=== PATIENT | female | born 1935 | race Caucasian/White ===

== ENCOUNTER → 2016-07-01 | Outpatient (CLI) | payer OTHER, MEDICARE | LOC: BHFA 10:45 | PROVIDERS: ATTEND Internal Medicine Cardiovascular Disease | DX: I48.91 Unspecified atrial fibrillation (principal); I34.8 Other nonrheumatic mitral valve disorders; I50.21 Acute systolic (congestive) heart failure; R60.9 Edema, unspecified; N18.4 Chronic kidney disease, stage 4 (severe); E03.9 Hypothyroidism, unspecified; N25.81 Secondary hyperparathyroidism of renal origin ==

== ENCOUNTER 2016-08-31 15:33 | Inpatient (IN) | payer OTHER, MEDICARE ==
--- NOTE | 2016-08-31 16:00 | EDPHY ---
H & P Stated Complaint: ?ALLERGIC REACTION ITCHY EYES/BODY EDEMA Time Seen by Provider: 08/31/16 15:59 Source: Patient Exam Limitations: No limitations - Personal History Current Tetanus/Diphtheria Vaccine: No Tetanus Vaccine Date: <10 YRS - Medical/Surgical History Hx Asthma: No Hx Chronic Respiratory Disease: No Hx Diabetes: No Hx Cardiac Disease: Yes Hx Renal Disease: Yes Hx Cirrhosis: No Hx Alcoholism: No Hx HIV/AIDS: No Hx Splenectomy or Spleen Trauma: No Other PMH: CHF, valve repair, magdalene hip repairs - Social History Smoking Status: Never smoked Constitutional: Initial Vital Signs Temperature (C) 36.7 C 08/31/16 15:48 Heart Rate 94 08/31/16 15:48 Respiratory Rate 17 08/31/16 15:48 Blood Pressure 109/62 08/31/16 15:48 O2 Sat (%) 94 08/31/16 15:48 O2 Delivery Mode Room Air Allergies/Adverse Reactions: IDODINE Allergy (Uncoded 08/31/16 15:45) SEASONAL Allergy (Uncoded 08/31/16 15:45) SNEEZING, RUNNY NOSE Home Medications: Medication Instructions Recorded Ascorbic Acid [Vitamin C 500 mg 500 mg PO TID 12/17/15 (*)] Herbals/Supplements -Info Only 1 ea PO DAILY 12/17/15 Acetaminophen [Tylenol 325mg (*)] 650 mg PO Q4 PRN #0 tab 01/10/16 Carvedilol [Coreg (*)] 12.5 mg PO BIDMEAL #0 tab 01/10/16 Fluocinolone 0.025% [Synalar 1 naheed TP TID #1 cream 01/10/16 0.025%] Magnesium Oxide [Magnesium Oxide 400 mg PO DAILY #30 tab 01/10/16 400 mg (*)] Nature Throid 65mg 1 tab PO DAILY #0 01/10/16 AMOXICILLIN 08/31/16 Torsemide 08/31/16 Departure - Departure Referrals: Shiloh Gotti MD [Primary Care Provider] - As per Instructions
[2016-08-31] MEDS ORDERED: FAMOTIDINE 20 MG/2 ML SDV IVP ONE (16:26)
--- NOTE | 2016-08-31 16:33 | CPEKG ---
Heart Rate: 103 RR Interval: 583 QRSD Interval: 134 QT Interval: 392 QTC Interval: 513 QRS [place]: -90 T Wave [place]: 77 EKG Severity - ABNORMAL ECG - EKG Impression: ATRIAL FIBRILLATION, V-RATE 74-144 EKG Impression: NONSPECIFIC IVCD WITH LAD EKG Impression: LEFT VENTRICULAR HYPERTROPHY Electronically Signed By: Denan Pulido 31-Aug-2016 19:39:06
--- NOTE | 2016-08-31 16:46 | EDPHY ---
H & P Stated Complaint: ?ALLERGIC REACTION ITCHY EYES/BODY EDEMA Time Seen by Provider: 08/31/16 15:59 HPI/ROS: CHIEF COMPLAINT: rash, increased leg swelling HISTORY OF PRESENT ILLNESS: 80-year-old female with past medical history of systolic heart failure, chronic atrial fibrillation, chronic kidney disease, hypertension, mitral and tricuspid valve repair presents emergency department complaining of a itchy rash that started yesterday. Patient is finishing a 5 day course of amoxicillin today from a dental procedure she had done in [place] 5 days ago. She reports it started with swelling around her eyes and progressed to a rash that is itchy to her arms, legs and torso. She denies wheezing, tongue swelling, difficulty breathing. Patient also reports increasing leg swelling over the past week with increased shortness of breath on exertion. She denies chest pain. Patient denies fevers or chills, no abdominal pain, no nausea, vomiting or diarrhea. She does report she has been feeling more tired over the last week and is sleeping a lot. REVIEW OF SYSTEMS: A comprehensive 10 point review of systems is otherwise negative aside from elements mentioned in the history of present illness. Source: Patient Exam Limitations: No limitations - Personal History Current Tetanus/Diphtheria Vaccine: No Tetanus Vaccine Date: <10 YRS - Medical/Surgical History Hx Asthma: No Hx Chronic Respiratory Disease: No Hx Diabetes: No Hx Cardiac Disease: Yes Hx Renal Disease: Yes Hx Cirrhosis: No Hx Alcoholism: No Hx HIV/AIDS: No Hx Splenectomy or Spleen Trauma: No Other PMH: CHF, valve repair, magdalene hip repairs - Social History Smoking Status: Never smoked - Physical Exam Exam: Physical Exam Gen: Alert and Oriented, NAD HEENT: PERRL, moist mucous membranes NECK: no meningismus CV: Systolic murmur, irregular rhythm PULM: CTAB, no wheezes ABDOMEN: soft, swelling, non tender to palpation, BS present BACK: No CVA tenderness NEURO: Neurologically grossly intact EXTREMITIES: Pitting edema bilateral lower extremities with dry scaly rash. SKIN: Raised red rash to face, trunk, arms and legs PSYCH: answers questions appropriately. Constitutional: Initial Vital Signs Temperature (C) 36.7 C 08/31/16 15:48 Heart Rate 94 08/31/16 15:48 Respiratory Rate 17 08/31/16 15:48 Blood Pressure 109/62 08/31/16 15:48 O2 Sat (%) 94 04/09/17 15:48 O2 Delivery Mode Nasal Cannula O2 (L/minute) 2 Allergies/Adverse Reactions: IDODINE Allergy (Uncoded 08/31/16 15:45) SEASONAL Allergy (Uncoded 08/31/16 15:45) SNEEZING, RUNNY NOSE Home Medications: Medication Instructions Recorded Ascorbic Acid [Vitamin C 500 mg 500 mg PO QID 12/17/15 (*)] Herbals/Supplements -Info Only 1 ea PO DAILY 12/17/15 Aspirin EC [Aspirin EC 81 mg (*)] 81 mg PO DAILY 08/31/16 Calcitriol [Calcitriol (*)] 0 mcg PO DAILY 08/31/16 Carvedilol [Coreg (*)] 6.25 mg PO BIDMEAL 08/31/16 Melatonin [Melatonin 3 MG (*)] 3 mg PO HS 08/31/16 Thyroid 65 mg PO DAILY 08/31/16 Medical Decision Making - Diagnostics EKG Interpretation: EKG shows atrial fibrillation with nonspecific intraventricular conduction delay with left axis deviation Imaging: Chest x-ray independently reviewed by me- Impression: Chronic compensated CHF with a dominant large left atrium. Dictated By: Shaun Hernandez MD ED Course/Re-evaluation: 80-year-old female with history of CHF and chronic AFib unwilling to take anticoagulation with a echocardiogram done in December of 2015 showing a thrombus in her left atria, presents emergency department with worsening shortness of breath and swelling in her lower extremities as well as an allergic reaction to amoxicillin with urticaria and a pruritic rash. IV is established, CBC, chemistry panel, BMP, troponin, EKG, chest x-ray those have been ordered. Patient is given 25 mg of Benadryl IV and 20 mg of Pepcid for her rash. Patient has a BNP of 2780, troponin is negative, CBC is unremarkable, creatinine is 1.3 which is baseline for patient, BUN is 34. Troponin is negative. She is refusing a dose of IV Lasix. Patient will be admitted to the hospitalist for a congestive heart failure exacerbation as well as she will be treated for this rash which is likely an allergic reaction to amoxicillin. Patient agrees with this plan. - Data Points Laboratory Results: Laboratory Results 09/01/16 04:05 09/01/16 04:05 Medications Given: Discontinued Medications Bumetanide (Bumex) 0.5 mg IVP DAILY ONE Stop: 08/31/16 17:38 Last Admin: 08/31/16 18:31 Dose: 0.5 mg Bumetanide (Bumex) 0.5 mg IVP ONCE ONE Stop: 09/01/16 15:59 Last Admin: 09/01/16 16:28 Dose: 0.5 mg Diphenhydramine HCl (Benadryl Injection) 25 mg IVP EDNOW ONE Stop: 08/31/16 16:27 Last Admin: 08/31/16 17:03 Dose: 25 mg Famotidine (Pepcid) 20 mg IVP EDNOW ONE Stop: 08/31/16 16:27 Last Admin: 08/31/16 17:04 Dose: 20 mg Prednisone (Prednisone) 60 mg PO ONCE ONE Stop: 09/01/16 15:59 Last Admin: 09/01/16 16:29 Dose: 60 mg Departure - Departure Disposition: [facility] Acute Clinical Impression: CHF exacerbation Qualifiers: Congestive heart failure type: systolic Qualified Code(s): I50.23 - Acute on chronic systolic (congestive) heart failure Condition: Fair
[2016-08-31 16:48] LABS: % IMMATURE GRANULYOCYTES 0.3 % (0.0-1.1); ABSOLUTE IMMATURE GRANULOCYTES 0.02 10^3/uL (0.00-0.10); ADD DIFF? NO; ADD MORPH? NO; ADD SCAN? NO; ATYPICAL LYMPHOCYTE FLAG 10 (0-99); FRAGMENT RBC FLAG 0 (0-99); HEMATOCRIT 35.9 % (38.0-47.0); HEMOGLOBIN 12.2 g/dL (12.6-16.3); LEFT SHIFT FLG 0 (0-99); LIPEMIA HEMOLYSIS FLAG 90 (0-99); MEAN CELL HEMOGLOBIN 32.4 pg (27.9-34.1); MEAN CELL VOLUME 95.5 fL (81.5-99.8); MEAN PLATELET VOLUME 9.2 fL (8.7-11.7); PLATELET CLUMPS FLAG 0 (0-99); PLATELET COUNT 197 10^3/uL (150-400); RED BLOOD CELL COUNT 3.76 10^6/uL (4.18-5.33); RED CELL DISTRIBUTION WIDTH 14.1 % (11.5-15.2)
[2016-08-31 17:05] LABS: INR 1.15 (0.83-1.16); PROTIME(PATIENT) 14.7 SEC (12.0-15.0)
[2016-08-31 17:06] LABS: APTT 33.1 SEC (23.0-38.0)
[2016-08-31 17:09] LABS: ANION GAP 11 mEq/L (8-16); CALCIUM 9.2 mg/dL (8.5-10.4); CARBON DIOXIDE 25 mEq/l (22-31); CHLORIDE 101 mEq/L (97-110); CREATININE 1.3 mg/dL (0.6-1.0); GLOMERULAR FILTRATION RATE 39; GLUCOSE 101 mg/dL (70-100); POTASSIUM 4.5 mEq/L (3.5-5.2); SODIUM 137 mEq/L (134-144)
[2016-08-31 17:19] LABS: TROPONIN I < 0.012 ng/mL (0-0.034)
[2016-08-31] MEDS ORDERED: ONDANSETRON DISINTEGRATING 4 MG TAB PO PRN (17:35)
[2016-08-31] MEDS ORDERED: oxyCODONE IR 5 MG TAB PO PRN (17:35)
[2016-08-31] MEDS ORDERED: ACETAMINOPHEN 325 MG TAB PO PRN (17:35)
[2016-08-31] MEDS ORDERED: BUMETANIDE 1 MG/4 ML VIAL IVP ONE (17:37)
--- NOTE | 2016-08-31 18:14 | GHP ---
[f rep st] HISTORY AND PHYSICAL DATE OF ADMISSION: 08/31/2016 CHIEF COMPLAINT: Rash. HISTORY OF PRESENT ILLNESS: This is an 80-year-old female with systolic heart failure who presents with a rash. She started amoxicillin a few days ago due to a dental procedure that was performed in [facility]. She has taken now 2 days' worth of amoxicillin, tonight was supposed to be her last dose. She noticed a rash that started a couple days ago. Pruritic, on her face. It seems to have start ed on her shoulders but it spread to her chest and face. She also notes some eye edema. She has no oral involvement. She also notes that she has gained water weight recently. She prefers holistic medicine overall and it seems to be intermittently, taking her torsemide and Aldactone. She feels a s though these make her itch as well. She notes that she has gained weight. She has gotten more sh ort of breath with exertion. She has increased edema in her legs as well as abdominal distention. She has no chest pain. PAST MEDICAL/SURGICAL HISTORY: 1. Systolic CHF with an EF of 40-45%. 2. Chronic kidney disease. Baseline about 1.4. 3. Chronic atrial fibrillation with possible LA thrombus, refuses anticoagulation, has been on aspi rin. MEDICATIONS: Please see medication reconciliation. ALLERGIES: Iodine. FAMILY HISTORY: No heart disease. SOCIAL HISTORY: She occasionally drinks alcohol. She does not smoke. She is very concerned about her son whose partner has had a stroke about a year ago and has never recovered. REVIEW OF SYSTEMS: A 10-point review of systems is conducted and is negative except per HPI. PHYSICAL EXAM: VITAL SIGNS: Blood pressure 109/62, heart rate 94, respiration rate 17, saturating 94% on room air, temperature is 36.7. GENERAL: The patient is a very pleasant female who appears m ildly uncomfortable due to itching, otherwise no acute distress. HEENT shows her to be normocephali c, atraumatic. CARDIOVASCULAR: Irregularly irregular. She has a split S2. There are no murmurs, rubs, or gallops. PULMONARY: Lungs clear to auscultation bilaterally. ABDOMEN: Soft, mildly dist ended, otherwise not tender to palpation. SKIN: A diffuse papular rash, consistent with urticaria on her face, ankles and chest. exam: No Mccrary. NEUROLOGIC: Alert and oriented x3. She is mov ing all extremities. PSYCHIATRIC: Normal mood and affect. LABS: Hemoglobin 12.2. INR is 1.1. Creatinine is 1.3. BNP is 2780. DATA: 1. EKG, which I personally reviewed and interpreted, shows incomplete left bundle branch block. Sh avani is in AFib. This is unchanged from prior. 2. Chest x-ray, which I personally reviewed and interpreted, shows she has cardiomegaly, she has mi ld cephalization of her pulmonary vasculature. IMPRESSION AND PLAN: An 80-year-old female who presents with volume overload, likely secondary to c ongestive heart failure. 1. Acute on chronic systolic congestive heart failure: Suspect that this is due to her unwillingne ss to take diuretics. She has an ejection fraction of 40-45%. I do not think we need to repeat an echocardiogram at this point. I will trend troponins. We will give her a dose of Bumex as she does not furosemide. I have scheduled this for 0.5 mg daily. We will follow her electrolytes while on IV diuretics. Follow her weights and I's and O's. 2. Urticaria: Suspect this due to amoxicillin. She has already received Pepcid as well as Benadry l. We will not give her additional treatment at this point but consider steroids if this worsens. 3. Atrial fibrillation: She possibly had a left atrial thrombus seen last summer. She has refused anticoagulation. She is ambivalent about aspirin. I have written for her to start this. She is c urrently rate controlled. 4. Chronic kidney disease. Baseline creatinine about 1.4: Follow her renal function closely, avoi d nephrotoxins. 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 Agarwal. 5. Code status is full. 6. VTE risk is high. I will give her subcu Lovenox. /[id number]/MODL
[2016-08-31] MEDS: ASCORBIC ACID 500 MG TAB PO SCH (21:08)
[2016-08-31] MEDS: MELATONIN 3 MG TAB PO SCH (21:08)
[2016-08-31] MEDS: CARVEDILOL 6.25 MG TAB PO SCH (21:08)
[2016-08-31] MEDS: diphenhydrAMINE 25 MG CAP PO PRN (23:52)
[2016-09-01 04:43] LABS: % IMMATURE GRANULYOCYTES 0.5 % (0.0-1.1); ABSOLUTE IMMATURE GRANULOCYTES 0.02 10^3/uL (0.00-0.10); ADD DIFF? NO; ADD MORPH? NO; ADD SCAN? NO; ATYPICAL LYMPHOCYTE FLAG 10 (0-99); FRAGMENT RBC FLAG 0 (0-99); HEMATOCRIT 32.3 % (38.0-47.0); HEMOGLOBIN 10.7 g/dL (12.6-16.3); LEFT SHIFT FLG 0 (0-99); LIPEMIA HEMOLYSIS FLAG 80 (0-99); MEAN CELL HEMOGLOBIN 32.2 pg (27.9-34.1); MEAN CELL HEMOGLOBIN CONCENTR. 33.1 g/dL (32.4-36.7); MEAN CELL VOLUME 97.3 fL (81.5-99.8); MEAN PLATELET VOLUME 9.2 fL (8.7-11.7); PLATELET CLUMPS FLAG 0 (0-99); PLATELET COUNT 160 10^3/uL (150-400); RED BLOOD CELL COUNT 3.32 10^6/uL (4.18-5.33); RED CELL DISTRIBUTION WIDTH 14.2 % (11.5-15.2)
[2016-09-01 05:10] LABS: ANION GAP 7 mEq/L (8-16); CARBON DIOXIDE 24 mEq/l (22-31); CHLORIDE 106 mEq/L (97-110); CREATININE 1.4 mg/dL (0.6-1.0); GLOMERULAR FILTRATION RATE 36; GLUCOSE 74 mg/dL (70-100); SODIUM 137 mEq/L (134-144)
[2016-09-01 05:11] LABS: TROPONIN I 0.016 ng/mL (0-0.034)
[2016-09-01] MEDS: CARVEDILOL 6.25 MG TAB PO SCH ×2 (08:23→18:14)
[2016-09-01] MEDS: ASPIRIN EC 81 MG TAB PO SCH (08:23)
[2016-09-01] MEDS: ASCORBIC ACID 500 MG TAB PO SCH ×4 (08:25→22:08)
[2016-09-01] MEDS: diphenhydrAMINE 25 MG CAP PO PRN ×2 (08:31→15:56)
[2016-09-01] MEDS: THYROID 65 MG PO SCH (09:02)
[2016-09-01] MEDS: ENOXAPARIN 30 MG/0.3 ML SYR SC SCH (09:21)
[2016-09-01] MEDS ORDERED: BUMETANIDE 1 MG/4 ML VIAL IVP ONE (15:58)
[2016-09-01] MEDS ORDERED: predniSONE 20 MG TAB PO ONE (15:58)
--- NOTE | 2016-09-01 16:03 | HOSPPROG ---
Hospitalist Progress Note Assessment/Plan: 80 yo F w AF, systolic heart failure and recent Shirin tooth extraction here w rash rash: suspect amoxicillin allergy although she notes rash to lasix as well so may have sulfa allergy ongoing sx dose of pred 60 X 1 systolic heart failure: elevated bnp and edema add'l dose bumex now AF: rate controlled on asa has refused anticoag tooth extraction: has essentially completed course of abx dispo: likely home in AM Subjective: itching. tele: AF (interp by me) Objective: Vital Signs Temp Pulse Resp BP Pulse Ox 36.9 C 100 20 113/70 91 L 09/01/16 15:41 09/01/16 15:41 09/01/16 15:41 09/01/16 15:41 09/01/16 15:43 Laboratory Results 09/01/16 04:05 09/01/16 04:05 08/31/16 09/01/16 09/02/16 05:59 05:59 05:59 Intake Total 650 Output Total 800 Balance -150 PT 14.7 SEC (12.0-15.0) 08/31/16 16:40 INR 1.15 (0.83-1.16) 08/31/16 16:40 - Physical Exam Constitutional: no apparent distress, appears nourished Eyes: PERRL, anicteric sclera Ears, Nose, Mouth, Throat: moist mucous membranes, hearing normal Cardiovascular: no murmur, rub, or gallop, irregularly irregular Respiratory: no respiratory distress, no rales or rhonchi Gastrointestinal: normoactive bowel sounds, soft, non-tender abdomen Genitourinary: No hines in urethra Skin: other (erythematous rash throughout. skin sloughing on feet) Musculoskeletal: full muscle strength, no muscle tenderness Neurologic: AAOx3 ICD10 Worksheet Patient Problems: Problems Problem Status Onset CHF exacerbation Acute Transient ischemic attack Active Atrial fibrillation Acute CHF (congestive heart failure) Acute Chronic Disease Mgmt/Transitional Care Acute
[2016-09-01] MEDS: MELATONIN 3 MG TAB PO SCH (22:08)
[2016-09-02 06:46] VITALS: O2SAT 94
[2016-09-02 07:54] VITALS: BP 111/68; PULSE 93; RESP 16; TEMP 97.5
[2016-09-02] MEDS: CARVEDILOL 6.25 MG TAB PO SCH (08:28)
[2016-09-02] MEDS: ASCORBIC ACID 500 MG TAB PO SCH (08:28)
[2016-09-02] MEDS: ENOXAPARIN 30 MG/0.3 ML SYR SC SCH (08:28)
[2016-09-02] MEDS: THYROID 65 MG PO SCH (08:28)
[2016-09-02] MEDS: ASPIRIN EC 81 MG TAB PO SCH (08:28)
[2016-09-02] MEDS ORDERED: predniSONE 20 MG TAB PO ONE (10:33)
--- NOTE | 2016-09-02 10:34 | HOSPPROG ---
Hospitalist Progress Note Assessment/Plan: 80 yo F w AF, systolic heart failure and recent Shirin tooth extraction here w rash rash: suspect amoxicillin allergy although she notes rash to lasix as well so may have sulfa allergy ongoing sx dose of pred 60 X 1 systolic heart failure: elevated bnp and edema add'l dose bumex now AF: rate controlled on asa has refused anticoag tooth extraction: has essentially completed course of abx dispo: home today > 30 minutes Subjective: rash better. ready for dc Objective: Vital Signs Temp Pulse Resp BP Pulse Ox 36.4 C 93 16 111/68 94 09/02/16 07:54 09/02/16 07:54 09/02/16 07:54 09/02/16 07:54 09/02/16 07:54 09/01/16 09/02/16 09/03/16 05:59 05:59 05:59 Intake Total 2630 Output Total 0 Balance 580 PT 14.7 SEC (12.0-15.0) 08/31/16 16:40 INR 1.15 (0.83-1.16) 08/31/16 16:40 - Physical Exam Constitutional: no apparent distress, not in pain Eyes: PERRL, anicteric sclera Ears, Nose, Mouth, Throat: moist mucous membranes, hearing normal Cardiovascular: no murmur, rub, or gallop, irregularly irregular Respiratory: no respiratory distress, no rales or rhonchi Gastrointestinal: normoactive bowel sounds, soft, non-tender abdomen Genitourinary: No hines in urethra Skin: warm, normal color Musculoskeletal: full muscle strength Neurologic: AAOx3 Psychiatric: interacting appropriately ICD10 Worksheet Patient Problems: Problems Problem Status Onset CHF exacerbation Acute Transient ischemic attack Active Atrial fibrillation Acute CHF (congestive heart failure) Acute Chronic Disease Mgmt/Transitional Care Acute
--- NOTE | 2016-09-02 11:08 | GDS ---
[f rep st] DISCHARGE SUMMARY DISCHARGE DIAGNOSES: 1. Drug rash, presumed secondary to either amoxicillin or Lasix. 2. Atrial fibrillation. 3. Mild systolic heart failure. CONSULTS DURING THIS ADMISSION: None. HOSPITAL COURSE: Please see admission history and physical by Dr. Jose Alberto Flynn. Patient presented with rash attributable to the aforementioned drugs. She received a couple doses o f prednisone after it was persistent through some Benadryl. She is discharged home today. Given the fact that this was possibly due to the sulfa part of Lasix, she was given a prescription for 0.5 of Bumex to take on a daily p.r.n. basis, as this is how she t akes her Lasix. She is urged to follow up with Dr. Gus Longoria, her jet pilot. /[id number]/MODL
== END 2016-09-02 10:53 | disposition home or self-care (01) | DRG 293 ==
LOC: F2W 18:33 → OBSVTOIN 09-01 15:59
PROVIDERS: ADMIT Student in an Organized Health Care Education/Training Program; ATTEND Internal Medicine
DX: I50.23 Acute on chronic systolic (congestive) heart failure (principal); L27.0 Generalized skin eruption due to drugs and medicaments taken internally; T36.0X5A Adverse effect of penicillins, initial encounter; T50.1X5A Adverse effect of loop [high-ceiling] diuretics, initial encounter; N18.9 Chronic kidney disease, unspecified; I48.91 Unspecified atrial fibrillation; Z79.82 Long term (current) use of aspirin
CPT/HCPCS: 96374; G0378; J1200; J1650

== ENCOUNTER → 2016-09-08 | Outpatient (CLI) | payer OTHER, MEDICARE | LOC: BHFA 09:15 | PROVIDERS: ATTEND Internal Medicine Cardiovascular Disease | DX: I42.9 Cardiomyopathy, unspecified (principal) ==

== ENCOUNTER 2017-04-29 15:29 | Inpatient (IN) | payer OTHER, MEDICARE ==
--- NOTE | 2017-04-29 15:47 | EDPHY ---
HPI/HX/ROS/PE/MDM Narrative: CHIEF COMPLAINT: Body cramping, malaise, and chills HISTORY OF PRESENT ILLNESS: The patient is an 81 y/o female with a history of CHF, atrial fibrillation, and a valve repair complaining body cramps, general malaise, and chills since Thursday , 3 days ago. Her symptoms have progressively worsened since Thursday and she has felt shakier and weaker since then as well. Denies a history of fever. Denies upper respiratory infection symptoms, or cough. Patient reports having a sat monitor at home and noticing that last night her heart rate was 134 and her O2Sats were in the 80s. Denies taking anticoagulants, Aspirin or Lasix. Denies receiving flu vaccination this year. No sore throat, chest pain, shortness of breath, vomiting, diarrhea, urinary complaints, headache, lightheadedness, vision changes. REVIEW OF SYSTEMS: Aside from elements discussed in the HPI, a comprehensive 10-point review of systems was reviewed and is negative. PAST MEDICAL HISTORY: CHF, valve repair, bilateral hip repair, hypothyroid, atrial fibrillation, renal insufficiency SOCIAL HISTORY: Lives in [place], single, retired VITAL SIGNS: BP: 116/59, others reviewed by me as normal. Heart rate in the 70s , sinus on the monitor. GENERAL: Well-developed, well-nourished, resting comfortably in no respiratory distress. HEENT: Atraumatic. Eyes: No icterus, no injection. Mouth: moist mucous membranes. No erythema or lesions. Neck: supple with no adenopathy. LUNGS: Clear to auscultation bilaterally, no wheezes, rhonchi or rales. CARDIAC: Soft diastolic murmur. Regular rate and rhythm, no rubs or gallops. ABDOMEN: Soft, nontender, nondistended, bowel sounds normal. BACK: No CVA tenderness. EXTREMITIES: Bilateral pedal edema, right worse than left. No trauma. Range of motion is normal throughout. NEURO: Alert and oriented, grossly nonfocal. SKIN: Warm and dry, no rash. PSYCHIATRIC: Normal mentation, no agitation. Portions of this note were transcribed by a medical office representative. I personally performed a history, physical exam, medical decision making, and confirmed accuracy of information the transcribed note. ED Course: The patient is an 81 y/o female with a history of CHF, atrial fibrillation, and a valve repair presenting with feeling weak and chilled since Thursday, 3 days ago. On exam she has a soft diastolic murmur and bilateral pedal edema. Chest X- ray, lower extremity US, and labs ordered. 1601: Chest x-ray reveals compensated chronic CHF. 1739: Patient's LFT's are elevated; RUQ US ordered. Spoke with radiologist, he reports the patient has negative US findings. 1837: Patient has an elevated d-dimer and creatinine. Unable to evaluate for pulmonary embolism secondary to the patient's elevated creatinine and history a contrast dye allergy. 1853: Consulted with hospitalist service, Dr. Somers accepts admission of this patient. Admitting diagnosis includes fatigue, history of tachycardia, elevated D-dimer and risks for pulmonary embolisms. Shortly after discussing the patient's course with the hospitalist service, patient was noted to develop a tachycardia. Initially this was felt to be atrial fibrillation, however the patient's rate is quite regular on the monitor. EKG was obtained and demonstrates a wide complex tachycardia. Course was discussed by Dr. Somers with Dr. Gerardo from Cardiology. Morphology of this tachycardia similar to patient's prior EKG when she was in atrial fibrillation with rapid ventricular rate. Decision was made that this rhythm most likely representing atrial fibrillation with aberrancy. Diltiazem was ordered. Patient's blood pressure remained stable. Patient was admitted to the PCU. MDM: Differential diagnosis of the patient's weakness, and rapid heart rate, was considered including but not limited to atrial fibrillation, pulmonary embolism , ventricular tachycardia, electrolyte abnormality, anemia, cardiac ischemia, pulmonary embolism, infectious causes including influenza. - Data Points Imaging Results: Imaging Impressions Chest X-Ray 04/29/17 16:01 Impression: Compensated chronic CHF. Imaging: Discussed imaging studies w/ pulp press tender Radiologist, I viewed and interpreted images myself Laboratory Results: Laboratory Results 04/29/17 16:14 04/29/17 16:14 04/29/17 04/29/17 04/29/17 17:05 16:14 16:14 WBC RBC Hgb Hct MCV MCH MCHC RDW Plt Count MPV Neut % (Auto) Lymph % (Auto) [place] % (Auto) Eos % (Auto) Baso % (Auto) Nucleat RBC Rel Count Absolute Neuts (auto) Absolute Lymphs (auto) Absolute Monos (auto) Absolute Eos (auto) Absolute Basos (auto) Absolute Nucleated RBC Immature Gran % Immature Gran # D-Dimer 3.98 ug/mLFEU H ug/mLFEU (0.00-0.50) VBG Lactic Acid Sodium Potassium Chloride Carbon Dioxide Anion Gap BUN Creatinine Estimated GFR Glucose Calcium Total Bilirubin Conjugated Bilirubin Unconjugated Bilirubin AST ALT Alkaline Phosphatase Troponin I NT-Pro-B Natriuret Pep 6370 pg/mL H pg/mL (0-450) Total Protein Albumin Urine Color YELLOW Urine Appearance HAZY Urine pH 5.0 (5.0-7.5) Ur Specific [place] 1.016 (1.002-1.030) Urine Protein NEGATIVE (NEGATIVE) Urine Ketones NEGATIVE (NEGATIVE) Urine Blood NEGATIVE (NEGATIVE) Urine Nitrate NEGATIVE (NEGATIVE) Urine Bilirubin NEGATIVE (NEGATIVE) Urine Urobilinogen NEGATIVE EU EU (0.2-1.0) Ur Leukocyte Esterase NEGATIVE (NEGATIVE) Urine RBC 1-3 /hpf /hpf (0-3) Urine WBC 1-3 /hpf /hpf (0-3) Ur Epithelial Cells TRACE /lpf /lpf (NONE-1+) Urine Bacteria TRACE /hpf H /hpf (NONE SEEN) Hyaline Casts 1-5 /lpf /lpf (0-1) Urine Mucus TRACE /lpf /lpf (NONE-1+) Urine Glucose NEGATIVE (NEGATIVE) 04/29/17 04/29/17 04/29/17 16:14 16:14 16:14 WBC 12.96 10^3/uL H 10^3/uL (3.80-9.50) RBC 3.58 10^6/uL L 10^6/uL (4.18-5.33) Hgb 11.9 g/dL L g/dL (12.6-16.3) Hct 34.8 % L % (38.0-47.0) MCV 97.2 fL fL (81.5-99.8) MCH 33.2 pg pg (27.9-34.1) MCHC 34.2 g/dL g/dL (32.4-36.7) RDW 13.7 % % (11.5-15.2) Plt Count 153 10^3/uL 10^3/uL (150-400) MPV 9.2 fL fL (8.7-11.7) Neut % (Auto) 84.4 % H % (39.3-74.2) Lymph % (Auto) 4.6 % L % (15.0-45.0) [place] % (Auto) 10.3 % % (4.5-13.0) Eos % (Auto) 0.1 % L % (0.6-7.6) Baso % (Auto) 0.2 % L % (0.3-1.7) Nucleat RBC Rel Count 0.0 % % (0.0-0.2) Absolute Neuts (auto) 10.94 10^3/uL H 10^3/uL (1.70-6.50) Absolute Lymphs (auto) 0.60 10^3/uL L 10^3/uL (1.00-3.00) Absolute Monos (auto) 1.33 10^3/uL H 10^3/uL (0.30-0.80) Absolute Eos (auto) 0.01 10^3/uL L 10^3/uL (0.03-0.40) Absolute Basos (auto) 0.03 10^3/uL 10^3/uL (0.02-0.10) Absolute Nucleated RBC 0.00 10^3/uL 10^3/uL (0-0.01) Immature Gran % 0.4 % % (0.0-1.1) Immature Gran # 0.05 10^3/uL 10^3/uL (0.00-0.10) D-Dimer VBG Lactic Acid 2.1 mmol/L mmol/L (0.7-2.1) Sodium 136 mEq/L mEq/L (134-144) Potassium 4.3 mEq/L mEq/L (3.5-5.2) Chloride 104 mEq/L mEq/L (97-110) Carbon Dioxide 20 mEq/l L mEq/l (22-31) Anion Gap 12 mEq/L mEq/L (8-16) BUN 34 mg/dL H mg/dL (7-23) Creatinine 1.4 mg/dL H mg/dL (0.6-1.0) Estimated GFR 36 Glucose 116 mg/dL H mg/dL (70-100) Calcium 8.8 mg/dL mg/dL (8.5-10.4) Total Bilirubin 0.9 mg/dL mg/dL (0.1-1.4) Conjugated Bilirubin 0.4 mg/dL mg/dL (0.0-0.5) Unconjugated Bilirubin 0.5 mg/dL mg/dL (0.0-1.1) AST 49 IU/L H IU/L (14-46) ALT 58 IU/L H IU/L (9-52) Alkaline Phosphatase 155 IU/L H IU/L (38-126) Troponin I 0.033 ng/mL ng/mL (0.000-0.034) NT-Pro-B Natriuret Pep Total Protein 6.0 g/dL L g/dL (6.3-8.2) Albumin 3.6 g/dL g/dL (3.5-5.0) Urine Color Urine Appearance Urine pH Ur Specific [place] Urine Protein Urine Ketones Urine Blood Urine Nitrate Urine Bilirubin Urine Urobilinogen Ur Leukocyte Esterase Urine RBC Urine WBC Ur Epithelial Cells Urine Bacteria Hyaline Casts Urine Mucus Urine Glucose General Time Seen by Provider: 04/29/17 15:45 Initial Vital Signs: Initial Vital Signs Temperature (C) 36.5 C 04/29/17 15:36 Heart Rate 69 04/29/17 15:36 Respiratory Rate 16 04/29/17 15:36 Blood Pressure 116/59 L 04/29/17 15:36 O2 Sat (%) 93 04/29/17 15:36 O2 Delivery Mode Room Air Allergies/Adverse Reactions: amoxicillin Allergy (Intermediate, Verified 04/29/17 15:35) Rash Iodinated Contrast- Oral and IV Dye Allergy (Verified 04/29/17 15:35) Penicillins Allergy (Verified 04/29/17 15:35) Rash SEASONAL Allergy (Uncoded 04/29/17 15:35) SNEEZING, RUNNY NOSE Home Medications: Medication Instructions Recorded Ascorbic Acid [Vitamin C 500 mg 500 mg PO TID 12/17/15 (*)] Herbals/Supplements -Info Only 1 ea PO DAILY 12/17/15 Calcitriol [Calcitriol (*)] 0.25 mcg PO WESA 08/31/16 Carvedilol [Coreg (*)] 6.25 mg PO BIDMEAL 08/31/16 Melatonin [Melatonin 3 MG (*)] 3 mg PO HS 08/31/16 Magnesium Oxide [Magnesium Oxide 400 mg PO HS 01/22/17 400 mg (*)] Vitamin B Complex [B Complex] 1 each PO DAILY 01/22/17 Thyroid [[place] Thyroid 60 MG (*)] 60 mg PO DAILY10 04/29/17 Departure - Departure Disposition: [facility] Inpatient Acute Clinical Impression: Malaise, Wide-complex tachycardia CHF exacerbation Qualifiers: Congestive heart failure type: unspecified congestive heart failure type Qualified Code(s): I50.9 - Heart failure, unspecified Condition: Fair Report Scribed for: Mary Alfonso Report Scribed by: Loreto Villasenor Date of Report: 04/29/17 Time of Report: 15:46
[2017-04-29 16:24] LABS: % IMMATURE GRANULYOCYTES 0.4 % (0.0-1.1); ABSOLUTE IMMATURE GRANULOCYTES 0.05 10^3/uL (0.00-0.10); ADD DIFF? NO; ADD MORPH? NO; ADD SCAN? NO; ATYPICAL LYMPHOCYTE FLAG 10 (0-99); FRAGMENT RBC FLAG 0 (0-99); HEMATOCRIT 34.8 % (38.0-47.0); HEMOGLOBIN 11.9 g/dL (12.6-16.3); LEFT SHIFT FLG 10 (0-99); LIPEMIA HEMOLYSIS FLAG 90 (0-99); MEAN CELL HEMOGLOBIN 33.2 pg (27.9-34.1); MEAN CELL HEMOGLOBIN CONCENTR. 34.2 g/dL (32.4-36.7); MEAN CELL VOLUME 97.2 fL (81.5-99.8); MEAN PLATELET VOLUME 9.2 fL (8.7-11.7); PLATELET CLUMPS FLAG 0 (0-99); PLATELET COUNT 153 10^3/uL (150-400); RED BLOOD CELL COUNT 3.58 10^6/uL (4.18-5.33); RED CELL DISTRIBUTION WIDTH 13.7 % (11.5-15.2)
[2017-04-29 16:37] LABS: ALANINE AMINOTRANSFERASE 58 IU/L (9-52); ALBUMIN 3.6 g/dL (3.5-5.0); ALKALINE PHOSPHATASE 155 IU/L (38-126); ANION GAP 12 mEq/L (8-16); ASPARTATE AMINOTRANSFERASE 49 IU/L (14-46); BILIRUBIN,TOTAL 0.9 mg/dL (0.1-1.4); BILIRUBIN-CONJUGATED 0.4 mg/dL (0.0-0.5); BILIRUBIN-UNCONJUGATED 0.5 mg/dL (0.0-1.1); CALCIUM 8.8 mg/dL (8.5-10.4); CARBON DIOXIDE 20 mEq/l (22-31); CHLORIDE 104 mEq/L (97-110); CREATININE 1.4 mg/dL (0.6-1.0); GLOMERULAR FILTRATION RATE 36; GLUCOSE 116 mg/dL (70-100); POTASSIUM 4.3 mEq/L (3.5-5.2); SODIUM 136 mEq/L (134-144)
[2017-04-29 16:48] LABS: TROPONIN I 0.033 ng/mL (0.000-0.034)
[2017-04-29 17:14] LABS: COLOR YELLOW; LEUKOCYTE ESTERASE,URINE NEGATIVE (NEGATIVE); NITRITE,URINE NEGATIVE (NEGATIVE)
[2017-04-29 17:19] LABS: BACTERIA TRACE /hpf (NONE SEEN); MUCUS TRACE /lpf (NONE-1+)
--- NOTE | 2017-04-29 19:06 | CPEKG ---
Heart Rate: 124 RR Interval: 484 QRSD Interval: 132 QT Interval: 364 QTC Interval: 523 QRS [place]: -88 T Wave [place]: 85 EKG Severity - ABNORMAL ECG - EKG Impression: WIDE COMPLEX TACHYCARDIA EKG Impression: NONSPECIFIC IVCD WITH LAD Electronically Signed By: Ed Dhillon 29-Apr-2017 21:51:37
[2017-04-29] MEDS ORDERED: AMIODARONE HCL 200 ML IV ONE (19:17)
[2017-04-29] MEDS ORDERED: AMIODARONE HCL 100 ML IV ONE (19:17)
[2017-04-29] MEDS ORDERED: CARVEDILOL 6.25 MG TAB PO ONE (19:29)
--- NOTE | 2017-04-29 19:46 | PDGENHP ---
History and Physical - Chief Complaint shaking chills - History of Present Illness 81 yo female with h/o A fib presented to ED complaining of shaking chills. The first episode was 3 days ago, she developed shaking chills after a shower. She took a nap, felt fine and went to her meditation group. The following day, she developed shaking chills again and canceled her activities. She gets body cramping associated with this. No fevers. No upper respiratory symptoms, cough or CP. She did feel a bit SOB while shaking episode, but no SOB at this time and denies pleuritic symptoms. No abdominal pain, N/V/D. No dysuria, frequency or urgency. She c/o eczema in her LE's. Her b/l LE's are erythematous and warm R>L. She has cracks on the soles of her feet. Workup in the ED revealed an elevated D dimer, elevated LFT's and elevated wbc' s. A LE u/s was performed and RUQ u/s was performed, results are pending. She then developed a rapid HR with EKG revealing wide complex tachycardia. This was similar morphology to her prior EKGS and she received oral coreg and IV diltiazem. She is admitted to the hospital for further evaluation. History Information - Allergies/Home Medication List Allergies/Adverse Reactions: amoxicillin Allergy (Intermediate, Verified 04/29/17 15:35) Rash Iodinated Contrast- Oral and IV Dye Allergy (Verified 04/29/17 15:35) Penicillins Allergy (Verified 04/29/17 15:35) Rash SEASONAL Allergy (Uncoded 04/29/17 15:35) SNEEZING, RUNNY NOSE Home Medications: Ascorbic Acid [Vitamin C 500 mg (*)] 500 mg PO TID 12/17/15 [Last Taken 04/29/17 ] Herbals/Supplements -Info Only 1 ea PO DAILY 12/17/15 [Last Taken 04/29/17] Calcitriol [Calcitriol (*)] 0.25 mcg PO WESA 08/31/16 [Last Taken 04/25/17] Carvedilol [Coreg (*)] 6.25 mg PO BIDMEAL 08/31/16 [Last Taken 04/29/17] Melatonin [Melatonin 3 MG (*)] 3 mg PO HS 08/31/16 [Last Taken 04/28/17] Magnesium Oxide [Magnesium Oxide 400 mg (*)] 400 mg PO HS 01/22/17 [Last Taken 04/28/17] Vitamin B Complex [B Complex] 1 each PO DAILY 01/22/17 [Last Taken Unknown] Thyroid [[place] Thyroid 60 MG (*)] 60 mg PO DAILY10 04/29/17 [Last Taken ] I have personally reviewed and updated: family history, medical history, social history, surgical history - Past Medical History Additional medical history: Chronic Atrial fibrillation - refuses anticoagulation. Left atrial thrombus - also refused anticoagulation for this. Chronic systolic heart failure EF 45%. Cardiomyopathy. CKD baseline Cr 1.4. MVR. Hypothyroidism. Eczema - Surgical History Additional surgical history: SALMA right and left hip. Mitral valve replacement. Cataract surgery - Social History Smoking Status: Never smoked Alcohol Use: None Drug Use: None Additional social history: Lives independently Review of Systems Review of Systems: ROS: 10pt was reviewed & negative except for what was stated in HPI & below Physical Exam Physical Exam: Temp Pulse Resp BP Pulse Ox 36.5 C 130 H 18 122/85 H 92 04/29/17 15:36 04/29/17 19:12 04/29/17 19:12 04/29/17 19:12 04/29/17 19:12 Constitutional: no apparent distress Eyes: PERRL Ears, Nose, Mouth, Throat: moist mucous membranes Cardiovascular: irregularly irregular, tachycardia Respiratory: no respiratory distress, clear to auscultation Gastrointestinal: normoactive bowel sounds, soft, non-tender abdomen Skin: warm, other (b/l LE's with flaking skin, foot callouses and cracks. L>R LE erythema and warmth ) Musculoskeletal: full muscle strength Neurologic: AAOx3 Psychiatric: interacting appropriately Lab Data & Imaging Review 04/29/17 16:14 04/29/17 16:14 WBC 12.96 10^3/uL (3.80-9.50) H 04/29/17 16:14 RBC 3.58 10^6/uL (4.18-5.33) L 04/29/17 16:14 Hgb 11.9 g/dL (12.6-16.3) L 04/29/17 16:14 Hct 34.8 % (38.0-47.0) L 04/29/17 16:14 MCV 97.2 fL (81.5-99.8) 04/29/17 16:14 MCH 33.2 pg (27.9-34.1) 04/29/17 16:14 MCHC 34.2 g/dL (32.4-36.7) 04/29/17 16:14 RDW 13.7 % (11.5-15.2) 04/29/17 16:14 Plt Count 153 10^3/uL (150-400) 04/29/17 16:14 MPV 9.2 fL (8.7-11.7) 04/29/17 16:14 Neut % (Auto) 84.4 % (39.3-74.2) H 04/29/17 16:14 Lymph % (Auto) 4.6 % (15.0-45.0) L 04/29/17 16:14 [place] % (Auto) 10.3 % (4.5-13.0) 04/29/17 16:14 Eos % (Auto) 0.1 % (0.6-7.6) L 04/29/17 16:14 Baso % (Auto) 0.2 % (0.3-1.7) L 04/29/17 16:14 Nucleat RBC Rel Count 0.0 % (0.0-0.2) 04/29/17 16:14 Absolute Neuts (auto) 10.94 10^3/uL (1.70-6.50) H 04/29/17 16:14 Absolute Lymphs (auto) 0.60 10^3/uL (1.00-3.00) L 04/29/17 16:14 Absolute Monos (auto) 1.33 10^3/uL (0.30-0.80) H 04/29/17 16:14 Absolute Eos (auto) 0.01 10^3/uL (0.03-0.40) L 04/29/17 16:14 Absolute Basos (auto) 0.03 10^3/uL (0.02-0.10) 04/29/17 16:14 Absolute Nucleated RBC 0.00 10^3/uL (0-0.01) 04/29/17 16:14 Immature Gran % 0.4 % (0.0-1.1) 04/29/17 16:14 Immature Gran # 0.05 10^3/uL (0.00-0.10) 04/29/17 16:14 D-Dimer 3.98 ug/mLFEU (0.00-0.50) H 04/29/17 16:14 VBG Lactic Acid 2.1 mmol/L (0.7-2.1) 04/29/17 16:14 Sodium 136 mEq/L (134-144) 04/29/17 16:14 Potassium 4.3 mEq/L (3.5-5.2) 04/29/17 16:14 Chloride 104 mEq/L (97-110) 04/29/17 16:14 Carbon Dioxide 20 mEq/l (22-31) L 04/29/17 16:14 Anion Gap 12 mEq/L (8-16) 04/29/17 16:14 BUN 34 mg/dL (7-23) H 04/29/17 16:14 Creatinine 1.4 mg/dL (0.6-1.0) H 04/29/17 16:14 Estimated GFR 36 04/29/17 16:14 Glucose 116 mg/dL (70-100) H 04/29/17 16:14 Calcium 8.8 mg/dL (8.5-10.4) 04/29/17 16:14 Total Bilirubin 0.9 mg/dL (0.1-1.4) 04/29/17 16:14 Conjugated Bilirubin 0.4 mg/dL (0.0-0.5) 04/29/17 16:14 Unconjugated Bilirubin 0.5 mg/dL (0.0-1.1) 04/29/17 16:14 AST 49 IU/L (14-46) H 04/29/17 16:14 ALT 58 IU/L (9-52) H 04/29/17 16:14 Alkaline Phosphatase 155 IU/L (38-126) H 04/29/17 16:14 Troponin I 0.033 ng/mL (0.000-0.034) 04/29/17 16:14 NT-Pro-B Natriuret Pep 6370 pg/mL (0-450) H 04/29/17 16:14 Total Protein 6.0 g/dL (6.3-8.2) L 04/29/17 16:14 Albumin 3.6 g/dL (3.5-5.0) 04/29/17 16:14 Urine Color YELLOW 04/29/17 17:05 Urine Appearance HAZY 04/29/17 17:05 Urine pH 5.0 (5.0-7.5) 04/29/17 17:05 Ur Specific [place] 1.016 (1.002-1.030) 04/29/17 17:05 Urine Protein NEGATIVE (NEGATIVE) 04/29/17 17:05 Urine Ketones NEGATIVE (NEGATIVE) 04/29/17 17:05 Urine Blood NEGATIVE (NEGATIVE) 04/29/17 17:05 Urine Nitrate NEGATIVE (NEGATIVE) 04/29/17 17:05 Urine Bilirubin NEGATIVE (NEGATIVE) 04/29/17 17:05 Urine Urobilinogen NEGATIVE EU (0.2-1.0) 04/29/17 17:05 Ur Leukocyte Esterase NEGATIVE (NEGATIVE) 04/29/17 17:05 Urine RBC 1-3 /hpf (0-3) 04/29/17 17:05 Urine WBC 1-3 /hpf (0-3) 04/29/17 17:05 Ur Epithelial Cells TRACE /lpf (NONE-1+) 04/29/17 17:05 Urine Bacteria TRACE /hpf (NONE SEEN) H 04/29/17 17:05 Hyaline Casts 1-5 /lpf (0-1) 04/29/17 17:05 Urine Mucus TRACE /lpf (NONE-1+) 04/29/17 17:05 Urine Glucose NEGATIVE (NEGATIVE) 04/29/17 17:05 Visualized and Interpreted Chest x-ray results: Yes Chest X-Ray results: other (marked cardiomegaly, no overt failure or PNA) Visualized and Interpreted EKG results: Yes EKG additional interpertation: wide complex tachycardia, ?a fib or flutter, similar QRS morphology to prior ekgs Assessment & Plan Assessment: Shaking chills - this is concerning for bacteremia and her feet could be a portal of entry for bacteria. Suspect LE cellulitis. Also consider hypothyroidism or atypical symptom of rapid a fib. -Blood cultures pending -send PCT -Cover with IV Ancef for possible LE cellulitis LE cellulitis - Ancef, wound care. Needs outpt referral to podiatry A fib / flutter with RVR - Considered slow VT, but her QRS morphology is the same as in previous EKGs. Suspect she needs better rate control. Discussed anti-coagulation and she adamantly refuses this and acknowledges risk of stroke or PE. She also refuses Aspirin. -PO Coreg now -Increase coreg dose to 9.375 BID -avoid diltiazem with low EF -echo in am -discussed with cards, they will see in am H/O left atrial thrombus - she has refused anticoagulation in the past and continues to do so, acknowledging risk of embolic event. Elevated D dimer - she has know h/o LA thrombus and no CP, SOB or pleuritic symptoms to suggest PE. Furthermore, she adamantly refuses anti-coagulation. Believes IV contrast caused her kidney disease and won't consider CTA. V/Q scan is considered but with patient refusing AC for any reason, will defer. Chronic systolic HF - appears compensated, last EF 30% in 06/2016 per Fabrice notes CKD - Cr at baseline Elevated LFT's - mild. RUQ U/S done in ED, results pending. Follow. MVR - cards to see DVT PPLX - Lovenox (though patient may refuse) Dispo - PCU, inpt
[2017-04-29] MEDS ORDERED: ONDANSETRON 4 MG/2 ML VIAL IVP PRN (19:59)
[2017-04-29] MEDS ORDERED: ACETAMINOPHEN 325 MG TAB PO PRN (19:59)
[2017-04-29] MEDS ORDERED: ONDANSETRON DISINTEGRATING 4 MG TAB PO PRN (19:59)
[2017-04-29] MEDS ORDERED: DILTIAZEM 25 MG/5 ML VIAL IVP ONE (20:00)
[2017-04-29] MEDS ORDERED: DILTIAZEM 125 MG in D5W 125 ML IV SCH (20:00)
[2017-04-29] MEDS ORDERED: CALCITRIOL 0.25 MCG CAP PO SCH (21:00)
[2017-04-29] MEDS ORDERED: MAGNESIUM OXIDE 400 MG TAB PO SCH (21:00)
[2017-04-29] MEDS: MELATONIN 3 MG TAB PO SCH (22:25)
[2017-04-29] MEDS: ceFAZolin 2 GM/DEXTROSE 100 ML IV SCH (23:01)
[2017-04-30] MEDS: ceFAZolin 2 GM/DEXTROSE 100 ML IV SCH ×2 (04:19→13:25)
[2017-04-30 05:18] LABS: % IMMATURE GRANULYOCYTES 0.3 % (0.0-1.1); ABSOLUTE IMMATURE GRANULOCYTES 0.02 10^3/uL (0.00-0.10); ADD DIFF? NO; ADD MORPH? NO; ADD SCAN? NO; ATYPICAL LYMPHOCYTE FLAG 20 (0-99); FRAGMENT RBC FLAG 0 (0-99); HEMATOCRIT 29.5 % (38.0-47.0); HEMOGLOBIN 10.1 g/dL (12.6-16.3); LEFT SHIFT FLG 0 (0-99); LIPEMIA HEMOLYSIS FLAG 90 (0-99); MEAN CELL HEMOGLOBIN 33.2 pg (27.9-34.1); MEAN CELL HEMOGLOBIN CONCENTR. 34.2 g/dL (32.4-36.7); MEAN PLATELET VOLUME 9.4 fL (8.7-11.7); PLATELET CLUMPS FLAG 0 (0-99); PLATELET COUNT 144 10^3/uL (150-400); RED BLOOD CELL COUNT 3.04 10^6/uL (4.18-5.33); RED CELL DISTRIBUTION WIDTH 13.7 % (11.5-15.2)
[2017-04-30 05:25] LABS: ALANINE AMINOTRANSFERASE 51 IU/L (9-52); ALBUMIN 2.8 g/dL (3.5-5.0); ALKALINE PHOSPHATASE 136 IU/L (38-126); ANION GAP 10 mEq/L (8-16); ASPARTATE AMINOTRANSFERASE 39 IU/L (14-46); BILIRUBIN,TOTAL 0.5 mg/dL (0.1-1.4); CALCIUM 8.2 mg/dL (8.5-10.4); CARBON DIOXIDE 20 mEq/l (22-31); CHLORIDE 107 mEq/L (97-110); CREATININE 1.4 mg/dL (0.6-1.0); GLOMERULAR FILTRATION RATE 36; GLUCOSE 95 mg/dL (70-100); POTASSIUM 4.5 mEq/L (3.5-5.2); SODIUM 137 mEq/L (134-144); TOTAL PROTEIN 5.2 g/dL (6.3-8.2)
[2017-04-30] MEDS ORDERED: CARVEDILOL 6.25 MG TAB PO SCH ×2 (08:00)
[2017-04-30] MEDS: THYROID 60 MG TAB PO SCH (08:51)
[2017-04-30] MEDS: CARVEDILOL 6.25 MG TAB PO SCH ×2 (08:54→18:19)
--- NOTE | 2017-04-30 09:20 | WOCRNPDOC ---
WOCRN Advanced Assessment Note - Skin Integrity Problem, Advanced Assess Bilateral Heel Dressing Type: Open to Air Site Measurement - Head-to-Toe Length X Width X Depth (cm): 2x0.2xunknown depth Skin Integrity Problem Comment: Patient with fissures in bilateral heels and hyperkeratosis. Clean feet with foaming cleanser and water and apply atractain cream. Wound care will sign off.
[2017-04-30] MEDS: ENOXAPARIN 30 MG/0.3 ML SYR SC SCH (10:04)
--- NOTE | 2017-04-30 10:26 | HOSPPROG ---
Hospitalist Progress Note Assessment/Plan: #Persistent atrial fibrillation with RVR: suspect driven by cellulitis. Cards to eval, echo pending. Has declined anticoagulation in past #RLL cellulitis: procalcitonin 4, WBC was 12. She is very hesitant about abx #Elevated dimer: denies pleuritic symptoms. Negative U/S for DVT. No CTA with contrast-allergy. Can consider V/Q, but suspect cellulitis driving tachycardia. TTE pending #h/o left atrial thrombus: has refused anticoagulation #Chronic systolic HF: no e/o volume overload. TTE pending #MVR #CKD: renally-dose meds #Leukocytosis: improved #Leg cramping: cont home Mag #SCDs #Disp: cont inpatient admission for a fib, cellulitis, requiring telemetry or IV abx Subjective: no CP or SOB. No fevers Objective: Vital Signs Temp Pulse Resp BP Pulse Ox 37.0 C 65 18 117/62 96 04/30/17 07:41 04/30/17 07:41 04/30/17 07:41 04/30/17 07:41 04/30/17 07:41 Microbiology 04/30/17 00:19 Respiratory Panel (PCR) - Final Nasal, Sinus - Swab No Organism Detected Laboratory Results 04/30/17 03:45 04/30/17 03:45 04/29/17 04/30/17 05/01/17 05:59 05:59 05:59 Intake Total 150 Balance 150 - Physical Exam Constitutional: no apparent distress Eyes: PERRL Ears, Nose, Mouth, Throat: moist mucous membranes Cardiovascular: regular rate and rhythym Respiratory: no respiratory distress Gastrointestinal: normoactive bowel sounds Genitourinary: No hines in urethra Skin: warm, other (RLE with erythema, warmth up to knee. Cracked lesions, no purulence) Musculoskeletal: full muscle strength Neurologic: AAOx3 Psychiatric: interacting appropriately ICD10 Worksheet Patient Problems: Problems Problem Status Onset CHF exacerbation Acute Malaise Acute Wide-complex tachycardia Acute Transient ischemic attack Active Atrial fibrillation Acute CHF (congestive heart failure) Acute Chronic Disease Mgmt/Transitional Care Acute
[2017-04-30] MEDS ORDERED: MAGNESIUM OXIDE 400 MG TAB PO SCH ×3 (10:28→21:00)
[2017-04-30] MEDS ORDERED: MAGNESIUM OXIDE 400 MG TAB PO PRN (11:15)
[2017-04-30] MEDS ORDERED: DILTIAZEM 30 MG TAB PO SCH (12:00)
--- NOTE | 2017-04-30 13:58 | PDMN ---
Medical Necessity Medical necessity: est los>2mn for possible bacteremia, suspected LE cellulitis , afib/flutter w/ RVR, elevated D dimer; admit for IV abx, card consult; comorbid chronic systolic HF, CDK, MVR, hx L atrial thrombus; per order and H&P 04/29/17
--- NOTE | 2017-04-30 14:31 | ECHO ---
[email or web address] [address] [address] Main: [phone] Fax: Transthoracic Echocardiogram Name: NEREIDA VILLAVICENCIO MR#: [id number] Study Date: 04/30/2017 Study Time: 10:11 AM Date of : 1935 Age: 81 year(s) Height: 162.6 cm (64 in.) Weight: 54.43 kg (120 lb.) BSA: 1.57 m2 Gender: Female Examination: Echo Indication: A fib/cardiomyopathy, h/o LA thrombus Image Quality: Contrast: Requested by: Elizabeth Somers BP: 117 mmHg/62 mmHg Heart Rate: Rhythm: Indication: A fib/cardiomyopathy, h/o LA thrombus Procedure Staff Personal Attendant: Maren Patiño Physician: Tejinder Gotti Requesting Provider: Conclusions: Normal size left ventricle. Mild concentric LV hypertrophy. LV septal motion is consistent with conduction abnormality. There is mild global hypokinesis of the left ventricle.. Mildly dilated right ventricle. The right ventricular systolic function is mildly reduced. Mild hypokinesis of the RV.. The left atrium is severely dilated. The right atrium is severely dilated. Mild mitral valve regurgitation is present. An annuloplasty ring is noted in the mitral valve position. MV max PG is 13mmHG. MV mean PG is 6mmHG.. Mild tricuspid regurgitation is present. There is a tricuspid valve ring. TV max PG is 7mmHG. TV mean PG is 3mmHG.. The pulmonic valve is normal in appearance. Trivial pulmonic valve regurgitation. The IVC is dilated. Trivial pericardial effusion. There appears to be a thrombus in the pericardial space viewed in a parasternal long axis near the inferolateral wall.. Previous echo stated an echogenic mass in the left atrium associated with the lateral wall.. No sig change from previous. Measurements: Chambers Valvular Assessment AV/MV Valvular Assessment TV/PV Normal Normal Normal Name Value Range Name Value Range Name Value Range Ao Cassidy (MM): 3.5 cm (2.2 cm-3.7 AV meanP mmHg ( - ) TV Vmax: 1.35 m/s (0.3 m/s-0.7 cm) MV meanP mmHg ( - ) m/s) Patient: NEREIDA VILLAVICENCIO Study Date: 04/30/2017 Page 1 of 2 10:11 AM IVSd (2D): 1.2 cm (0.6 cm-1.1 TV Vmean: 0.74 m/s ( - ) cm) TV PGmax: 7 mmHg ( - ) LVDd (2D): 5.2 cm (3.9 cm-5.3 TV PGmean: 3 mmHg ( - ) cm) TV VTI: 24.40 cm ( - ) LVDs (2D): 4.3 cm (2.1 cm-4 TR Vmax: 2.81 mm/s ( - ) cm) TR PGmax: 32 mmHg ( - ) LVPWd (2D): 1.2 cm ( - ) syst. PAP: 42 mmHg ( - ) LVEF (MOD4): 43 % (>=55 %) Continued Measurements: Chambers Valvular Assessment AV/MV Valvular Assessment TV/PV Name Value Name Value Name Value LADs: 6.4 cm MV VTI: 34.60 cm CVP (est.): 10 mmHg LADs Lon.5 cm LA Area: 38.2 cm2 Findings: Left Ventricle: Normal size left ventricle. Mild concentric LV hypertrophy. LV septal motion is consistent with conduction abnormality. There is mild global hypokinesis of the left ventricle.. Right Ventricle: Mildly dilated right ventricle. The right ventricular systolic function is mildly reduced. Mild hypokinesis of the RV.. Left Atrium: The left atrium is severely dilated. Right Atrium: The right atrium is severely dilated. Mitral Valve: Mild mitral valve regurgitation is present. An annuloplasty ring is noted in the mitral valve position. MV max PG is 13mmHG. MV mean PG is 6mmHG.. Tricuspid Valve: Mild tricuspid regurgitation is present. The pulmonary artery pressure is mildly increased. There is a tricuspid valve ring. TV max PG is 7mmHG. TV mean PG is 3mmHG.. Pulmonic Valve: The pulmonic valve is normal in appearance. Trivial pulmonic valve regurgitation. IVC: The IVC is dilated. Pericardium: Trivial pericardial effusion. There appears to be a thrombus in the pericardial space viewed in a parasternal long axis near the inferolateral wall.. Exam Comments: Previous echo stated an echogenic mass in the left atrium associated with the lateral wall.. (No Signature Object) Patient: NEREIDA VILLAVICENCIO Study Date: 04/30/2017 Page 2 of 2 10:11 AM [id number]
--- NOTE | 2017-04-30 15:12 | ASMTCASEMG ---
Living Arrangements What is your living Answers: Alone arrangement? Who do you live with? Type Of Residence What kind of residence do Answers: House you live in? Discharge Plan Comments Coordination Status Comments Notes: Pt is a 81 y/o female admitted for Afib, malaise and hx of hypoxia and chills. Therapies have been ordered. PT is recommending home vs home w/ HC. Awaiting recommendation from OT. CM met w/ pt for dispo planning. Pt is uncertain if she wants HC. Pt reports that she will think about CM will check in tomorrow. Plan: TBD; possibly HC Date Signed: 04/30/2017 03:12 PM Electronically Signed By:VINICIO Johnson
[2017-04-30] MEDS: DILTIAZEM CD 120 MG CAP PO SCH (17:34)
--- NOTE | 2017-04-30 17:41 | PDCARPN ---
Cardiology Progress Note Chief Complaint: Tachycardia Assessment/Plan: Assessment: Admitted due to chills, body aches, and malaise. Antibiotics were ordered and she refused to take them. She was found to have a deep, linear fissure lesions on her right heel. Wound Care was called to evaluate. Likely she has an infection and will benefit from the antibiotic therapy. After discussing this with her at length today, she agreed to take the antibiotics, and eventually during the day she has been compliant with recommendations. Hx Atrial Fibrillation with rapid ventricular rate. She has been managed on Coreg 6.25 BID and has done fairly well prior to hospitalization. She is followed closely by Gus Longoria MD, with T[facility]E 2 months ago. She has continued to have episodes of rapid ventricular rates. She is very cautious about taking Medications, but has been compliant. She REFUSES to take anticoagulation. On arrival to hospital she had a rapid rate and was given Diltiazem IVP. Her rates have remained in the 110-120's, which is not unusual for her. She did agree to take oral Diltiazem which was started low dose. She has tolerated that well and agrees to increase the dose. Her SBP is low at 102. Will switch her to Long Acting Diltiazem 120 mg QD. She is back on Coreg which should help manage her HR. She has been up ambulating in the [place] with oxygen. She is doing much better by this evening. Plan: Continue to follow along. Will adjust rate control medications as indicated. 04/30/17 17:23 Subjective: Feeling better this afternoon. Less anxious now. Reviewed/Discussed With: hospitalist, multidisciplinary team Time Spent With Patient: 30 minutes Objective: Vital Signs (8 Hrs) Temp Pulse Resp BP Pulse Ox 04/30/17 16:00 37.3 C 128 H 19 107/70 91 L 04/30/17 14:40 125 H 91 L 04/30/17 12:00 37.5 C 113 H 16 101/76 90 L Intake/Output (24 Hrs) 04/29/17 04/30/17 05/01/17 05:59 05:59 05:59 Intake Total 150 Balance 150 Intake: Oral (ml) 150 Other: Weight 56.6 kg Number of Voids Toilet 2 Result Diagrams: 04/30/17 03:45 04/30/17 03:45 - Physical Exam Constitutional: no apparent distress Cardiovascular: no murmurs, no rubs, other (Rapid Rate 100-120) Peripheral Pulses: 2+: carotid (R), carotid (L), dorsalis-pedis (R), dorsalis- pedis (L) Respiratory: clear to auscultate bilat, no crackles, no wheezes Skin: warm, no edema Neurologic: AAOx3 Psychiatric: cooperative, interactive ICD10 Worksheet Patient Problems: Problems Problem Status Onset Transient ischemic attack Active CHF (congestive heart failure) Acute Atrial fibrillation Acute Chronic Disease Mgmt/Transitional Care Acute CHF exacerbation Acute Malaise Acute Wide-complex tachycardia Acute
[2017-04-30] MEDS: MELATONIN 3 MG TAB PO SCH (20:41)
[2017-04-30 23:06] VITALS: RESP 16
[2017-05-01 04:13] LABS: HEMATOCRIT 30.3 % (38.0-47.0); HEMOGLOBIN 10.2 g/dL (12.6-16.3); MEAN CELL HEMOGLOBIN 32.7 pg (27.9-34.1); MEAN CELL HEMOGLOBIN CONCENTR. 33.7 g/dL (32.4-36.7); MEAN CELL VOLUME 97.1 fL (81.5-99.8); RED BLOOD CELL COUNT 3.12 10^6/uL (4.18-5.33); RED CELL DISTRIBUTION WIDTH 13.7 % (11.5-15.2)
[2017-05-01 04:27] LABS: ANION GAP 12 mEq/L (8-16); CALCIUM 8.1 mg/dL (8.5-10.4); CARBON DIOXIDE 19 mEq/l (22-31); CHLORIDE 110 mEq/L (97-110); CREATININE 1.4 mg/dL (0.6-1.0); GLOMERULAR FILTRATION RATE 36; GLUCOSE 97 mg/dL (70-100); POTASSIUM 4.4 mEq/L (3.5-5.2); SODIUM 141 mEq/L (134-144)
[2017-05-01] MEDS: DILTIAZEM CD 120 MG CAP PO SCH (08:34)
--- NOTE | 2017-05-01 08:36 | HOSPPROG ---
Hospitalist Progress Note Assessment/Plan: #Persistent atrial fibrillation with RVR: suspect driven by cellulitis. Cards evaluated and started on Dilt. Has declined anticoagulation in past. Echo with mild hypokinesis, mild RV dysfunction #RLL cellulitis: procalcitonin 4, WBC was 12. She is very hesitant about abx #Elevated dimer: denies pleuritic symptoms. Negative U/S for DVT. No CTA with contrast-allergy. Can consider V/Q, but suspect cellulitis driving tachycardia. TTE pending #h/o left atrial thrombus: has refused anticoagulation #Chronic systolic HF: no e/o volume overload. TTE pending #MVR #CKD: renally-dose meds #Leukocytosis: improved #Leg cramping: cont home Mag #SCDs #Disp: DC today Subjective: no dizziness. Walking the halls with PT Objective: Vital Signs Temp Pulse Resp BP Pulse Ox 37.1 C 113 H 16 99/70 L 94 05/01/17 07:35 05/01/17 07:53 05/01/17 07:35 05/01/17 07:35 05/01/17 07:35 Microbiology 04/30/17 00:19 Respiratory Panel (PCR) - Final Nasal, Sinus - Swab No Organism Detected Laboratory Results 05/01/17 03:24 05/01/17 03:24 04/30/17 05/01/17 05/02/17 05:59 05:59 05:59 Intake Total 150 1450 Balance 150 1450 - Physical Exam Constitutional: no apparent distress Eyes: PERRL Ears, Nose, Mouth, Throat: moist mucous membranes Cardiovascular: irregularly irregular, edema (+1 LE edema) Gastrointestinal: normoactive bowel sounds Genitourinary: no bladder fullness Skin: warm, other (less warmth and redness over legs. Cracked feet) Musculoskeletal: full muscle strength Neurologic: AAOx3 Psychiatric: interacting appropriately ICD10 Worksheet Patient Problems: Problems Problem Status Onset Transient ischemic attack Active Atrial fibrillation Acute CHF (congestive heart failure) Acute CHF exacerbation Acute Chronic Disease Mgmt/Transitional Care Acute Malaise Acute Wide-complex tachycardia Acute
[2017-05-01] MEDS: ENOXAPARIN 30 MG/0.3 ML SYR SC SCH (08:38)
[2017-05-01] MEDS: CARVEDILOL 6.25 MG TAB PO SCH (08:38)
[2017-05-01] MEDS ORDERED: CARVEDILOL 6.25 MG TAB PO SCH (09:15)
[2017-05-01] MEDS: THYROID 60 MG TAB PO SCH (09:53)
--- NOTE | 2017-05-01 11:05 | PDCARPN ---
Cardiology Progress Note Assessment/Plan: Assessment: Admitted due to chills, body aches, and malaise. Antibiotics were ordered and she refused to take them. She was found to have a deep, linear fissure lesions on her right heel. Wound Care was called to evaluate. Likely she has an infection and will benefit from the antibiotic therapy. After discussing this with her at length today, she agreed to take the antibiotics, and eventually during the day she has been compliant with recommendations. Hx Atrial Fibrillation with rapid ventricular rate. She has been managed on Coreg 6.25 BID and has done fairly well prior to hospitalization. She is followed closely by Gus Longoria MD, with TAMMIE 2 months ago. She has continued to have episodes of rapid ventricular rates. She is very cautious about taking Medications, but has been compliant. She REFUSES to take anticoagulation. On arrival to hospital she had a rapid rate and was given Diltiazem IVP. Her rates have remained in the 110-120's, which is not unusual for her. She did agree to take oral Diltiazem which was started low dose. She has tolerated that well and agrees to increase the dose. Her SBP is low at 102. Will switch her to Long Acting Diltiazem 120 mg QD. She is back on Coreg which should help manage her HR. She has been up ambulating in the [place] with oxygen. She is doing much better by this evening. Plan: Continue to follow along. Will adjust rate control medications as indicated. 04/30/17 17:23 05/01/17 11:01 Tolerating the Coreg and Diltiazem well. Her rates at rest 105, with ambulation 130's. She is asymptomatic, with no SOB, no lightheadedness, and no chest pain. She is very delicate and has chronic skin itching. She uses Bulgarian Herbs to help the itch. Visiting with Dr Olmedo, Hospitalist about LOS. Will visit with her Primary Dr, Gus Longoria MD about elevated rate . She tends to run elevated. She would like to DC. Subjective: I feel good other than the itchy skin. Would like to go home. Objective: Vital Signs (8 Hrs) Temp Pulse Resp BP Pulse Ox 05/01/17 08:34 105 H 110/68 05/01/17 07:53 113 H 05/01/17 07:35 37.1 C 126 H 16 99/70 L 94 05/01/17 04:00 37.1 C 114 H 16 99/70 L 90 L Intake/Output (24 Hrs) 04/30/17 05/01/17 05/02/17 05:59 05:59 05:59 Intake Total 150 1450 Balance 150 1450 Intake: Oral (ml) 150 1450 Other: Weight 56.6 kg 90.6 kg Intake Quantity Yes Sufficient Number of Voids Toilet 2 1 1 Result Diagrams: 05/01/17 03:24 05/01/17 03:24 - Physical Exam Constitutional: no apparent distress Cardiovascular: no murmurs, no rubs, irregularly irregular Peripheral Pulses: 2+: dorsalis-pedis (R), dorsalis-pedis (L) Respiratory: clear to auscultate bilat, no crackles, no wheezes Skin: warm, no edema Neurologic: AAOx3 Psychiatric: cooperative, interactive ICD10 Worksheet Patient Problems: Problems Problem Status Onset Transient ischemic attack Active CHF (congestive heart failure) Acute Atrial fibrillation Acute Chronic Disease Mgmt/Transitional Care Acute CHF exacerbation Acute Malaise Acute Wide-complex tachycardia Acute
--- NOTE | 2017-05-01 11:26 | ASMTCMCOM ---
CM Note CM Note Notes: CM met w/ pt for dispo planning. Pt is still uncertain if she would want HC at this time. Pt would like CM to check in at time of d/c to re-assess. CM to follow. Plan: TBD HC but most likely will be independent Date Signed: 05/01/2017 11:26 AM Electronically Signed By:VINICIO Johnson
--- NOTE | 2017-05-01 11:49 | PDIAF ---
- Diagnosis Diagnosis: Atrial fibrillation Code Status: Full Code - Medication Management Discharge Medications: Medications to Continue on Transfer Ascorbic Acid [Vitamin C 500 mg (*)] 500 mg PO TID 12/17/15 [Last Taken 04/29/17 ] Herbals/Supplements -Info Only 1 ea PO DAILY 12/17/15 [Last Taken 04/29/17] Calcitriol [Calcitriol (*)] 0.25 mcg PO WESA 08/31/16 [Last Taken 04/25/17] Carvedilol [Coreg (*)] 6.25 mg PO BIDMEAL 08/31/16 [Last Taken 04/29/17] Melatonin [Melatonin 3 MG (*)] 3 mg PO HS 08/31/16 [Last Taken 04/28/17] Magnesium Oxide [Magnesium Oxide 400 mg (*)] 400 mg PO HS 01/22/17 [Last Taken 04/28/17] Vitamin B Complex [B Complex] 1 each PO DAILY 01/22/17 [Last Taken Unknown] Thyroid [Bolt Thyroid 60 MG (*)] 60 mg PO DAILY10 04/29/17 [Last Taken ] Discharge Medications: Refer to the Discharge Home Medication list for PRN reason. - Orders Services needed: Home Care, Physical Therapy Home Care Face to Face: I certify that this patient was under my care and that I had the required [id number] encounter meeting the encounter requirements on the discharge day. My findings support the fact that the patient is homebound as defined in Home Care Face to Face Continued: CMS Chapter 7 Medicare Benefits Manual 30.1.1 , The condition of the patient is such that there exists a normal inability to leave home and consequently, leaving home would require a considerable and taxing effort. Diet Recommendation: no restrictions on diet Diet Texture: Regular Texture Diet - Follow Up Care Current Providers and Referrals: Shiloh Gotti MD [Primary Care Provider] - As per Instructions
[2017-05-01 12:04] VITALS: BP 96/51; PULSE 55; TEMP 97.3; O2SAT 96
--- NOTE | 2017-05-01 12:23 | GDS ---
[f rep st] DISCHARGE SUMMARY DISCHARGE DIAGNOSES: 1. Chronic persistent atrial fibrillation with rapid ventricular rate. 2. Lower extremity cellulitis. 3. Hypothyroidism. 4. Chronic kidney disease. 5. History of a left atrial thrombus, but refuses anticoagulation. 6. Chronic systolic heart failure, ejection fraction of 45%. 7. Cardiomyopathy. 8. Mitral valve regurgitation. HISTORY OF PRESENT ILLNESS: An 81-year-old female with history of chronic atrial fibrillation, CKD, presented to the ER with shaking chills. The first episode occurred 3 days prior to admission when she felt very chilled after a shower. The following day, she developed chills again and canceled her activities like meditation. She denies fevers or upper respiratory symptoms including runny nose or cough. She did feel a bit short of breath with shaking episodes. No pleuritic chest pain. No abdominal pain, nausea, vomiting, or diarrhea. No dysuria. She does have cracks on her soles of her feet. She has noted some increased redness in her legs. HOSPITAL COURSE BY PROBLEM: 1. Permanent atrial fibrillation with RVR. driven by acute cellulitis. She is well known to Cardiology and has refused anticoagulation in the past. She also refuses aspirin. Evaluated by Cardiology who added diltiazem, which has improved her heart rate here. She had an echocardiogram that showed some mild RV dysfunction. But no growth overload. She did have an elevated D-dimer, but she did not have pleuritic chest pain and, with negative ultrasounds, will not pursue a CTA given her history of iodine allergy. 2. History of left atrial thrombus: She refuses anticoagulation and acknowledges the risk of embolic event. 3. Compensated systolic heart failure: Last EF was 30%. Can continue home medications. 4. CKD at baseline: Renally dose medications. 5. Mitral valve regurgitation: Again, not volume up. Continue home medications. 6. Lower extremity cellulitis: Likely secondary to cracked feet. No evidence of purulence or abscess. She was treated with IV Ancef with improvement; Keflex at [place]. 7. Deconditioning: She is unstable on her feet. Was evaluated by PT. Will have home health PT at home with a walker. DISPOSITION: Patient is stable for discharge home with walker and PT NEW MEDICATIONS: 1. Diltiazem CD 120 mg daily. 2. Keflex 500 mg four times daily for 5 days. FOLLOWUP: 1. Cardiology. 2. Primary care physician. /[id number]/MODL MTDD
--- NOTE | 2017-05-01 16:49 | ASDISCHSUM ---
Discharge Information Plan Status:Home with Home Health Medically Cleared to Leave:04/30/2017 Discharge Date:05/01/2017 02:13 PM CM D/C Disposition:Home, Routine, Self-Care ADT D/C Disposition:Home, Routine, Self-Care Projected Discharge Date:05/01/2017 12:00 AM Transportation at D/C: Discharge Delay Reason: Follow-Up Date:05/01/2017 12:00 AM Discharge Slot: Final Diagnosis: Placement Information Referral Type:*Home Health Care Services Referral ID:[id number] Provider [facility] [address] [address] Address 2: City:[place] Selection Factors: State:[place] Patient Contact Information Contact Name:SALLY Relationship:Son Address: Work Phone: City:[facility] Alternate Phone: [facility]/Zip Code:[place] Email: Financial Information Financial Class: Primary Plan Desc:MEDICARE INPATIENT Primary Plan Number:[id number] Secondary Plan Desc:[employer]/M[employer] SUPPLEMENT Secondary Plan Number:[id number] Assessment Information [facility] Initial CM Assessment Living Arrangements What is your living Answers: Alone arrangement? Who do you live with? Type Of Residence What kind of residence do Answers: House you live in? Discharge Plan Comments Coordination Status Comments Notes: Pt is a 81 y/o female admitted for Afib, malaise and hx of hypoxia and chills. Therapies have been ordered. PT is recommending home vs home w/ HC. Awaiting recommendation from OT. CM met w/ pt for dispo planning. Pt is uncertain if she wants HC. Pt reports that she will think about CM will check in tomorrow. Plan: TBD; possibly HC Date Signed: 04/30/2017 03:12 PM Electronically Signed By:VINICIO Johnson [facility] Progress Note CM Note CM Note Notes: CM met w/ pt for dispo planning. Pt is still uncertain if she would want HC at this time. Pt would like CM to check in at time of d/c to re-assess. CM to follow. Plan: TBD HC but most likely will be independent Date Signed: 05/01/2017 11:26 AM Electronically Signed By:VINICIO Johnson Case Management Discharge Plan Note Case Management Discharge Discharge Order Complete? Answers: Yes Patient to Obtain Answers: via Family Medications Transportation Arranged Answers: Family/Friends EMTALA Complete Answers: No Case Management Transport Answers: Yes Form Complete Faxed Final Orders Answers: Yes Agency/Facility Transfer Answers: Yes Report Printed & Faxed to Receiving Agency Family Notified Answers: No Discharge Comments Notes: Pt is being discharged today. Pt is amendable to having HC, PT through [facility]. CM made referral with [facility] and they are able to accept. CM provided RN w/ phone number to give report to [facility]. CM available for changes. Plan: ISI TRINH Date Signed: 05/01/2017 12:19 PM Electronically Signed By:VINICIO Johnson Intervention Information Intervention Type:*Incorrect Registration Date of Service:04/30/2017 01:45 PM Patient Type:Observation Staff Member:ISI Glez Susan Hours: Discipline: Severity: Comment:
== END 2017-05-01 14:13 | disposition home or self-care (01) | DRG 603 ==
LOC: OBSVTOIN 19:59 → F2W 21:23
PROVIDERS: ADMIT Hospitalist; ATTEND Hospitalist
DX: L03.115 Cellulitis of right lower limb (principal); I50.22 Chronic systolic (congestive) heart failure; I42.9 Cardiomyopathy, unspecified; I48.2 Chronic atrial fibrillation; E03.9 Hypothyroidism, unspecified; N18.9 Chronic kidney disease, unspecified; I34.0 Nonrheumatic mitral (valve) insufficiency; Z86.718 Personal history of other venous thrombosis and embolism; Z96.643 Presence of artificial hip joint, bilateral; Z88.0 Allergy status to penicillin
CPT/HCPCS: 97116-GP; 97161-GP; 97165-GO; 97530-GO; 97535-GO; G8978-GP-CI; G8979-GP-CI; G8987-GO-CI; G8988-GO-CH; J0282; J0690

== ENCOUNTER 2017-05-21 16:15 | Inpatient (IN) | payer OTHER, MEDICARE ==
[2017-05-21] MEDS ORDERED: methylPREDNISolone SOD SUCC 125 MG/2 ML VIAL IVP ONE (16:48)
--- NOTE | 2017-05-21 16:52 | EDPHY ---
H & P Time Seen by Provider: 05/21/17 16:36 HPI/ROS: CHIEF COMPLAINT: Rash and leg swelling HISTORY OF PRESENT ILLNESS: Patient is been getting symptomatic for the last week. She has developed a full body rash which is itchy and worsening leg swelling. This is associated with a 15 lb weight gain and a lot of pruritus. This is not associated with shortness of breath or angioedema. Over last 2 days her legs of started weeping and oozing because they are so swollen. She has been using alternative Portuguese medical therapies and this time they are not helping. Symptoms severe. Difficulty walking. No fever or chills. REVIEW OF SYSTEMS: Eye: no change in vision ENT: no sore throat Cardiac: no chest pain or syncope Pulmonary: no cough or SOB Abdomen: no vomiting, diarrhea, abdominal pain Musculoskeletal: Bilateral leg swelling is noted above. Skin: HPI Neuro: no headache Constitutional: no fever : no urinary symptoms A comprehensive 10 point review of systems is otherwise negative aside from elements mentioned in the history of present illness. PAST MEDICAL HISTORY: Includes CHF, bilateral total hip surgery, hypothyroid, AFib, chronic renal insufficiency. History and physical dated 04/29/2017 personally reviewed. Includes left atrial thrombus, chronic systolic heart failure with EF of 45%. Mitral valve regurgitation. Eczema. Social history: Nonsmoker Heart rate 64, O2 sat 92-96% on room air. General Appearance: Alert and conversant, cooperative. Eyes: No scleral icterus. ENT, Mouth: Normal mucous membranes. No angioedema, no stridor. Respiratory: Normal respiratory effort, breath sounds equal, lungs are clear to auscultation. No rales. Cardiovascular: Regular rate and rhythm. Gastrointestinal: Abdomen is soft and non tender. Neurological: Alert, normally conversant. Normal movement and sensation in extremities. Skin: Patient has a slightly raised red rash which is everywhere in her body including arms legs and trunk. She has some erythema of both lower legs which is symmetric and very slight oozing but it is not warm to the touch and not tender to palpation. Slightly indurated. No fluctuance. No eschar. Not purpuric. Musculoskeletal: Bilateral 3+ peripheral edema. Symmetric. Non tender. Psychiatric: Not agitated. Emergency Department course/MDM: Clinically I think it is unlikely that this patient has cellulitis or DVT or acute CHF. She does have worsening lower extremity edema and a severe itchy rash which is not responsive to outpatient therapy. IV Solu-Medrol 80 mg and IV Benadryl 50 mg. Labs and admission for probable diuresis and further evaluation. Possibly worsening of her chronic heart failure with increasing leg edema and overall weight gain, BNP still elevated. Unlikely to be anaphylaxis or sepsis. 1834: Discussed plan again with the patient, she had refused EKG and chest x- ray because she " had one on April 29. " Feels less itchy at this time. Smoking Status: Never smoked Constitutional: Initial Vital Signs Temperature (C) 36.6 C 05/21/17 16:17 Respiratory Rate 20 05/21/17 16:17 Blood Pressure 151/97 H 05/21/17 16:17 O2 Delivery Mode Room Air Allergies/Adverse Reactions: amoxicillin Allergy (Intermediate, Verified 04/29/17 15:35) Rash Iodinated Contrast- Oral and IV Dye Allergy (Verified 04/29/17 15:35) Penicillins Allergy (Verified 04/29/17 15:35) Rash SEASONAL Allergy (Uncoded 04/29/17 15:35) SNEEZING, RUNNY NOSE Home Medications: Medication Instructions Recorded Ascorbic Acid [Vitamin C 500 mg 500 mg PO TID 12/17/15 (*)] Herbals/Supplements -Info Only 1 ea PO DAILY 12/17/15 Calcitriol [Calcitriol (*)] 0.25 mcg PO WESA 08/31/16 Carvedilol [Coreg (*)] 6.25 mg PO BIDMEAL 08/31/16 Melatonin [Melatonin 3 MG (*)] 3 mg PO HS 08/31/16 Magnesium Oxide [Magnesium Oxide 400 mg PO HS 01/22/17 400 mg (*)] Vitamin B Complex [B Complex] 1 each PO DAILY 01/22/17 Thyroid [[place] Thyroid 60 MG (*)] 60 mg PO DAILY10 04/29/17 Diltiazem Cd [Cardizem ER 120 MG 120 mg PO DAILY #30 cap 05/01/17 (*)] Medical Decision Making - Diagnostics EKG Interpretation: 12-lead EKG interpreted by me; official reading is in trace master. My interpretation is atrial fibrillation rate 65. Intraventricular conduction delay. Differential Diagnosis: Differential for rash considered including but not limited to erythema migrans, erythroderma, urticaria, drug rash, bruising. Consult/Admit Bed Type: [facility] - Data Points Laboratory Results: Laboratory Results 05/21/17 17:05 05/21/17 17:05 05/21/17 17:05 Procalcitonin 0.18 ng/mL H ng/mL (0.02-0.10) Medications Given: Carvedilol (Coreg) 6.25 mg PO BIDMEAL REPLACED BY [facility] Stop: 11/17/17 22:14 Last Admin: 05/21/17 22:40 Dose: 6.25 mg Diphenhydramine HCl (Benadryl) 25 mg PO Q6HRS PRN PRN Reason: Itching Stop: 11/18/17 03:43 Last Admin: 05/22/17 03:54 Dose: 25 mg Magnesium Oxide (Magnesium Oxide) 400 mg PO [facility] Stop: 11/17/17 23:29 Last Admin: 05/21/17 23:25 Dose: Not Given Melatonin (Melatonin) 3 mg PO [facility] Stop: 11/17/17 23:29 Last Admin: 05/21/17 23:24 Dose: Not Given Discontinued Medications Bumetanide (Bumex) 1 mg IVP ONCE ONE Stop: 05/21/17 22:12 Last Admin: 05/21/17 22:40 Dose: 1 mg Diphenhydramine HCl (Benadryl Injection) 50 mg IVP EDNOW ONE Stop: 05/21/17 16:49 Last Admin: 05/21/17 17:05 Dose: 50 mg Magnesium Oxide (Magnesium Oxide) 400 mg PO [facility] Stop: 11/18/17 20:59 Last Admin: 05/21/17 22:40 Dose: 400 mg Melatonin (Melatonin) 3 mg PO [facility] Stop: 11/18/17 20:59 Last Admin: 05/21/17 22:39 Dose: 3 mg Methylprednisolone Sodium Succinate (Solu-Medrol) 80 mg IVP EDNOW ONE Stop: 05/21/17 16:49 Last Admin: 05/21/17 17:04 Dose: 80 mg Departure - Departure Disposition: [facility] Acute Clinical Impression: Skin rash, Leg edema Condition: Good
[2017-05-21 17:17] LABS: PLATELET COUNT 254 10^3/uL (150-400)
--- NOTE | 2017-05-21 18:51 | CPEKG ---
Heart Rate: 65 RR Interval: 923 QRSD Interval: 138 QT Interval: 472 QTC Interval: 491 QRS [place]: 267 T Wave [place]: 78 EKG Severity - ABNORMAL ECG - EKG Impression: ATRIAL FIBRILLATION EKG Impression: NONSPECIFIC IVCD WITH LAD EKG Impression: CONSIDER LEFT VENTRICULAR HYPERTROPHY Electronically Signed By: Augie Pacheco 21-May-2017 18:50:45
[2017-05-21] MEDS ORDERED: ONDANSETRON 4 MG/2 ML VIAL IVP PRN (22:10)
[2017-05-21] MEDS ORDERED: ONDANSETRON DISINTEGRATING 4 MG TAB PO PRN (22:10)
[2017-05-21] MEDS ORDERED: ACETAMINOPHEN 325 MG TAB PO PRN (22:10)
[2017-05-21] MEDS ORDERED: BUMETANIDE 1 MG/4 ML VIAL IVP ONE (22:11)
[2017-05-21] MEDS ORDERED: MAGNESIUM OXIDE 400 MG TAB ONE (22:36)
[2017-05-21] MEDS ORDERED: MELATONIN 3 MG TAB ONE (22:37)
[2017-05-21] MEDS: CARVEDILOL 6.25 MG TAB PO SCH (22:40)
--- NOTE | 2017-05-21 22:45 | GHP ---
[f rep st] HISTORY AND PHYSICAL DATE OF ADMISSION: 05/21/2017 CHIEF COMPLAINT: Lower extremity edema, rash. HISTORY OF PRESENT ILLNESS: This is an 81-year-old female who has a history of CHF, chronic atrial f ibrillation and possible left atrial thrombus as well as chronic kidney disease who was recently hosp italized at the beginning of this month. During that hospitalization, she was thought to have cellul itis and had persistent tachycardia. She states over the last several days she has been having worse aysha lower extremity edema as well as more of an itchy type rash. She states that she gets this rash usually when she gets edema. She has had this before, and there is thought that she might be allerg ic to the sulfa in Lasix. She has been seeing Dr. Agarwal and she has been on an expensive diureti c which does not seem to be helping. A couple days ago, she did take a dose of furosemide. She does have some chills. She cannot feel when her heart rate is high. She is not having any palpitations. No chest pain. She does have some shortness of breath with exertion. REVIEW OF SYSTEMS: A 10-point review of systems was obtained and other than stated was negative. PAST MEDICAL HISTORY: 1. Chronic systolic CHF with EF of 40-45%. 2. Chronic kidney disease with baseline creatinine about 1.4. 3. Left atrial thrombus for which she refused anticoagulation. 4. Mitral valve replacement. 5. Eczema. MEDICATIONS: Reviewed. SOCIAL HISTORY: No smoking or alcohol. FAMILY HISTORY: Reviewed and noncontributory. PHYSICAL EXAM: VITAL SIGNS: Afebrile. Blood pressure is 132/82, heart rate initially was 25, has g one up to 120s. Oxygen saturation is 93% on 2 L. GENERAL: The patient is well developed, in no naheed arent distress. HEENT: Nonicteric sclerae. Extraocular movements intact. Moist mucous membranes. NECK: Supple. No thyromegaly. LUNGS: Decreased breath sounds though clear to auscultation bilate rally. CARDIOVASCULAR: Tachycardic but regular. ABDOMEN: Positive bowel sounds. Soft, nontender, nondistended. No hepatosplenomegaly. EXTREMITIES: 2+ edema with quite bright red but symmetric lo wer extremities with slightly raised red rash on legs and trunk. NEUROLOGIC: Moving all 4 extremiti es equally. PSYCH: Normal affect. LAB: Sodium 139, potassium 4.9, BUN is 22, creatinine 1.0. White count 6. EKG: Shows atrial fibrillation. ASSESSMENT: This is an 81-year-old female presenting with worsening lower extremity edema and rash. PLAN: 1. Acute systolic congestive heart failure exacerbation. I think that the worsening lower extremiti es could be due to heart failure. She has difficulty with diuretics. We will get a little bit more information from her stamping operator in terms of what diuretics have worked or not worked and how allerg ic she may be to loop diuretics. She really did take some furosemide a few days ago. She did receiv e a dose of steroids also this evening. I think I am going to try a little bit of IV Bumex. See if we can get some diuresis. Will try to contact Nephrology in the morning and maybe they can follow al tomas with us. 2. Rash. Again unclear whether this is due to do her loop diuretics. She is also on a lot of [place] se herbal medicines and that may be causing the rash as well. She did receive a dose of IV Solu-Medr ol. Will see how she is in the morning. I am not going to continue this tonight but will see how sebastian varma looks tomorrow. 3. Atrial fibrillation. Her heart rate is actually on the high side currently. Will continue her d iltiazem and Coreg which may need to be titrated up. 4. Chronic kidney disease. Her creatinine is better than it has been before. 5. Rule out lower extremity cellulitis. She did have an elevated procalcitonin last time. I am goi ng to repeat this. She was started on Ancef apparently in the hospital and her lower extremity redne ss had improved. Could consider adding antibiotics if her procalcitonin is positive. /[id number]/MODL
[2017-05-21] MEDS: MELATONIN 3 MG TAB PO SCH (23:24)
[2017-05-21] MEDS: MAGNESIUM OXIDE 400 MG TAB PO SCH (23:25)
[2017-05-22] MEDS ORDERED: diphenhydrAMINE 25 MG CAP PO ONE (03:48)
[2017-05-22] MEDS: diphenhydrAMINE 25 MG CAP PO PRN (03:54)
[2017-05-22] MEDS: THYROID 60 MG TAB PO SCH (08:49)
[2017-05-22] MEDS ORDERED: NS 500 ML IV ONE (09:49)
[2017-05-22] MEDS: DILTIAZEM CD 120 MG CAP PO SCH (11:14)
[2017-05-22] MEDS: ENOXAPARIN 40 MG/0.4 ML SYR SC SCH (11:18)
--- NOTE | 2017-05-22 11:23 | PDMN ---
Medical Necessity Medical necessity: Pt meets IP criteria per MD; est los >2 mn for eval/tx of worsening LE edema & rash possibly r/t acute systolic CHF exacerbation; admit for further workup/monitoring, med management, IV diuresis/steroids, Nephrology consult & therapies; hx CHF, CKD, AFIB, L atrial thrombus & MV replacement; per H&P & order 05/22/17
[2017-05-22] MEDS: CARVEDILOL 6.25 MG TAB PO SCH ×2 (11:28→18:12)
--- NOTE | 2017-05-22 12:53 | HOSPPROG ---
Hospitalist Progress Note Assessment/Plan: This 81-year-old female with history of systolic congestive heart failure and CKD presenting with: # bilateral lower extremity edema likely multifactorial in the setting of heart failure and severe stasis dermatitis with an ID reaction # history of atrial fibrillation # history chronic kidney disease # tachycardia Plan: -I discussed the case with her treating gas meter installer Dr. Hernandes who is in agreement to continue oral steroids. -will provide of 500 cc normal saline bolus and monitor fluid status status Continue inpatient care Subjective: Rash improved after receiving steroids last night. She has less itching. She denies any fevers or chills. She denies any shortness of breath. Objective: Vital Signs Temp Pulse Resp BP Pulse Ox 37.2 C 127 H 18 111/70 94 05/22/17 11:11 05/22/17 11:11 05/22/17 11:11 05/22/17 11:11 05/22/17 11:11 05/21/17 05/22/17 05/23/17 05:59 05:59 05:59 Intake Total 800 200 Output Total 500 Balance 800 -300 - Physical Exam Constitutional: no apparent distress, appears nourished, not in pain Cardiovascular: regular rate and rhythym, no murmur, rub, or gallop, tachycardia Respiratory: no respiratory distress, no rales or rhonchi, clear to auscultation , No reduced air movement Gastrointestinal: normoactive bowel sounds, soft, non-tender abdomen, no palpable masses Skin: other (Exfoliating dermatitis bilateral legs abdomen and chest) ICD10 Worksheet Patient Problems: Problems Problem Status Onset Transient ischemic attack Active CHF (congestive heart failure) Acute Atrial fibrillation Acute Chronic Disease Mgmt/Transitional Care Acute CHF exacerbation Acute Malaise Acute Wide-complex tachycardia Acute Skin rash Acute Leg edema Acute
--- NOTE | 2017-05-22 13:11 | ASMTCASEMG ---
Living Arrangements What is your living Answers: Alone arrangement? Who do you live with? Type Of Residence What kind of residence do Answers: House you live in? Discharge Plan Comments Coordination Status Comments Notes: CM spoke w/ ISI Arreola regarding d/c POC. Pt is a 81 y/o female admitted for skin rash, LE edema and chronic CHF. OT has been ordered and awaiting recommendations. Needs are TBD at this time. CM to follow. Plan: TBD Date Signed: 05/22/2017 01:11 PM Electronically Signed By:VINICIO Johnson
[2017-05-22] MEDS: predniSONE 20 MG TAB PO SCH (14:28)
[2017-05-22] MEDS: MAGNESIUM OXIDE 400 MG TAB PO SCH (20:06)
[2017-05-22] MEDS: MELATONIN 3 MG TAB PO SCH (20:06)
[2017-05-22] MEDS ORDERED: MELATONIN 3 MG TAB PO SCH (21:00)
[2017-05-22] MEDS ORDERED: MAGNESIUM OXIDE 400 MG TAB PO SCH (21:00)
[2017-05-23] MEDS: diphenhydrAMINE 25 MG CAP PO PRN ×2 (02:27→21:25)
[2017-05-23] MEDS: THYROID 60 MG TAB PO SCH (08:46)
[2017-05-23] MEDS: predniSONE 20 MG TAB PO SCH ×2 (08:47→10:32)
[2017-05-23] MEDS: DILTIAZEM CD 120 MG CAP PO SCH ×2 (08:47→10:32)
[2017-05-23] MEDS: ENOXAPARIN 40 MG/0.4 ML SYR SC SCH (08:50)
[2017-05-23] MEDS ORDERED: CALCITRIOL 0.25 MCG CAP PO SCH (09:00)
[2017-05-23 09:01] LABS: PLATELET COUNT 221 10^3/uL (150-400)
[2017-05-23] MEDS ORDERED: NS 500 ML IV SCH (10:00)
[2017-05-23] MEDS: CARVEDILOL 6.25 MG TAB PO SCH ×2 (10:32→18:35)
--- NOTE | 2017-05-23 10:37 | HOSPPROG ---
Hospitalist Progress Note Assessment/Plan: This 81-year-old female with history of systolic congestive heart failure and CKD presenting with: # bilateral lower extremity edema likely multifactorial in the setting of heart failure and severe stasis dermatitis with an ID reaction (improving on oral prednisone) possibly secondary to diuretics # history of atrial fibrillation # history chronic kidney disease # tachycardia (persistent) possibly secondary hypovolemia in the setting of loss from rash vs over diuresis vs iatrogenic hyperthyroids vs afib Plan: -I discussed the case with her treating tube winder Dr. Hernandes who is in agreement to continue oral steroids. -will repeat a 500 cc normal saline bolus to see if this improves her tachycardia -check tsh -ekg Possible dc later today if hr<100 and followup with dermatology next week (Dr. Hernandes is back on ) Continue inpatient care Subjective: rash is better. denies shortness of breath. no chest pain. feels tired Objective: Vital Signs Temp Pulse Resp BP Pulse Ox 36.8 C 128 H 14 106/69 95 05/23/17 09:34 05/23/17 09:34 05/23/17 09:34 05/23/17 09:34 05/23/17 09:34 Laboratory Results 05/23/17 08:40 05/23/17 08:40 05/22/17 05/23/17 05/24/17 05:59 05:59 05:59 Intake Total 800 1350 Output Total 1325 Balance 800 25 gen nad cv tachy S1S2 tele reviewed appears sinus pulm clear no wheezes/rales/ronchi abd soft +bs no guard or rebound ext improving erythema ICD10 Worksheet Patient Problems: Problems Problem Status Onset Transient ischemic attack Active CHF (congestive heart failure) Acute Atrial fibrillation Acute Chronic Disease Mgmt/Transitional Care Acute CHF exacerbation Acute Malaise Acute Wide-complex tachycardia Acute Skin rash Acute Leg edema Acute
--- NOTE | 2017-05-23 15:01 | CPEKG ---
Heart Rate: 135 RR Interval: 444 QRSD Interval: 130 QT Interval: 332 QTC Interval: 498 QRS [place]: -74 T Wave [place]: 102 EKG Severity - ABNORMAL ECG - EKG Impression: ATRIAL FIBRILLATION EKG Impression: NONSPECIFIC IVCD WITH LAD EKG Impression: LEFT VENTRICULAR HYPERTROPHY EKG Impression: ANTERIOR Q WAVES, POSSIBLY DUE TO LVH Electronically Signed By: Kale Garcia 24-May-2017 07:30:55
--- NOTE | 2017-05-23 20:28 | CPEKG ---
Heart Rate: 52 RR Interval: 1154 QRSD Interval: 128 QT Interval: 416 QTC Interval: 387 QRS [place]: -85 T Wave [place]: 253 EKG Severity - ABNORMAL ECG - EKG Impression: ATRIAL FIBRILLATION EKG Impression: NONSPECIFIC IVCD WITH LAD EKG Impression: LEFT VENTRICULAR HYPERTROPHY EKG Impression: DIFFUSE T WAVE ABNORMALITIES Electronically Signed By: Kale Garcia 24-May-2017 07:32:11
[2017-05-23] MEDS: MAGNESIUM OXIDE 400 MG TAB PO SCH (21:25)
[2017-05-23] MEDS: MELATONIN 3 MG TAB PO SCH (21:25)
--- NOTE | 2017-05-23 21:38 | HOSPPROG ---
Hospitalist Progress Note Assessment/Plan: Prolonged service, direct patient care at bedside and [id number] with patient , in addition to the time originally spent on today's encounter by Dr. Richard Hernandez, from 8:40 p.m. until 9:25 p.m. (45 mins), addressing the following: -contacted by nurse at 8:40 p.m. that the patient experienced blurred vision, shortness of breath, chest discomfort, lightheadedness in the setting of heart rate and rhythm changing from 140 beats per minute atrial fibrillation to 53 beats per minute junctional bradycardia, with stable systolic blood pressure -reviewed patient's telemetry, she was in atrial fibrillation/flutter rhythm and then experienced a 3 sec junctional pause before going into a junctional rhythm and/or slow AFib -examined the patient, her heart rhythm is currently irregularly irregular, tachycardic, approximately 110-120 beats per minute, lungs are clear to auscultation except in the bilateral bases whether faint crackles on inspiration , legs demonstrate 1+ bilateral edema, with pitting, visible thinning of the skin with visible veins, she is alert awake oriented x3, conversant, no longer symptomatic from a neurologic or pulmonary standpoint -I suspect that the cause of her symptoms were the 3 sec pause -she is currently receiving dual olga blocking agents, notably carvedilol 6.25 and diltiazem 120, which are likely contributing to her junctional rhythm and her slow AFib when her rate does slow -that being said, the patient was recently taken off of her diltiazem earlier in April due to concerns that it may have been contributing to her lower extremity edema and was not optimally effective in slowing her permanent atrial fibrillation, it was re-initiated with her home medications during this episode of care and its current utility should be called into question (will hold tomorrow morning's dose until she is seen by Cardiology) -her lower extremity edema is also of concern but she has been on numerous diuretics in the past and she believes that some of them have resulted in significant skin reactions, and has been placed on a prednisone burst by her wildfire prevention specialist, and is averse to restarting diuretics at this time -review of her outside records demonstrates that she may have a left atrial thrombus as evidenced by a transthoracic echocardiogram from 04/29/2017, but the patient is highly averse to systemic anticoagulation as she does not like the side effect of bruising, although she has never experienced a major bleeding events -she is currently declining her prophylactic daily dose of Lovenox and she is declining any full systemic anticoagulation -I have counseled the patient that she is high risk for stroke given her atrial fibrillation as well as possible left atrial thrombus and I have encouraged her to reconsider and discuss with tomorrow's cardiology provider -we also agreed to further investigate this evening's symptoms and ensure that her rapid AFib is not a result of or cause of myocardial ischemia, pulmonary embolism, congestive heart failure -chest x-ray demonstrates small effusions, but no substantial volume overload requiring immediate diuresis -D-dimer is significantly elevated, in the setting of her lower extremity edema , will get lower extremity ultrasounds (hold on CT angiogram at this time given her history of chronic kidney disease) -I have consulted with Dr. Amrando Gotti, and Cardiology will consult with this patient in the morning; I would encourage consideration of initiating an anti- arrhythmic w/ her bblocker, for better control of her permanent Afib, since it is likely contributing to her LE edema and she is averse to utilizing diuretics to control the LE edema -patient has very strong beliefs about naturopathic means of addressing all of her issues above, which complicate her care Objective: Vital Signs Temp Pulse Resp BP Pulse Ox 36.8 C 53 L 18 106/56 L 94 05/23/17 20:24 05/23/17 20:24 05/23/17 20:24 05/23/17 20:24 05/23/17 20:24 Laboratory Results 05/23/17 08:40 05/23/17 08:40 05/22/17 05/23/17 05/24/17 05:59 05:59 05:59 Intake Total 800 1350 900 Output Total 1325 800 Balance 800 25 100 ICD10 Worksheet Patient Problems: Problems Problem Status Onset Transient ischemic attack Active CHF (congestive heart failure) Acute Atrial fibrillation Acute Chronic Disease Mgmt/Transitional Care Acute CHF exacerbation Acute Malaise Acute Wide-complex tachycardia Acute Skin rash Acute Leg edema Acute
[2017-05-24] MEDS: diphenhydrAMINE 25 MG CAP PO PRN ×3 (02:16→21:07)
[2017-05-24 04:35] LABS: PLATELET COUNT 238 10^3/uL (150-400)
--- NOTE | 2017-05-24 09:15 | GCON ---
[f rep st] CONSULTATION HISTORY OF PRESENT ILLNESS: The patient is a woman with longstanding atrial fibrillation, who comes into the hospital today with increasing edema in her legs, redness, and some weeping. She has a card iomyopathy, atrial fibrillation, chronic kidney disease, and intermittent history of AFib with rapid ventricular response. She is taken care of by Dr. Agarwal, as well as her primary care doctor and [facility]. She has a history of mitral valve repair and she has had chronic systolic heart failure. She was admitted to the hospital because she could not get into her cardiology appointment the other day. She is 81 years old. She has had cellulitis for a long time and she has had intermittent rapid ventricular responses to he r atrial fibrillation. She was admitted at this point in time because of the increased edema. As I mentioned above, she wanted to see a veterinarian laboratory animal care, but since there were none available, the office to ld her to go to the emergency room, whereupon she was admitted to the hospital for this admission. She feels like she could go home, but she is not sure she wants to go home. She has been taking her medications intermittently and she really likes to do things her own way. She has a history of an ejection fraction in the 40-45% range. Her baseline creatinine is 1.4. She has had left atrial thrombus and she does not want to take full anticoagulation. She has atrial fibr illation and will not take full anticoagulation. She has had a mitral valve replaced. MEDICATIONS: Attached. SOCIAL HISTORY: She lives alone, is quite active and takes care of herself. FAMILY HISTORY: No family history of premature coronary artery disease. No history of unexplained s udden at a young age. REVIEW OF SYSTEMS: 10-point review of systems negative, except as noted in the record. She has very extensive records to review. She has some major problems with rashes. She has rashes which require steroids for her to deal with the rash every time she takes a shower. PHYSICAL EXAMINATION: VITAL SIGNS: Blood pressure 127/62. Her heart rate is 46 now. HEENT: Pupils equal and reactive. Mucous membranes of mouth moist. NECK: Supple. CARDIOVASCULAR: S1, S2. Sof t systolic murmur, left sternal border. No diastolic murmur. No S3, S4. No rubs. PULMONARY: Rhon chi. No rales, wheezing, dullness. ABDOMEN: Soft, nontender, without masses. CVA: No tenderness. EXTREMITIES: She has weeping changes in her lower extremities, but no ulcerations. Her edema has markedly decreased. NEUROLOGIC: Cranial nerves 2-12 show no obvious neuropathy. Her motor and sens ory are impaired. LABORATORY DATA: Her creatinine is going up from 1.0 to 1.3. Her potassium is going up from 4.9 to 6.2. Her sodium is down 139 to 138. Her calcium is staying roughly the same. Her troponins are neg ative. She has BNP of 3400, which is a pretty good number for her usually. Her prolactin level is 0 .18, which is mildly elevated, and TSH is 1.52. She has a sweeping chest x-ray, which shows stable cardiomegaly, small bilateral pleural effusions, m inimal interstitial prominence which could represent mild pulmonary edema. She had a venous extremity study done which shows no DVT. Yesterday her heart rates were often in th e 120s and now they are down to 46. ASSESSMENT: 1. Atrial fibrillation. 2. Status post mitral valve surgery. 3. Systolic heart failure. 4. Chronic peripheral edema. 5. Chronic kidney disease. 6. Hyperkalemia. 7. Bradycardia. 8. She has been on carvedilol and intermittently diltiazem to control her rapid ventricular response . However, she yesterday was going too fast all day long and now today she is too low. She is not g oing to take full anticoagulation and we have discussed that. 9. She understands the risks and the benefits. Her CHADS-VASc score is very high, and she should be on it, but she is not going to do it. 10. The patient picks and chooses what she wants of modern medicine and that is her choice. 11. She understands the risks and options. She has a question of left atrial thrombus and that stil l is not enough to get her to move along on this. She is not going to do anticoagulation. 12. She is not going to do full anticoagulation and she does not normally take aspirin either. 13. I think that watching her fast heart rates and then her low heart rates, she would benefit from a pacemaker so that we can increase her medications to keep her out of the 120-130 range, but we know with a backup pacemaker, she will have a heart rate in the 60s. I would not ablate her AV node at t his point, but rather just try to control her with medications and a pacemaker. 14. She is not going to consider any of this until she sees her own veterinarian laboratory animal care, Dr. Longoria, and that is perfectly fine with me. 15. We might be able to talk to him on Thursday when the weekend schedule is over. I do not have his schedule right yet, so I am not sure when he returns to work. 16. In the meantime, if she wants to take a shower, we will see what her heart rates do, as she is u p and about and moving. We will have to watch her potassium now. She is not on Lasix. She is not o n BRADLEY inhibitors. She is not on spironolactone. She has, however, been diuresing just by lying in b ed and her legs are much better. 17. We will follow her with you. /[id number]/MODL
[2017-05-24] MEDS: THYROID 60 MG TAB PO SCH (10:19)
[2017-05-24] MEDS: CARVEDILOL 6.25 MG TAB PO SCH ×2 (10:20→18:12)
[2017-05-24] MEDS: predniSONE 20 MG TAB PO SCH (10:21)
[2017-05-24] MEDS: ENOXAPARIN 40 MG/0.4 ML SYR SC SCH (10:22)
[2017-05-24] MEDS ORDERED: INSULIN REGULAR HUMAN 100 UNIT/ML IVP ONE (11:49)
[2017-05-24] MEDS ORDERED: SODIUM POLY SULF 15 GM/60 ML BOTTLE PR ONE (11:49)
[2017-05-24] MEDS ORDERED: CALCIUM GLUC 10% 1 GM/10 ML VIAL IVP ONE (11:49)
[2017-05-24] MEDS ORDERED: D50W 25 GM/50 ML SYR IVP ONE (11:49)
[2017-05-24] MEDS ORDERED: D50W 25 GM/50 ML VIAL ONE (12:10)
[2017-05-24] MEDS ORDERED: DIPHENHYDRAMINE CREAM TP PRN (14:35)
[2017-05-24] MEDS ORDERED: EUCERIN LOTION TP PRN (14:36)
--- NOTE | 2017-05-24 15:10 | HOSPPROG ---
Hospitalist Progress Note Assessment/Plan: * Rash - ? 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 Longoria before proceeding * CKD - at baseline * Potassium elevation - no potassium administration here, ? source -improved after IV calcium, insulin/D50, Kayexalate -potassium restricted diet * LA thrombus -anticoagulation refused * MV replacement Subjective: itching, getting more swollen, now up to abdomen Objective: Vital Signs Temp Pulse Resp BP Pulse Ox 36.3 C 49 L 14 129/57 H 91 L 05/24/17 11:56 05/24/17 11:56 05/24/17 11:56 05/24/17 11:56 05/24/17 11:56 Laboratory Results 05/24/17 03:35 05/24/17 13:18 05/23/17 05/24/17 05/25/17 05:59 05:59 05:59 Intake Total 1350 1600 Output Total 1325 800 300 Balance 25 800 -300 CXR - mild pulmonary edema - Physical Exam Constitutional: no apparent distress, appears nourished, not in pain Cardiovascular: regular rate and rhythym, no murmur, rub, or gallop, edema Respiratory: no respiratory distress, no rales or rhonchi, clear to auscultation Gastrointestinal: normoactive bowel sounds, soft, non-tender abdomen, no palpable masses Skin: no rashes or abrasions, no fluctuance, no induration Neurologic: AAOx3, sensation intact bilaterally Psychiatric: interacting appropriately, not anxious, not encephalopathic, thought process linear ICD10 Worksheet Patient Problems: Problems Problem Status Onset Leg edema Acute Skin rash Acute Transient ischemic attack Active Atrial fibrillation Acute CHF (congestive heart failure) Acute CHF exacerbation Acute Chronic Disease Mgmt/Transitional Care Acute Malaise Acute Wide-complex tachycardia Acute
[2017-05-24] MEDS: BUMETANIDE 1 MG/4 ML VIAL IVP SCH ×2 (15:20→21:07)
--- NOTE | 2017-05-24 16:10 | ASMTCMCOM ---
CM Note CM Note Notes: 05/24/2017 Case Management Note Pt has used [facility] in the past. Notified [facility] of admission. Case Management d/c poc: TBD. Awaiting PT eval for guidance in creating d/c poc. Case Management to follow. Date Signed: 05/24/2017 04:10 PM Electronically Signed By:Nanette Lawrence RN
[2017-05-24] MEDS: MELATONIN 3 MG TAB PO SCH (21:07)
[2017-05-24] MEDS: MAGNESIUM OXIDE 400 MG TAB PO SCH (21:07)
[2017-05-24] MEDS: AVEENO LOTION TP SCH (21:08)
[2017-05-25 04:07] LABS: PLATELET COUNT 197 10^3/uL (150-400)
[2017-05-25] MEDS: THYROID 60 MG TAB PO SCH (08:52)
[2017-05-25] MEDS: predniSONE 20 MG TAB PO SCH (08:53)
[2017-05-25] MEDS: BUMETANIDE 1 MG/4 ML VIAL IVP SCH ×2 (08:53→15:27)
[2017-05-25] MEDS: CARVEDILOL 6.25 MG TAB PO SCH ×2 (08:53→18:47)
[2017-05-25] MEDS: DILTIAZEM CD 120 MG CAP PO SCH (08:53)
--- NOTE | 2017-05-25 08:58 | SOAPPROG ---
NAOMI Progress Note Assessment/Plan: Assessment: Plan: 05/25/17 08:56 1. Atrial fibrillation 2. Diastolic heart failure 3. Hypertension 4. Chronic kidney disease She is feeling better today. Her potassium has come down. Creatinine is also come down. We were holding her Lasix. What is going on and she continues to have a rapid ventricular response or atrial fibrillation intermittently I do not think is good for her to keep going in the 130s for extended periods of time. However just on the medicine she is on she has developing Julio arrhythmias as well. My recommendation would be a pacemaker and she will talk to Dr. ALVAREZ about this. She does not want to put in a pacemaker without talking to her own physician which is perfectly acceptable. She and I have also talked about anticoagulation and that something she is not interested in. She should with her chads Vasc score and with her findings definitely be on full anticoagulation she understands this and feels like it is not in her best interest and does not want to do it. We will continue to watch her and talk to her media marketing specialist in the morning. In the meantime we will see she has episodes where her heart rate is lower and right now it is gone back down into the high 70s. All her questions have been answered. Discussed her with her hospitalist. Subjective: She is resting comfortably in bed. She has no chest pain She has no shortness of breath she has no fever chills or cough She has no nausea vomiting No headache No palpitations. Objective: Vital Signs Temp Pulse Resp BP Pulse Ox 36.4 C 72 18 131/73 H 96 05/25/17 04:00 05/25/17 04:00 05/25/17 04:00 05/25/17 04:00 05/25/17 04:00 Laboratory Results 05/25/17 03:32 05/25/17 03:32 05/24/17 05/25/17 05/26/17 05:59 05:59 05:59 Intake Total 1600 Output Total 800 2400 Balance 800 -2400 Selected Entries 05/24/17 05/25/17 05/25/17 20:00 00:00 04:00 Heart Rate 134 H 97 72 Temperature (C) 36.4 C 36.7 C 36.4 C Blood Pressure 124/89 H 144/85 H 131/73 H Laboratory Tests 05/21/17 05/23/1705/23/17 17:05 08:40 20:55 WBC 6.68 Hct 34.8 L Plt Count 254 ESR Potassium BUN Creatinine Glucose NT-Pro-B Natriuret Pep 3570 H TSH 1.520 05/25/17 05/25/17 03:32 03:32 WBC 8.63 Hct 31.5 L Plt Count 197 ESR 10 Potassium 4.1 BUN 38 H Creatinine 1.2 H Glucose 115 H NT-Pro-B Natriuret Pep TSH Physical Exam - Physical Exam General Appearance: alert, no apparent distress Respiratory: rhonchi Cardiac/Chest: tachycardia, systolic murmur, irregularly irregular, No JVD Abdomen: non-tender, soft, No organomegaly Skin: pallor Extremities: No calf tenderness Neuro/Psych: normal mood/affect ICD10 Worksheet Patient Problems: Problems Problem Status Onset Leg edema Acute Skin rash Acute Transient ischemic attack Active Atrial fibrillation Acute CHF (congestive heart failure) Acute CHF exacerbation Acute Chronic Disease Mgmt/Transitional Care Acute Malaise Acute Wide-complex tachycardia Acute
[2017-05-25] MEDS: AVEENO LOTION TP SCH ×2 (09:03→21:42)
[2017-05-25] MEDS: ENOXAPARIN 40 MG/0.4 ML SYR SC SCH (10:12)
--- NOTE | 2017-05-25 15:22 | ASMTCMCOM ---
CM Note CM Note Notes: CM met w/ pt for dispo planning. Therapies are recommending HC at this time. Pt reports that her independence is important to her and she cannot be home bound. Pt reports that she is willing to go to an outpatient physical therapy. CM printed out pt a list of outpatient therapist nearby. Pt reports that she is interested in sally chi at [facility] location. CM provided pt w/ information for the sally chi classes at [facility]. Pt has a consult w/ Dr. Longoria tomorrow for a pacemaker. CM available for d/c needs. Plan: Independent Date Signed: 05/25/2017 03:21 PM Electronically Signed By:VINICIO Johnson
--- NOTE | 2017-05-25 16:01 | HOSPPROG ---
Hospitalist Progress Note Assessment/Plan: * Rash - ? 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 -pacemaker before discharge * CKD - at baseline -suspect cardiorenal * LA thrombus -anticoagulation refused * s/p MV/TV repair Subjective: great diuresis with bumex, feels better Objective: Vital Signs Temp Pulse Resp BP Pulse Ox 36.3 C 134 H 15 112/72 91 L 05/25/17 15:35 05/25/17 15:35 05/25/17 15:35 05/25/17 15:35 05/25/17 15:35 Laboratory Results 05/25/17 03:32 05/25/17 03:32 05/24/17 05/25/17 05/26/17 05:59 05:59 05:59 Intake Total 1600 Output Total 800 2400 1800 Balance 800 -2400 -1800 - Time Spent With Patient Time Spent with Patient: greater than 35 minutes (patient with extensive lengthy questions regarding pacemaker and in depth discussion of risk and benefits was done) Time Spent with Patient: Greater than 35 minutes spent on this patients care, greater than 50% of time spent counseling, educating, and coordinating care regarding the above mentioned plan. - Physical Exam Constitutional: no apparent distress, appears nourished, not in pain Cardiovascular: regular rate and rhythym, no murmur, rub, or gallop, edema ( better) Respiratory: no respiratory distress, no rales or rhonchi, clear to auscultation Skin: no rashes or abrasions, no fluctuance, no induration Neurologic: AAOx3, sensation intact bilaterally Psychiatric: interacting appropriately, not anxious, not encephalopathic, thought process linear ICD10 Worksheet Patient Problems: Problems Problem Status Onset Leg edema Acute Skin rash Acute Transient ischemic attack Active Atrial fibrillation Acute CHF (congestive heart failure) Acute CHF exacerbation Acute Chronic Disease Mgmt/Transitional Care Acute Malaise Acute Wide-complex tachycardia Acute
[2017-05-25] MEDS: MAGNESIUM OXIDE 400 MG TAB PO SCH (21:41)
[2017-05-25] MEDS: diphenhydrAMINE 25 MG CAP PO PRN (21:41)
[2017-05-25] MEDS: MELATONIN 3 MG TAB PO SCH (21:42)
[2017-05-26 04:22] VITALS: RESP 16
[2017-05-26] MEDS: CARVEDILOL 6.25 MG TAB PO SCH (09:53)
[2017-05-26] MEDS: DILTIAZEM CD 120 MG CAP PO SCH (09:54)
[2017-05-26] MEDS: THYROID 60 MG TAB PO SCH (09:54)
[2017-05-26] MEDS: BUMETANIDE 1 MG/4 ML VIAL IVP SCH (09:54)
[2017-05-26] MEDS: AVEENO LOTION TP SCH (09:56)
[2017-05-26] MEDS: ENOXAPARIN 40 MG/0.4 ML SYR SC SCH (10:08)
--- NOTE | 2017-05-26 10:29 | SOAPPROG ---
NAOMI Progress Note Assessment/Plan: Assessment: Plan: 05/25/17 08:56 1. Atrial fibrillation 2. Diastolic heart failure 3. Hypertension 4. Chronic kidney disease She is feeling better today. Her potassium has come down. Creatinine is also come down. We were holding her Lasix. What is going on and she continues to have a rapid ventricular response or atrial fibrillation intermittently I do not think is good for her to keep going in the 130s for extended periods of time. However just on the medicine she is on she has developing Julio arrhythmias as well. My recommendation would be a pacemaker and she will talk to Dr. ALVAREZ about this. She does not want to put in a pacemaker without talking to her own physician which is perfectly acceptable. She and I have also talked about anticoagulation and that something she is not interested in. She should with her chads Vasc score and with her findings definitely be on full anticoagulation she understands this and feels like it is not in her best interest and does not want to do it. We will continue to watch her and talk to her cage shift manager in the morning. In the meantime we will see she has episodes where her heart rate is lower and right now it is gone back down into the high 70s. All her questions have been answered. Discussed her with her hospitalist. Subjective: She is feeling better today She has no chest pain Her legs are markedly better. Her itching has improved. Her skin feels quite good. She is not lightheaded dizzy or having new neurologic symptoms. He has no nausea or vomiting. Does not have fevers or chills. Objective: Vital Signs Temp Pulse Resp BP Pulse Ox 36.8 C 58 L 16 147/68 H 91 L 05/26/17 09:15 05/26/17 09:15 05/26/17 09:15 05/26/17 09:15 05/26/17 09:15 Laboratory Results 05/25/17 03:32 05/26/17 03:44 05/25/17 05/26/17 05/27/17 05:59 05:59 05:59 Intake Total 325 Output Total 2400 2900 400 Balance -8657 -5666 -162 Physical Exam - Physical Exam General Appearance: alert (He [phone]), no apparent distress Neck: full range of motion, supple (Thank you so much) Respiratory: rhonchi Cardiac/Chest: systolic murmur, irregularly irregular Abdomen: non-tender, soft, No organomegaly Skin: mottled, pallor Extremities: No calf tenderness Neuro/Psych: normal mood/affect ICD10 Worksheet Patient Problems: Problems Problem Status Onset Leg edema Acute Skin rash Acute Transient ischemic attack Active Atrial fibrillation Acute CHF (congestive heart failure) Acute CHF exacerbation Acute Chronic Disease Mgmt/Transitional Care Acute Malaise Acute Wide-complex tachycardia Acute
--- NOTE | 2017-05-26 11:08 | PDIAF ---
- Diagnosis Diagnosis: afib with tachy/tatiana syndrome and pauses - Medication Management Discharge Medications: Medications to Continue on Transfer Ascorbic Acid [Vitamin C 500 mg (*)] 500 mg PO TID 12/17/15 [Last Taken 05/21/17 ] Calcitriol [Calcitriol (*)] 0.25 mcg PO WESA 08/31/16 [Last Taken 05/16/17] Carvedilol [Coreg (*)] 6.25 mg PO BIDMEAL 08/31/16 [Last Taken 05/21/17] Melatonin [Melatonin 3 MG (*)] 3 mg PO HS 08/31/16 [Last Taken 05/20/17] Magnesium Oxide [Magnesium Oxide 400 mg (*)] 400 mg PO HS 01/22/17 [Last Taken 05/20/17] Vitamin B Complex [B Complex] 1 each PO DAILY 01/22/17 [Last Taken 05/21/17] Thyroid [[place] Thyroid 60 MG (*)] 60 mg PO DAILY10 04/29/17 [Last Taken ] Diltiazem Cd [Cardizem ER 120 MG (*)] 120 mg PO DAILY #30 cap 05/01/17 [Last Taken Unknown] Bumetanide [Bumex (*)] 1 mg PO BID PRN #60 tab 05/26/17 [Last Taken Unknown] diphenhydrAMINE [Benadryl 25 MG (*)] 25 mg PO Q6 PRN #20 tab 05/26/17 [Last Taken Unknown] Discharge Medications: Refer to the Discharge Home Medication list for PRN reason. - Orders Services needed: Home Care, Registered Nurse, Physical Therapy, Occupational Therapy Home Care Face to Face: I certify that this patient was under my care and that I had the required [id number] encounter meeting the encounter requirements on the discharge day. My findings support the fact that the patient is homebound as defined in Home Care Face to Face Continued: CMS Chapter 7 Medicare Benefits Manual 30.1.1 , The condition of the patient is such that there exists a normal inability to leave home and consequently, leaving home would require a considerable and taxing effort. Diet Recommendation: sodium restricted Weigh Patient: daily Additional: You need a pacemaker - please see Dr. Longoria 1-2 weeks to arrange as outpatient. Return to ER for palpitations, lightheadedness or feelings like you might pass out. Daily weight - take diuretic up to 2 x day if weight is increasing. Okay to take either ethacrynic acid OR bumex. Outpatient referral to vocational horticulture instructor. Simply your herbal regimen to reduce exposure to allergens - Follow Up Care Current Providers and Referrals: Shiloh Gotti MD [Primary Care Provider] - As per Instructions Gus Longoria MD [Medical Doctor] -
[2017-05-26] MEDS ORDERED: ATROPINE SULFATE 1 MG/10 ML SYR IVP PRN (11:13)
[2017-05-26] MEDS ORDERED: OXYCODONE/APAP 5/325 TAB PO PRN (11:13)
[2017-05-26] MEDS ORDERED: ONDANSETRON 4 MG/2 ML VIAL IVP PRN (11:13)
[2017-05-26] MEDS ORDERED: NITROGLYCERIN 0.4 MG BTL SL PRN (11:13)
[2017-05-26 13:17] VITALS: BP 118/54; PULSE 59; TEMP 97.7; O2SAT 92
--- NOTE | 2017-05-26 15:56 | ASDISCHSUM ---
Discharge Information Plan Status:Home with Home Health Medically Cleared to Leave:05/25/2017 Discharge Date:05/26/2017 01:42 PM CM D/C Disposition:Home Health Service ADT D/C Disposition:Home Health Service Projected Discharge Date:05/26/2017 11:00 AM Transportation at D/C:Family Discharge Delay Reason: Follow-Up Date:05/26/2017 11:00 AM Discharge Slot: Final Diagnosis: Placement Information Referral Type:*Home Health Care Services Referral ID:[id number] Provider Name:[facility] [address] [address] Address 2: City:[place] Selection Factors: State:[place] Patient Contact Information Contact Name:SALLY Relationship:Son Address: Work Phone: City:[facility] Alternate Phone: [facility]/Zip Code:[place] Email: Financial Information Financial Class: Primary Plan Desc:MEDICARE INPATIENT Primary Plan Number:[id number] Secondary Plan Desc:[employer]/MDR SUPPLEMENT Secondary Plan Number:[id number] Assessment Information [facility] Initial CM Assessment Living Arrangements What is your living Answers: Alone arrangement? Who do you live with? Type Of Residence What kind of residence do Answers: House you live in? Discharge Plan Comments Coordination Status Comments Notes: CM spoke w/ ISI Arreola regarding d/c POC. Pt is a 81 y/o female admitted for skin rash, LE edema and chronic CHF. OT has been ordered and awaiting recommendations. Needs are TBD at this time. CM to follow. Plan: TBD Date Signed: 05/22/2017 01:11 PM Electronically Signed By:VINICIO Johnson [facility] CM Progress Note CM Note CM Note Notes: 05/24/2017 Case Management Note Pt has used [facility] in the past. Notified [facility] of admission. Case Management d/c poc: TBD. Awaiting PT eval for guidance in creating d/c poc. Case Management to follow. Date Signed: 05/24/2017 04:10 PM Electronically Signed By:Nanette Lawrence RN [facility] CM Progress Note CM Note CM Note Notes: CM met w/ pt for dispo planning. Therapies are recommending HC at this time. Pt reports that her independence is important to her and she cannot be home bound. Pt reports that she is willing to go to an outpatient physical therapy. CM printed out pt a list of outpatient therapist nearby. Pt reports that she is interested in sally chi at [facility] location. CM provided pt w/ information for the sally chi classes at [facility]. Pt has a consult w/ Dr. Longoria tomorrow for a pacemaker. CM available for d/c needs. Plan: Independent Date Signed: 05/25/2017 03:21 PM Electronically Signed By:VINICIO Johnson Case Management Discharge Plan Note Case Management Discharge Discharge Order Complete? Answers: Yes Patient to Obtain Answers: Other Medications Transportation Arranged Answers: Family/Friends Faxed Final Orders Answers: Yes Agency/Facility Transfer Answers: Yes Report Printed & Faxed to Receiving Agency Discharge Comments Notes: 05/26/2017 Case Management Note Met w/pt. Set up home care liaison through [facility]. Discussed at length what home bound status means. Pt agreeable and plans to have neighbor pick up attendant groceries. Confirmed address and phone number. Faxed orders to [facility]. Transitional Care to follow pt after d/c. Date Signed: 05/26/2017 11:38 AM Electronically Signed By:Nanette Lawrence RN [facility] Length of stay for Answers: 4-6 days current admission Acuity / Level of Care Answers: Was the patient admitted to hospital via the emergency department? Yes: Comorbidities - select Answers: Previous myocardial all that apply infarction Moderate or severe liver disease or renal disease Emergency dept visits in Answers: 0 last 6 months Score: 12 Date Signed: 05/26/2017 12:22 PM Electronically Signed By:Nanette Lawrence RN Intervention Information Intervention Type:*Incorrect Registration Date of Service:05/22/2017 11:11 AM Patient Type:Observation Staff Member:ISI Stratton Courtney Hours: Discipline: Severity: Comment: Intervention Type:*IM-Signed Date of Service:05/26/2017 12:44 PM Patient Type:Inpatient Staff Member:Maria Alejandra Melendrez Hours: Discipline: Severity: Comment:
--- NOTE | 2017-05-26 18:45 | GDS ---
[f rep st] DISCHARGE SUMMARY DISCHARGE DIAGNOSES: 1. 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 2. Acute on chronic diastolic congestive heart failure. 3. Rash, suspect Lasix allergy. 4. Chronic kidney disease. Baseline creatinine 1.2. 5. Left atrial thrombus. Anticoagulation refused. 6. Status post mitral and tricuspid valve repair. HISTORY: The patient is an 81-year-old female, well known to Dr. Longoria, who has recently develope d a rash, and there is suspicion that she is allergic to Lasix, although she also takes multiple herb al medications, which may be contributing. Because she was intolerant of Lasix, she was prescribed e thacrynic acid by Dr. Agarwal; however, that has been ineffective as a diuretic with her and she de veloped worsening volume overload. She was admitted to the hospital and found to have 4+ edema, as w ell as an extensive rash. She was empirically given 5 days of prednisone, and her rash improved. I also feel her skin is overly stressed by the chronic edema with lower extremity weeping, and she did do much better after diuresis. She tolerated IV Bumex in the hospital with good diuretic response. The Bumex did not appear to worsen her skin condition. Cardiology recommended she go back to ethacry kendra acid upon hospital discharge, although she was concerned about its ineffectiveness. I also gave her prescription for oral Bumex, which she can take instead of the epicritic acid if it is not workin g. She will monitor closely any signs of worsening rash with Bumex as it is not completely sulfa nathan e. I spoke with Dr. Agarwal and he is not convinced that the Lasix is the culprit, and he thinks i t may be one of her multiple herbal agents contributing. He recommends an outpatient consultation [facility] Allergy/Immunology, and that was recommended. I encouraged her to minimize her herbal supplements as much as she is willing. During this hospitalization, she was noted to have a significant tachy-tatiana syndrome with heart rate s ranging between high 40s and 150. She also one point had a 3-second pause. A pacemaker is clearly indicated. She did not want to proceed until she spoke with her usual weed inspector, Dr. Longoria. According to Dr. Longoria, he has been aware this tachy-tatiana syndrome for a long period of time, and she has declined pacemaker in the past. She is quite asymptomatic with these episodes. He would li ke to see her in the office in 1-2 weeks for further discussion regarding outpatient pacemaker placem ent. At the time of discharge, she is interested in pursuing this. She has been advised regarding r eturning to the emergency room if she has severe symptomatic tachy or bradycardia episodes. She is h opeful that her congestive heart failure will be easier to control once she has a pacemaker and perha ps she can decrease her diuretic requirement. DISCHARGE MEDICATIONS: Please see computerized record for full detailed list. New medications: Bumex 1 mg p.o. twice daily as needed to be taken instead of epicritic acid if it is not working. ADDITIONAL DISCHARGE INSTRUCTIONS: 1. Follow up with Dr. Longoria in 1-2 weeks to arrange outpatient pacemaker. 2. Return to the emergency room for any palpitations, lightheadedness, or feelings like she might pa ss out. 3. Daily weights and diuretic recommended by Cardiology to be taken on an as-needed basis if her mario ght is increasing. 4. She is advised she may take Bumex instead of epicritic acid if it is not effective. 5. Outpatient referral to Allergy/Immunology. 6. Recommendation for simplification of her herbal regimen to reduce exposure to allergens. 7. Home health, PT, VNS arranged. Greater than 30 minutes' time was spent arranging this discharge. Patient was seen and examined by eleazar varma on the day of discharge. /[id number]/MODL
== END 2017-05-26 13:42 | disposition home health service (06) | DRG 293 ==
LOC: F2W 19:40 → OBSVTOIN 22:11
PROVIDERS: ADMIT Internal Medicine; ATTEND Internal Medicine
DX: I50.23 Acute on chronic systolic (congestive) heart failure (principal); I48.2 Chronic atrial fibrillation; I51.3 Intracardiac thrombosis, not elsewhere classified; R21 Rash and other nonspecific skin eruption; I49.5 Sick sinus syndrome; N18.9 Chronic kidney disease, unspecified; E03.9 Hypothyroidism, unspecified
CPT/HCPCS: 96374; 97116-GP; 97161-GP; 97165-GO; 97535-GO; G8978-GP-CI; G8979-GP-CH; G8987-GO-CI; G8988-GO-CI; J0610; J1200; J1650; J1815; J2930

== ENCOUNTER → 2017-10-14 | Outpatient (CLI) | payer OTHER, MEDICARE | LOC: BHFA 13:00 | PROVIDERS: ATTEND Internal Medicine Cardiovascular Disease | DX: I48.2 Chronic atrial fibrillation (principal); I42.9 Cardiomyopathy, unspecified; I50.22 Chronic systolic (congestive) heart failure; Z98.890 Other specified postprocedural states ==

== ENCOUNTER 2017-11-16 17:05 | Inpatient (IN) | payer OTHER, MEDICARE ==
[2017-11-16] MEDS ORDERED: VANCOMYCIN HCL/NORMAL SALINE 250 ML IV ONE (17:25)
--- NOTE | 2017-11-16 17:32 | EDPHY ---
H & P Stated Complaint: foot infection missed appt with dermatology today r/t car problems Time Seen by Provider: 11/16/17 17:16 HPI/ROS: CHIEF COMPLAINT: Bilateral leg erythema drainage pain HISTORY OF PRESENT ILLNESS: Patient is an 81-year-old female with a history of CHF, peripheral vascular disease, atrial fibrillation, eczema and renal insufficiency who was seen by drum operator on Thursday and started on doxycycline and Polysporin cream for cellulitis to her lower extremities. She missed her follow-up appointment today because her car broke down. When she called the office and told him that it was worsened and was draining they recommended she come to the ER. She is not sure she has had fevers but has had some chills at home. No vomiting. No urinary symptoms. No shortness of breath. The patient tells me that she is taking an herbal blood thinner. REVIEW OF SYSTEMS: Constitutional: denies: chills, fever, recent illness, recent injury EENTM: denies: blurred vision, double vision, nose congestion Respiratory: denies: cough, shortness of breath Cardiac: denies: chest pain, irregular heart rate, lightheadedness, palpitations Gastrointestinal/Abdominal: denies: abdominal pain, diarrhea, nausea, vomiting, blood streaked stools Genitourinary: denies: dysuria, frequency, hematuria, pain Musculoskeletal: denies: joint pain, muscle pain Skin: See HPI Neurological: denies: headache, numbness, paresthesia, tingling, dizziness, weakness Hematologic/Lymphatic: denies: blood clots, easy bleeding, easy bruising Immunologic/allergic: denies: HIV/AIDS, transplant EXAM: GENERAL: Well-appearing, well-nourished and in no acute distress. HEAD: Atraumatic, normocephalic. EYES: Pupils equal round and reactive to light, extraocular movements intact, sclera anicteric, conjunctiva are normal. ENT: TMs normal, nares patent, oropharynx clear without exudates. Moist mucous membranes. NECK: Normal range of motion, supple without lymphadenopathy or JVD. LUNGS: Breath sounds clear to auscultation bilaterally and equal. No wheezes rales or rhonchi. HEART: Regular rate and rhythm without murmurs, rubs or gallops. ABDOMEN: Soft, nontender, normoactive bowel sounds. No guarding, no rebound. No masses appreciated. BACK: No CVA tenderness, no spinal tenderness, step-offs or deformities EXTREMITIES: Bilateral lower extremities up clear chronically edematous with flaking and scaling of skin. Mild erythema and warmth. Open wounds on the feet. NEUROLOGICAL: Cranial nerves II through XII grossly intact. Normal speech, normal gait. 5/5 strength, normal movement in all extremities, normal sensation PSYCH: Normal mood, normal affect. SKIN: See above Source: Patient Exam Limitations: No limitations - Personal History Current Tetanus Diphtheria and Acellular Pertussis (TDAP): No Tetanus Vaccine Date: <10 YRS - Medical/Surgical History Hx Asthma: No Hx Chronic Respiratory Disease: No Hx Diabetes: No Hx Cardiac Disease: Yes Hx Renal Disease: Yes Hx Cirrhosis: No Hx Alcoholism: No Hx HIV/AIDS: No Hx Splenectomy or Spleen Trauma: No Other PMH: CHF, valve repair, magdalene hip repairs, hypothyroid, afib, stage III Renal failure, cellulitis,eczema. - Family History Significant Family History: No pertinent family hx - Social History Smoking Status: Never smoked Alcohol Use: Sober Drug Use: None Constitutional: Initial Vital Signs Temperature (C) 36.4 C 11/16/17 17:11 Heart Rate 112 H 11/16/17 17:11 Respiratory Rate 17 11/16/17 17:11 Blood Pressure 117/78 11/16/17 17:11 O2 Sat (%) 96 11/16/17 17:11 O2 Delivery Mode Room Air Allergies/Adverse Reactions: amoxicillin Allergy (Intermediate, Verified 11/16/17 17:06) Rash Iodinated Contrast- Oral and IV Dye Allergy (Verified 11/16/17 17:06) Penicillins Allergy (Verified 11/16/17 17:06) Rash SEASONAL Allergy (Uncoded 04/29/17 15:35) SNEEZING, RUNNY NOSE Home Medications: Medication Instructions Recorded Ascorbic Acid [Vitamin C 500 mg 500 mg PO TID 12/17/15 (*)] Calcitriol [Calcitriol (*)] 0.25 mcg PO WESA 08/31/16 Carvedilol [Coreg (*)] 6.25 mg PO BIDMEAL 08/31/16 Melatonin [Melatonin 3 MG (*)] 3 mg PO HS 08/31/16 Magnesium Oxide [Magnesium Oxide 400 mg PO HS 01/22/17 400 mg (*)] Vitamin B Complex [B Complex] 1 each PO DAILY 01/22/17 Diltiazem Cd [Cardizem ER 120 MG 120 mg PO DAILY #30 cap 05/01/17 (*)] Doxycycline Hyclate [Vibramycin 100 mg PO BID 11/16/17 100 MG (*)] Herbals/Supplements -Info Only 1 ea PO DAILY 11/16/17 Nature-Thyroid 65 mg PO DAILY 11/16/17 Medical Decision Making ED Course/Re-evaluation: 6:00 p.m. the patient had been refusing care. I talked to her further and assured her that these are the correct antibiotics to try and that she does medically need to stay in the hospital. She finally consented to blood draw. 7:30 p.m. I discussed the case with Dr. Augustin who will admit. Differential Diagnosis: Partial list of the Differential diagnosis considered include but were not limited to; cellulitis, DVT, peripheral vascular disease and although unlikely based on the history and physical exam, I also considered CHF, renal failure. - Data Points Laboratory Results: Laboratory Results 11/16/17 18:00 11/16/17 18:00 Medications Given: Ascorbic Acid (Vitamin C) 500 mg PO TID SKYLA Stop: 05/15/18 21:59 Last Admin: 11/17/17 12:30 Dose: 500 mg Carvedilol (Coreg) 6.25 mg PO BIDMEAL SKYLA Stop: 05/16/18 07:59 Last Admin: 11/17/17 08:45 Dose: 6.25 mg Clotrimazole (Lotrimin 1%) 1 naheed TP BID SKYLA Stop: 12/17/17 10:44 Last Admin: 11/17/17 12:30 Dose: 1 naheed Diltiazem HCl (Cardizem Er Q24hr) 120 mg PO DAILY SKYLA Stop: 05/16/18 08:59 Last Admin: 11/17/17 12:29 Dose: 120 mg Enoxaparin Sodium (Lovenox) 30 mg SC DAILY SKYLA Stop: 05/16/18 08:59 Last Admin: 11/17/17 08:57 Dose: Not Given Magnesium Oxide (Magnesium Oxide) 400 mg PO HS SKYLA Stop: 05/15/18 21:29 Last Admin: 11/16/17 22:51 Dose: 400 mg Melatonin (Melatonin) 3 mg PO HS SKYLA Stop: 05/15/18 21:29 Last Admin: 11/16/17 22:51 Dose: 3 mg Miscellaneous Medication (Nature-Thyroid) 65 mg PO DAILY SKYLA Stop: 05/16/18 08:59 Last Admin: 11/17/17 09:05 Dose: Not Given Vitamin B Complex (Vitamin B Complex) 1 ea PO DAILY SKYLA Stop: 05/16/18 08:59 Last Admin: 11/17/17 12:29 Dose: 1 ea Discontinued Medications Ceftriaxone Sodium/Dextrose (Rocephin 1 Gm (Premix)) 50 mls @ 100 mls/hr IV EDNOW ONE PRN Reason: Protocol Stop: 11/16/17 17:53 Last Admin: 11/16/17 20:12 Dose: 50 mls Vancomycin/Sodium Chloride (Vancomycin 1 Gm (Premix)) 250 mls @ 250 mls/hr IV EDNOW ONE PRN Reason: Protocol Stop: 11/16/17 18:24 Last Admin: 11/16/17 18:29 Dose: 250 mls Departure - Departure Disposition: [facility] Inpatient Acute Clinical Impression: Cellulitis Qualifiers: Site of cellulitis: extremity Site of cellulitis of extremity: lower extremity Laterality: unspecified laterality Qualified Code(s): L03.119 - Cellulitis of unspecified part of limb Condition: Fair
[2017-11-16 18:53] LABS: PLATELET COUNT 298 10^3/uL (150-400)
[2017-11-16 19:08] LABS: INR 1.19 (0.83-1.16); PROTIME(PATIENT) 15.3 SEC (12.0-15.0)
[2017-11-16] MEDS ORDERED: oxyCODONE IR 5 MG TAB PO PRN (21:20)
[2017-11-16] MEDS ORDERED: ONDANSETRON DISINTEGRATING 4 MG TAB PO PRN (21:20)
[2017-11-16] MEDS ORDERED: ONDANSETRON 4 MG/2 ML VIAL IVP PRN (21:20)
[2017-11-16] MEDS ORDERED: ACETAMINOPHEN 325 MG TAB PO PRN (21:20)
[2017-11-16] MEDS ORDERED: MAGNESIUM OXIDE 400 MG TAB PO SCH (21:30)
[2017-11-16] MEDS ORDERED: MELATONIN 3 MG TAB PO SCH (21:30)
--- NOTE | 2017-11-16 22:41 | GHP ---
[f rep st] HISTORY AND PHYSICAL DATE OF ADMISSION: 11/16/2017 CHIEF COMPLAINT: Leg swelling and pain. HISTORY: This is an 81-year-old female who has a past medical history that includes chronic systolic and diastolic heart failure, atrial fibrillation with associated sick sinus syndrome pending ablatio n and pacemaker placement as well as chronic kidney disease and chronic lower extremity edema, who pr esents with increased pain, swelling, and redness of her bilateral lower extremities. Patient notes that she also has noted increased oozing from her bilateral feet. She has been followed by a dermato logist who recently started her on a topical cream as well as oral doxycycline. However, she notes t hat despite that the feet appeared to be getting worse. She notes that they are now so painful that she has difficulty walking. Patient denies fevers or chills. She denies any chest pain or shortness of breath. She has had issu es in the past with medical compliance but states that she has been compliant with her medication, in cluding a diuretic which was prescribed by Dr. Agarwal. PAST MEDICAL HISTORY: 1. Chronic diastolic and systolic heart failure with an ejection fraction of 45%. 2. Permanent atrial fibrillation, now with a planned pacemaker and AV node ablation procedure planne d for November. 3. Chronic kidney disease with baseline creatinine of 1.2. 4. Left atrial thrombus for which patient has declined anticoagulation. 5. Valvular heart disease, status post mitral valve repair. 6. Chronic bilateral lower extremity edema and chronic venous stasis. 7. Low B12. 8. Hypothyroidism. PAST SURGICAL HISTORY: 1. Cataract surgery. 2. Hip replacement. 3. Mitral valve replacement. FAMILY HISTORY: Parents are . SOCIAL HISTORY: Patient is and lives independently. She uses marijuana and alcohol occasio dieudonne. She does have 1 child. REVIEW OF SYSTEMS: 10-point review of systems obtained and is negative except as per HPI. MEDICATIONS: 1. Vitamin B. 2. Nature thyroid. 3. Melatonin. 4. Magnesium oxide. 5. Doxycycline. 6. Diltiazem. 7. Carvedilol. 8. Calcitriol. 9. Ascorbic acid. ALLERGIES: Penicillins as well as iodinated contrast. PHYSICAL EXAMINATION: VITAL SIGNS: BP 127/65, heart rate 76, respiratory rate 18, O2 sats 93% on ro om air, temperature is 36.7. GENERAL APPEARANCE: This is a well-developed/well-nourished female. S he is in no acute distress. EYES: Anicteric. HENT: Oropharynx is clear. CARDIOVASCULAR: Regular ly irregular, no MRG. PULMONARY: CTA bilaterally to anterior exam. ABDOMEN: Soft, nontender, nond istended. EXTREMITIES: There is a bilateral lower extremity erythema and skin thickening as well as crusting and flaking of the bilateral feet and scattered oozing of serosanguineous fluid. Legs are bilaterally warm to the touch and tender to palpation. SKIN: As per above, otherwise normal. NEURO/PSYCH: Oriented and appropriate, pleasant. CLINICAL DATA: 1. Labs reviewed and notable for a white blood cell count of 7.5, hematocrit of 34.7. Creatinine is 1.2. 2. Recent micro from her foot wound growing MSSA, enterococcus, and stenotrophomonas, all sensitive to vancomycin. 3. Extremity venous ultrasound showing no DVT in bilateral legs, enlarged lymph nodes in both groins , possibly reactive. ASSESSMENT/PLAN: This is an 81-year-old female with multiple medical issues including congestive hea rt failure, atrial fibrillation, and chronic kidney disease, presenting with bilateral lower extremit y edema, erythema, and oozing concerning for cellulitis. 1. Cellulitis. It is somewhat unusual in that it is involving both legs, although on examination, h er legs are deep, erythematous, warm, and tender bilaterally. She does have certainly significant ch anges consistent with chronic venous stasis and chronic edema, however. She did have a recent wound culture showing multiple organisms including methicillin-sensitive Staphylococcus aureus, enterococcu s, and stenotrophomonas. She will be continued on vancomycin as all these organisms were shown to be sensitive to vancomycin. Infectious Disease and Wound Care have been consulted. We will check a pr ocalcitonin. 2. Permanent atrial fibrillation. This has been a large contributor to her chronic lower extremity edema. She has been reluctant in the past undergo any treatment for this but is now scheduled for a pacemaker followed by atrioventricular node ablation in early November with Dr. Perez. For now, we will co ntinue her current medications of diltiazem and Coreg. Of note, patient has declined anticoagulation in the past and continues to do so. 3. Chronic diastolic and systolic heart failure, again contributing to problem #1. This is made wor se by her permanent atrial fibrillation. She states she is on a diuretic at home but was unable to p rovide that information to the pharmacist, and this will need to be added when available. 4. Chronic kidney disease. This is at baseline. 5. Left atrial thrombus. Again, patient declines anticoagulation. Cardiology is aware and is follo wing her closely as an outpatient. DISPOSITION: Observation status for now. Patient is new to my care. Old records reviewed and summarized as per HPI and past medical history. Care plan reviewed with ER physician, including plans for antibiotic therapy. /[id number]/MODL
[2017-11-16] MEDS: ASCORBIC ACID 500 MG TAB PO SCH (22:51)
[2017-11-17] MEDS: CARVEDILOL 6.25 MG TAB PO SCH ×2 (08:45→18:35)
[2017-11-17] MEDS ORDERED: ENOXAPARIN 30 MG/0.3 ML SYR SC SCH (09:00)
[2017-11-17] MEDS ORDERED: DILTIAZEM CD 120 MG CAP PO SCH (09:00)
[2017-11-17] MEDS ORDERED: VITAMIN B COMPLEX 1 EA CAP/TAB PO SCH (09:00)
[2017-11-17] MEDS ORDERED: NATURE THYROID 65 MG PO SCH (09:00)
[2017-11-17] MEDS ORDERED: CLOTRIMAZOLE 1% 15 GM CRTUBE TP SCH (10:45)
--- NOTE | 2017-11-17 11:19 | GCON ---
[f rep st] CONSULTATION INFECTIOUS DISEASE CONSULTATION DATE OF CONSULTATION: 11/17/2017 REFERRING PHYSICIAN: Xuan Dainels MD REASON FOR CONSULTATION: Possible bilateral lower extremity cellulitis. HISTORY OF PRESENT ILLNESS: Patient is an 81-year-old female with a past medical history of chronic heart failure, atrial fibrillation and sick sinus syndrome, and chronic edema, whom I am asked to see in consultation for possible bilateral lower extremity cellulitis. The patient describes having chr onic lower extremity with increasing redness and tenderness of both legs over the last 3-4 weeks. Rina varma was seen by her calender worker helper and initially treated with antifungal therapy over her feet. Subsequ ently, a culture was obtained, which showed growth of MSSA, and she was started on doxycycline prior to last weekend. She describes doxycycline being associated with significant pruritus and does not f eel it has helped her lower extremities. She describes clear yellow fluid oozing from her feet bilat erally. She does describe having temperatures in the 99-degree range approximately 2 weeks ago. She feels cold all the time. She does have some tenderness in both inguinal regions. Ultrasound of the lower extremities was performed, which showed no evidence of DVT, but did show evidence of bilateral inguinal adenopathy. The patient has been started empirically on vancomycin given concern for possi ble bilateral lower extremity cellulitis. Review of prior records shows that she had erythema noted in the lower extremities in a prior hospitalization as well. The patient notes she tries to elevate her legs as much as possible, but notes this is difficult when taking care of usual daily activities. Given the above findings, I am now asked to assist in her ongoing management. PAST MEDICAL HISTORY: Bilateral lower extremity edema, chronic diastolic and systolic heart failure, atrial fibrillation, chronic renal insufficiency, left atrial thrombus, history of mitral valve dise ase, hypothyroidism. PAST SURGICAL HISTORY: Bilateral hip replacement, mitral valve replacement, cataracts. CURRENT MEDICATIONS: Vancomycin 500 mg IV q.24 hours, ceftriaxone 1 g IV x1, vitamin C 500 mg p.o. t .i.d. calcitriol 0.25 mcg p.o. Thursday and Thursday, Coreg 6.25 mg p.o. b.i.d., Cardizem ER 120 mg p.o. daily, Lovenox 30 mg subcu daily, magnesium 400 mg p.o. q.h.s., melatonin 3 mg p.o. q.h.s., Natu re Thyroid orally daily, vitamin B p.o. daily. ALLERGIES: Amoxicillin associated with facial swelling, contrast dye associated with renal injury. SOCIAL HISTORY: Patient does not smoke. She drinks alcohol rarely. No pets at home. FAMILY HISTORY: Brother with diabetes. REVIEW OF SYSTEMS: Outside that noted in the HPI, the remainder of a 10-system review is unremarkabl e, except for the patient notes the presence of arrhythmia. PHYSICAL EXAMINATION: VITAL SIGNS: Temperature 37.1, heart rate 93, respiratory rate 16, blood pres sure 120/70, oxygen saturation 93% on 2 L. GENERAL: Patient is well nourished, well developed, in n o acute distress. She appears nontoxic. HEENT: There is no scleral icterus, conjunctival injection , or conjunctival petechiae. Oropharynx shows moist mucous membranes. No thrush present. Dentition in good repair. There is no nasal discharge. NECK: Supple, without palpable lymphadenopathy or th yromegaly. CHEST: Clear to auscultation bilaterally, without adventitious sounds. Respiratory effo rt is normal. CARDIOVASCULAR: Irregularly irregular. A 2/6 systolic murmur is heard at the left up per sternal border. ABDOMEN: Soft, mildly distended, nontender. No palpable organomegaly. Bowel s ounds are present. MUSCULOSKELETAL: There is bilateral 2+ lower extremity edema, which is slightly more prominent on the left; there is circumferential erythema below the knee bilaterally with flaking of skin over the feet bilaterally and lateral lower extremity; there is mild warmth and tenderness p resent. SKIN: See musculoskeletal exam; there is evidence of excoriation over the back; there is bi lateral tinea pedis with some fissuring between the toes. LYMPHATICS: There are bilateral approxima tely 2 cm mobile inguinal nodes present. No cervical or supraclavicular nodes. NEUROLOGIC: Patient is alert and interacts appropriately with examiner. Cranial nerves 2-12 are grossly intact. Sensat ion is grossly intact. LABORATORY DATA: White blood cell count 7.5, hematocrit 34.7, platelets 298, neutrophils 71%. Serum creatinine is 1.2. Bicarbonate is 20. Procalcitonin is 0.15. Venous lactate is 0.8. Urinalysis i s negative. Ultrasound is outlined above. Blood cultures x2 sets are pending. IMPRESSION: 1. Bilateral lower extremity erythema with edema: The clinical findings are most compatible with ch ronic venous insufficiency and stasis dermatitis. I think superimposed cellulitis is unlikely at thi s point based on clinical findings. The patient would benefit from elevation and compression as prim shy modality, as well as management of arrhythmia, which is planned for early November. Favor discontinu ation of antibiotics with use of Tubigrip for compression and elevation and continued followup as an outpatient over time. 2. Tinea pedis: This will pose a risk for development of cellulitis. Will treat with clotrimazole cream b.i.d. RECOMMENDATIONS: 1. Discontinue vancomycin. Observe off antibiotics. 2. Compression and elevation of lower extremities bilaterally. 3. Clotrimazole applied twice daily between the web spaces of toes. 4. Follow up blood cultures as available. 5. Will arrange for followup in our office next week for repeat assessment to ensure no evolution ov er time. 6. Thank you for this consultation. We will continue to follow the patient with you. /[id number]/MODL
[2017-11-17] MEDS: ASCORBIC ACID 500 MG TAB PO SCH ×2 (12:30→15:58)
--- NOTE | 2017-11-17 14:51 | ASMTCMCOM ---
CM Note CM Note Notes: Pt with numerous comorbidities in for bilateral foot cellulitis. PT rec home. ID consulting, pt now off antibiotics and pt will follow up with ID outpatient. Wound Care consulting. Pt wants home health RN for wound care. Referral made to [facility], spoke with Elba. Pt resides independently with housemate. CM to follow. Date Signed: 11/17/2017 02:51 PM Electronically Signed By:TATUM Mullins
[2017-11-17] MEDS ORDERED: THYROID 60 MG TAB PO SCH (15:15)
--- NOTE | 2017-11-17 15:19 | ASMTCMCOM ---
CM Note CM Note Notes: Wound care has not been able to see pt, see note. After speaking with Hospitalist Sonido pt likely does not require HHC RN for wound care as pt does not have wounds complex enough and can follow outpatient at wound care clinic. Pt heart failure is ultimately impacting her feet. CM to follow. Date Signed: 11/17/2017 03:18 PM Electronically Signed By:TATUM Mullins
--- NOTE | 2017-11-17 18:01 | HOSPPROG ---
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 However she was prescribed doxycycline and taken it now for 11 days twice daily and is made no improvement in the discomfort or appearance of her legs, infected both are worse at this time. I reviewed the case with Dr. Yoandy Oliver who saw her this morning and based on examination both of us feel that there is no current evidence of cellulitis but the which she actually has is significant stasis dermatitis. The patient did not mention to the pharmacist when she did her home medicine reconciliation but she has apparently been taking at the chronic acid 50 mg daily in the morning slightly. I reviewed her diuretic use with Dr. Ziyad Agarwal, her rn telephonic today. She apparently has had a significant allergic reaction to sulfa based drugs and so was unable to take sulfa based diuretic medicines. The patient says she is on a low-salt diet when I discussed this with her, but as we dissect what her diet actually entail she does add a moderate amount of salt and does not really do any salt counting. She does have some tendency to avoid prepared foods but on the other hand she will eat sausages and other salty meats etc. PLANS: Increased effort chronic acid to 75 mg daily Strict 2 g sodium diet Elevation of legs above the heart several times daily If the patient is willing will have her use Rajan wraps or Ayad stockings on legs, I have ordered Rajan wraps here for the time being Topical steroid for her legs At this time will need ongoing diuresis, elevation of legs, and Rajan wraps, and will need to be observed carefully. If she does not have improvement in her edema or dermatitis may need to use IV diuretics which she is somewhat reluctant to use to start with. As will need ongoing treatment here and monitoring will need to changed inpatient SUBJECTIVE: Ongoing pain swelling and discoloration of both legs, with some weeping from skin but no other change OBJECTIVE Vitals reviewed: Good rate control of her AFib otherwise stable vitals no fever Guide Visitor, my review: Exam: alert oriented skin warm dry color ok resps not labored lungs clear BSs heart regular abd soft nondistended nontender, bowel sounds present limbs warm, no edema iv site ok Laboratory data: No elevation of white blood cell count Note that her creatinine of 1.2 his stable baseline for her Objective: Vital Signs Temp Pulse Resp BP Pulse Ox 36.4 C 95 18 123/84 H 89 L 11/17/17 15:33 11/17/17 15:33 11/17/17 15:33 11/17/17 15:33 11/17/17 15:33 11/16/17 11/17/17 11/18/17 06:59 06:59 06:59 Intake Total 600 Output Total 300 200 Balance 300 -200 PT 15.3 SEC (12.0-15.0) H 11/16/17 18:00 INR 1.19 (0.83-1.16) H 11/16/17 18:00 - Time Spent With Patient Time Spent with Patient: greater than 35 minutes Time Spent with Patient: Greater than 35 minutes spent on this patients care, greater than 50% of time spent counseling, educating, and coordinating care regarding the above mentioned plan. ICD10 Worksheet Patient Problems: Problems Problem Status Onset Cellulitis Acute Transient ischemic attack Active Atrial fibrillation Acute CHF (congestive heart failure) Acute CHF exacerbation Acute Chronic Disease Mgmt/Transitional Care Acute Leg edema Acute Malaise Acute Skin rash Acute Wide-complex tachycardia Acute
[2017-11-17] MEDS ORDERED: VANCOMYCIN 500 MG in NS 100 ML IV SCH (18:30)
[2017-11-17 20:05] VITALS: BP 138/63
[2017-11-17] MEDS ORDERED: [UNRECOGNIZED DRUG - OTHER] PO SCH (20:30)
--- NOTE | 2017-11-17 20:34 | PDDCSUM ---
Discharge Summary Discharge Summary: DISCHARGE DIAGNOSES: -acute stasis dermatitis of legs with market pain -acute on chronic right-sided congestive heart failure -poor compliance with low-salt diet with known systolic and right-sided congestive heart failure -chronic renal failure, stable CONSULTANTS: Dr. Yoandy Oliver of infectious disease PROCEDURES: Venous Doppler studies of the legs with no DVT HOSPITAL COURSE SUMMARY: This patient came into the hospital with worsening pain and swelling in her legs. Her initial diagnosis in the ER was cellulitis of the legs. Notably she had been seen in the dermatology clinic about 2 weeks prior to this admission and was diagnosed there with cellulitis. However she was given doxycycline to take twice daily and her legs got worse instead of better. On the day of discharge the patient was examined by myself and by Dr. Yoandy Oliver of Infectious Disease together. With felt that there was not evidence of infectious cellulitis, but the patient had severe stasis dermatitis. Was clear that she had worsening edema over the last couple of months with gradually increasing pain associated with that. There been no fevers or white counts were not elevated. Is recommended that the patient increase her ethacrynic acid, and use compression stockings which she expressed some reluctance to use. Her diet was also reviewed in detail and she has getting more salt than was appropriate. She was counseled extensively on the importance of a low-salt diet. At this point it was felt the patient was stable for discharge to home and she wished to go home so was discharged. In addition the patient is known to have chronic atrial fibrillation and their current plans with her arts administrator in the coming month to have placement of a pacemaker along with AFib ablation which will hopefully improve her cardiac function and make it easier to resolve her edema over time. She is encouraged to continue on with her planned follow-up with Cardiology PENDING TEST RESULTS: None MEDICATION CHANGES: Increase of her ethacrynic acid from 50 mg daily to 75 mg daily FOLLOW-UP PLAN: With Dr. Agarwal in Nephrology Clinic to follow up her fluid balance and diuretic dosing With Dr. Yoandy Oliver in Infectious Disease Clinic to follow her legs for question infection With Cardiology as she is expected to have a pacemaker placed and AFib ablation Greater than 35 minutes bedside and care coordination time today
[2017-11-17] MEDS ORDERED: TRIAMCINOLONE 0.1% 15 GM CRTUBE TP SCH (22:00)
[2017-11-18] MEDS ORDERED: ETHACRYNIC ACID 25 MG TAB PO SCH (09:00)
[2017-11-18] MEDS ORDERED: CALCITRIOL 0.25 MCG CAP PO SCH (09:00)
--- NOTE | 2017-11-18 11:12 | PDMN ---
Medical Necessity Medical necessity: Change to IP, as of 11/17/17, per MD; los >2 mn for ongoing management of acute on chronic CHF w/severe stasis dermatitis & uncontrolled pain; admit for close observation, further tx & diuresis; hx CHF, AFIB, CKD; per progress note & order 11/17/17
== END 2017-11-17 22:00 | disposition home or self-care (01) | DRG 301 ==
LOC: F3N 21:05 → OBSVTOIN 11-17 17:52
PROVIDERS: ADMIT Internal Medicine; ATTEND Internal Medicine
DX: I87.2 Venous insufficiency (chronic) (peripheral) (principal); I48.2 Chronic atrial fibrillation; I50.813 Acute on chronic right heart failure; N18.9 Chronic kidney disease, unspecified; I51.3 Intracardiac thrombosis, not elsewhere classified; Z95.2 Presence of prosthetic heart valve
CPT/HCPCS: 96365; 97161-GP; 97165-GO; 97535-GO; G0378; G8978-GP-CI; G8979-GP-CI; G8980-GP-CI; G8987-GO-CI; G8988-GO-CI; J0696; J3370

== ENCOUNTER 2017-11-30 15:38 | Inpatient (IN) | payer OTHER, MEDICARE ==
--- NOTE | 2017-11-30 15:55 | EDPHY ---
H & P Time Seen by Provider: 11/30/17 15:50 HPI/ROS: Chief complaint. Leg cellulitis HPI. 82-year-old female presents emergency department with redness and pain in her legs for the last several days. She was hospitalized is November 16 for leg cellulitis. Her rash and symptoms were improved and now worse again. She is no longer taking any antibiotics. She had fever to 102 degrees yesterday. Today chills and shaking. No upper respiratory symptoms including chest discomfort or trouble breathing. Denies abdominal pain vomiting or diarrhea. She does admit to decreased appetite. However she tells me that she uses oxygen at night when she wakes up in the morning her oxygen saturation is 84%. She notes that she has had an itchy rash to her back for the last several days. ROS Constitutional. Fever and chills Eyes. no problems with vision ENT. no sore throat, no nasal drainage Cardiovascular. no chest pain Respiratory. no shortness of breath, no cough Abdominal. no abdominal pain, no nausea/vomiting, no diarrhea . no problems urinating MS. Bilateral leg pain swelling Skin. Erythema to legs. Itchy rash on back Lymph. no swollen glands Neuro. no headache, no dizziness, no difficulty walking or with speech Past Medical/Surgical History: Past medical history is significant for chronic atrial fibrillation scheduled for pacemaker. Chronic renal insufficiency with baseline creatinine 1.2. Left atrial thrombus and patient declined has declined anticoagulation. Prosthetic mitral valve, chronic venous stasis, hypothyroid Social History: , lives independently. Nonsmoker, no alcohol Smoking Status: Never smoked Physical Exam: General Appearance: Alert well-developed female moderate distress vital signs show heart rate 109 and O2 saturation 92% on room air Eyes: Pupils equal and round no pallor or injection. ENT, Mouth: Mucous membranes are moist. Respiratory: There are no retractions, lungs are clear to auscultation. Cardiovascular: Regular rate and rhythm. Gastrointestinal: Abdomen is soft and nontender, no masses, bowel sounds normal. Neurological: Awake and alert, sensory and motor exams grossly normal. Skin: Fine erythematous rash on her back. Both legs are erythematous consistent with cellulitis Musculoskeletal: Neck is supple nontender. Extremities symmetrical, full range of motion. Psychiatric: Patient is oriented X 3, there is no agitation. Constitutional: Initial Vital Signs Temperature (C) 36.7 C 11/30/17 15:44 Heart Rate 109 H 11/30/17 15:44 Respiratory Rate 16 11/30/17 15:44 Blood Pressure 156/87 H 11/30/17 15:44 O2 Sat (%) 92 11/30/17 15:44 O2 Delivery Mode Nasal Cannula O2 (L/minute) 2 Allergies/Adverse Reactions: amoxicillin Allergy (Intermediate, Verified 11/30/17 15:43) Rash Iodinated Contrast- Oral and IV Dye Allergy (Verified 11/30/17 15:43) Penicillins Allergy (Verified 11/30/17 15:43) Rash SEASONAL Allergy (Uncoded 11/30/17 15:43) SNEEZING, RUNNY NOSE Home Medications: Medication Instructions Recorded Ascorbic Acid [Vitamin C 500 mg 500 mg PO TID 12/17/15 (*)] Calcitriol [Calcitriol (*)] 0.25 mcg PO WESA 08/31/16 Carvedilol [Coreg (*)] 6.25 mg PO BIDMEAL 08/31/16 Melatonin [Melatonin 3 MG (*)] 3 mg PO HS 08/31/16 Magnesium Oxide [Magnesium Oxide 400 mg PO HS 01/22/17 400 mg (*)] Vitamin B Complex [B Complex] 1 each PO DAILY 01/22/17 Diltiazem Cd [Cardizem ER 120 MG 120 mg PO DAILY #30 cap 05/01/17 (*)] Nature-Thyroid 65 mg PO DAILY 11/16/17 Adrenal Builder Supplement 1 tab PO DAILY 11/17/17 Clotrimazole 1% [Lotrimin 1%] 1 naheed TP BID cream 11/17/17 Ethacrynic Acid [Edecrin 25 MG (*)] 75 mg PO DAILY tab 11/17/17 Triamcinolone 0.1% [Triamcinolone 1 naheed TP TID cream 11/17/17 0.1% Cream (*)] Medical Decision Making - Diagnostics EKG Interpretation: EKG interpreted by me shows atrial fibrillation with left axis deviation. LVH by voltage no significant ST elevation or depression. The rate is 92 Imaging Results: Patient refuses chest x-ray Procedures: IV normal saline. Septic workup. Vancomycin IV ED Course/Re-evaluation: Re-evaluation patient is stable. Patient and I discussed lab results. We discussed treatment plan including need for admission. She expresses understanding and agreement I consulted and discussed the case with Dr. Head, hospitalist, who agrees to the admission I also consulted discussed the case with Dr. Oliver for Infectious Disease who recommends vancomycin 750 mg IV Differential Diagnosis: This appears to be cellulitis. I have considered pneumonia as well as CHF. Patient declines chest x-ray. I have considered UTI. Patient was recently hospitalized for leg cellulitis and it appears that this is the diagnosis again. Currently the patient's lactate is normal. No evidence for severe sepsis - Data Points Laboratory Results: 11/30/17 11/30/17 11/30/17 16:30 16:30 16:30 WBC Pending RBC Pending Hgb Pending Hct Pending MCV Pending MCH Pending MCHC Pending RDW Pending Plt Count Pending MPV Pending Neut % (Auto) Pending Lymph % (Auto) Pending Cooper % (Auto) Pending Eos % (Auto) Pending Baso % (Auto) Pending Nucleat RBC Rel Count Pending Absolute Neuts (auto) Pending Absolute Lymphs (auto) Pending Absolute Monos (auto) Pending Absolute Eos (auto) Pending Absolute Basos (auto) Pending Absolute Nucleated RBC Pending Immature Gran % Pending Immature Gran # Pending PT Pending INR Pending APTT Pending VBG Lactic Acid Sodium Pending Potassium Pending Chloride Pending Carbon Dioxide Pending Anion Gap Pending BUN Pending Creatinine Pending Estimated GFR Pending Glucose Pending Calcium Pending Total Bilirubin Pending NT-Pro-B Natriuret Pep Pending 11/30/17 16:30 WBC RBC Hgb Hct MCV MCH MCHC RDW Plt Count MPV Neut % (Auto) Lymph % (Auto) Cooper % (Auto) Eos % (Auto) Baso % (Auto) Nucleat RBC Rel Count Absolute Neuts (auto) Absolute Lymphs (auto) Absolute Monos (auto) Absolute Eos (auto) Absolute Basos (auto) Absolute Nucleated RBC Immature Gran % Immature Gran # PT INR APTT VBG Lactic Acid 1.2 mmol/L mmol/L (0.7-2.1) Sodium Potassium Chloride Carbon Dioxide Anion Gap BUN Creatinine Estimated GFR Glucose Calcium Total Bilirubin NT-Pro-B Natriuret Pep Medications Given: Discontinued Medications Sodium Chloride (Ns) 1,000 mls @ 0 mls/hr IV EDNOW ONE; Wide Open PRN Reason: Protocol Stop: 11/30/17 16:10 Last Admin: 11/30/17 16:28 Dose: 1,000 mls Departure - Departure Disposition: [facility] Inpatient Acute Clinical Impression: Cellulitis Qualifiers: Site of cellulitis: extremity Site of cellulitis of extremity: lower extremity Laterality: unspecified laterality Qualified Code(s): L03.119 - Cellulitis of unspecified part of limb Condition: Fair Referrals: NONE *PRIMARY CARE P,. [Primary Care Provider] - As per Instructions
[2017-11-30] MEDS ORDERED: VANCOMYCIN 750 MG in NS 250 ML IV ONE (16:09)
[2017-11-30] MEDS ORDERED: NS 1,000 ML IV ONE (16:09)
--- NOTE | 2017-11-30 16:39 | CPEKG ---
Heart Rate: 92 RR Interval: 652 QRSD Interval: 138 QT Interval: 404 QTC Interval: 500 QRS [place]: -87 T Wave [place]: 196 EKG Severity - ABNORMAL ECG - EKG Impression: ATRIAL FIBRILLATION EKG Impression: NONSPECIFIC IVCD WITH LAD EKG Impression: LVH WITH SECONDARY REPOLARIZATION ABNORMALITY EKG Impression: ANTERIOR Q WAVES, POSSIBLY DUE TO LVH Electronically Signed By: Yoandy Ceja 30-Nov-2017 16:47:11
[2017-11-30 16:41] LABS: PLATELET COUNT 169 10^3/uL (150-400)
[2017-11-30 16:52] LABS: INR 1.16 (0.83-1.16)
[2017-11-30] MEDS ORDERED: CLOTRIMAZOLE 1% 15 GM CRTUBE TP PRN (18:42)
[2017-11-30] MEDS ORDERED: TRIAMCINOLONE 0.1% 15 GM CRTUBE TP PRN (18:42)
[2017-11-30] MEDS ORDERED: DILTIAZEM 60 MG TAB PO PRN (19:00)
--- NOTE | 2017-11-30 19:08 | PCMIDPN ---
Assessment/Plan: Assessment/Plan: * Fever/rigors likely associated with left lower extremity cellulitis: Patient with 2 day history of fever and shaking chills with increasing redness and tenderness in both lower extremities, left greater than right. Rigors concerning for possibility of bacteremia with either Staphylococcus aureus or beta-hemolytic streptococci as considerations. Of note, she also has an indwelling prosthetic valve which may need further evaluation of blood cultures are positive. Will begin empiric vancomycin and follow up blood cultures as available. Monitor creatinine and vancomycin levels carefully with baseline renal insufficiency. Elevate lower extremities as feasible with ongoing wound care. 11/30/17 19:04 11/30/17 19:10 Subjective: Patient seen in consultation on 11/17/2017 with possible bilateral lower extremity cellulitis. Please see my note for further details. [place] to be consistent with venous insufficiency with plan of continued observation off antibiotics. Patient notes over the last 2 days that she has had fever and shaking chills with increasing redness of both lower extremities. Left lower extremity is more prominent than the right and is associated with tenderness. She stayed in bed all day yesterday and has not been eating or drinking well. Notes that she has increased cracking in her feet bilaterally. Please see Gilda Spann's [place] note of today for additional details. Objective: Vital Signs Temp Pulse Resp BP Pulse Ox 37.0 C 67 16 141/72 H 94 11/30/17 17:54 11/30/17 17:54 11/30/17 17:54 11/30/17 17:54 11/30/17 17:54 11/29/17 11/30/17 12/01/17 05:59 05:59 05:59 Intake Total 300 Balance 300 Laboratory Tests 11/30/17 11/30/17 11/30/17 16:30 16:30 16:30 WBC 9.36 Plt Count 169 Seg Neutrophils % 81.0 VBG Lactic Acid 1.2 Creatinine 1.1 H T-max 38.6 degrees - Physical Exam General Appearance: alert, other (Rigors present) EENT: No scleral icterus Extremities: inflammation (Bilateral lower extremities with erythema, left greater than right; erythema warm and tender anteriorly on right) Skin: other (Significant lichenification and cracking of skin of feet bilaterally with scant purulence associated; venous insufficiency changes bilaterally with varicosities) Lymphatic: other (Tender in right medial thigh in lymphatic distribution without visible lymphangitis) - Time Spent With Patient Time Spent with Patient: greater than 25 minutes Time Spent with Patient: Greater than 25 minutes spent on this patients care, greater than 50% of time spent counseling, educating, and coordinating care regarding the above mentioned plan. ICD10 Worksheet Patient Problems: Problems Problem Status Onset Cellulitis Acute Transient ischemic attack Active Atrial fibrillation Acute CHF (congestive heart failure) Acute CHF exacerbation Acute Chronic Disease Mgmt/Transitional Care Acute Leg edema Acute Malaise Acute Skin rash Acute Wide-complex tachycardia Acute
--- NOTE | 2017-11-30 19:16 | PDGENHP ---
History and Physical History and Physical: CC: Fever and pain in legs HISTORY: This patient was sent in to the ER from Dr. Yoandy Oliver's office with diagnosis of bilateral leg cellulitis. She says she has been having fevers at home to 102 degrees and feeling cold today, along with some increase in discoloration of both legs with pain in both legs below the knees at home. She did have fever of 101.5 in the clinic today. Notably she was here at this hospital with stasis dermatitis of both legs a couple weeks ago. At that point she was put on a low-salt diet and increase in her dose of diuretic though she has not been taking the increased dose of diuretic on a regular basis since that discharge 2 weeks ago. She does not notice much change in the swelling of her legs so far. She cites again trouble with urine incontinence. She has no new shortness of breath, no other new symptoms at this time. Eating and drinking well without nausea Notably she had previously been scheduled to come to this hospital tomorrow for pacemaker placement and AV node ablation; due to her current febrile illness this procedure has been canceled ROS: A comprehensive 10 system review revealed no other significant findings PAST MEDICAL HISTORY: systolic congestive heart failure, ejection fraction 45% Chronic right-sided congestive heart failure with pulmonary hypertension Chronic hypoxic respiratory failure with home oxygen use Permanent atrial fibrillation, not on anticoagulation Chronic kidney disease with baseline 1.2 Chronic anemia, most likely related to renal disease but multifactorial normocytic Sulfa allergy, unable to take most loop diuretics Valvular heart disease with history of mitral valve repair Chronic stasis dermatitis of the legs Vitamin B12 deficiency Hypothyroidism Osteoarthritis and hip replacement Cataract surgery FAMILY MEDICAL HISTORY: Both parents SOCIAL HISTORY: Lives alone No tobacco or alcohol MEDICATIONS: The patients list has been reconciled by our clinical pharmacist in the EMR. I have reviewed the list and ordered appropriate medicines. PHYSICAL EXAMINATION: Vital Signs: Temperature 37.4 degrees, mildly hypertensive, her AFib rate is well controlled, respirations currently 16/m Varnish Melter Helper: Rate controlled AFib in the ER Examination: General: alert, oriented, good mentation, relaxed Skin: warm, dry, good color, no rash HEENT: normal Neck: no mass; JVD is notable at the neck Resps: relaxed Lungs: clear breath sounds Heart: regular, no murmur Abdomen: soft, nondistended, nontender, +BS, no mass Upper Extremities: normal Lower Extremities: Significant edema from the upper calf down to the feet, cellulitis of both legs from the upper calf down to the feet; there are some areas of weeping scattered about the feet and 1 area of opens skin from fissuring at the right arch medially; * notably that edema of her legs is somewhat decreased compared to my last examination of her here 2 weeks ago No Bleeding or bruising Neurologic: normal speech/language, normal director of sports performance, no focal weakness IV site: looks normal LABORATORY DATA: White blood cell count 9000 with elevated neutrophils Sodium 130, creatinine at her baseline at 1.1, bilirubin 1.8, proBNP 2800 Troponin was measured in his undetectable new RADIOLOGY STUDIES: 12 LEAD EKG, my review of ER tracing: Atrial fibrillation, rate controlled, with nonspecific interventricular conduction delay ASSESSMENT: # ACUTE CELLULITIS OF BOTH LEGS COMPLICATED BY FEVERS HIGH 102 DEGREES * Most likely staff that other organisms possible * Started on vancomycin in the ER; infectious Disease team will manage her vancomycin dosing # FISSURING OF THE SKIN OF BOTH FEET IS LIKELY PORTAL OF ENTRY FOR SKIN ORGANISMS FOR ABOVE INFECTION, MOST NOTABLY A LARGE FISSURE AT THE MEDIAL ARCH OF THE RIGHT FOOT * Appears due to her chronic stasis disease, will need wound care # CHRONIC EDEMA OF THE LEGS FROM HEART DISEASE, CHRONIC STASIS DERMATITIS * She recently did start on low-salt diet is recommended but has not increased her diuretic on a regular dose as previously recommended (likely due to her incontinence issues from discussing with her) # ALLERGY TO SULFA LIMITING WHICH DIURETIC SHE CAN USE, CURRENTLY TAKING AT THE CHRONIC ACID WHICH IS PRESCRIBED BY DR. SHAIKH # CHRONIC SYSTOLIC AND ATRIAL FIBRILLATION RELATED HEART FAILURE, STABLE BUT NOT WELL COMPENSATED AT PRESENT * Was to have pacemaker placement and AFib ablation here tomorrow December 01, but this procedures currently canceled due to infection # THE PATIENT IS CHRONICALLY NOT ON ANTICOAGULATION WHICH I BELIEVE IS BY HER CHOICE, PER HER HAM STRIPPER PLANS: * Admission hospital inpatient * Blood cultures were obtained in the ER * Vancomycin started in the ER; infectious Disease will manage dosing, I have ordered a random Vanco level for the morning * Elevation of legs and if she will allow, would use Rajan wraps to help reduce edema; did not allow Rajan wraps during previous hospital admission * Low-salt diet * Follow renal function closely * Continue her increased dose of ethacrynic acid (during her last hospital stay I had recommended increasing her 50 mg dose to 75 mg daily intending for her to take three 25 mg tablets in the morning so that she could have the evening and night without extra urine output due to incontinence issues. She misunderstood and had been trying to take 50 mg in the morning and 25 later in the day but was not doing this on a regular basis because of concerns for incontinence when she was out and about in the evening; have explained to her again that I would recommend 75 mg in the morning and she seems okay with that right now) I have reviewed the patient's case in detail with Dr. Yoandy Oliver and Yoandy Ceja I have reviewed the patient's past medical records as part of this assessment, including previous hospital admission records with physician notes, laboratory data, medicines
[2017-11-30] MEDS ORDERED: ACETAMINOPHEN 325 MG TAB PO PRN (19:21)
[2017-11-30] MEDS ORDERED: ZOLPIDEM TARTRATE 5 MG TAB PO PRN (19:21)
[2017-11-30] MEDS: ETHACRYNIC ACID 25 MG TAB PO SCH (21:09)
[2017-11-30] MEDS: ASCORBIC ACID 500 MG TAB PO SCH (21:10)
[2017-11-30] MEDS: MAGNESIUM OXIDE 400 MG TAB PO SCH (21:10)
[2017-11-30] MEDS: MELATONIN 3 MG TAB PO SCH (21:10)
[2017-11-30] MEDS: HEPARIN 5,000 UNIT/0.5 ML INJ SC SCH ×2 (21:11→23:32)
[2017-12-01] MEDS: VITAMIN B COMPLEX 1 EA CAP/TAB PO SCH (08:16)
[2017-12-01] MEDS: ASCORBIC ACID 500 MG TAB PO SCH ×3 (08:16→19:49)
[2017-12-01] MEDS: ETHACRYNIC ACID 25 MG TAB PO SCH ×3 (08:18→19:18)
--- NOTE | 2017-12-01 08:41 | PCMIDPN ---
Assessment/Plan: Assessment/Plan: * Fever/rigors associated with left lower extremity cellulitis: Marked clinical improvement with vancomycin and compression. Erythema bilaterally with significant decrease and less pain in lymphatic distribution. Blood cultures no growth to date although young. Continue vancomycin + compression. Encouraged elevation as well. Will need to achieve better skin integrity over feet as fissures and cracking likely portal of entry for infection. Follow creatinine and vancomycin levels over time - will dose at 750 mg IV q 24 hours. 12/01/17 08:37 12/01/17 08:40 Subjective: Patient without recurrent rigors. No itching or rash with vancomycin. Objective: Vital Signs Temp Pulse Resp BP Pulse Ox 37.1 C 53 L 16 103/55 L 92 12/01/17 08:00 12/01/17 08:00 12/01/17 08:00 12/01/17 08:00 12/01/17 08:00 11/30/17 12/01/17 12/02/17 05:59 05:59 05:59 Intake Total 300 Balance 300 Vancomycin #1 Blood cultures X 2 pending Laboratory Tests 12/01/17 06:15 Random Vancomycin 6.0 - Physical Exam General Appearance: alert, no apparent distress EENT: No scleral icterus, No conjunctival petechiae Respiratory: lungs clear Cardiac/Chest: regular rate, rhythm, systolic murmur (2/6 throughout) Extremities: inflammation (erthema over both lower extremities markedly decreased; tenderness and edema decreased bilaterally) Abdomen: non-tender, No distended Skin: other (fissure with foul odor over right foot plantar aspect; skin breakdown under left great toe dried with scab; diffuse lichenification) Lymphatic: adenopathy (mildly tender inguinal nodes bilaterally; lymphatic tenderness left thigh resolved) - Time Spent With Patient Time Spent with Patient: greater than 25 minutes Time Spent with Patient: Greater than 25 minutes spent on this patients care, greater than 50% of time spent counseling, educating, and coordinating care regarding the above mentioned plan. ICD10 Worksheet Patient Problems: Problems Problem Status Onset Cellulitis Acute Transient ischemic attack Active Atrial fibrillation Acute CHF (congestive heart failure) Acute CHF exacerbation Acute Chronic Disease Mgmt/Transitional Care Acute Leg edema Acute Malaise Acute Skin rash Acute Wide-complex tachycardia Acute
[2017-12-01] MEDS ORDERED: NATURE THYROID 65 MG PO SCH (09:00)
--- NOTE | 2017-12-01 09:22 | PDMN ---
Medical Necessity Medical necessity: Pt meets IP criteria per MD; est los >2 mn for eval/tx of BLE cellulitis w/fevers & rigors; concern for bacteremia; requiring further workup/monitoring, ID/Wound Care consults & IV abx; comorbid advanced age, CHF, AFIB, CKD; per H&P & order 11/30/17
--- NOTE | 2017-12-01 10:53 | ASMTCASEMG ---
Living Arrangements What is your living Answers: Alone arrangement? Who do you live with? Type Of Residence What kind of residence do Answers: House you live in? Discharge Plan Comments Coordination Status Comments Notes: CM spoke to ISI Lizarraga regarding d/c POC. Pt is a 82 y/o female admitted for cellulitis in the legs. Pt was previously at [facility] on 11/17/17 for the same presentation. Therapies have been ordered and awaiting recommendations. ID is invovled and pt may need ivabx at time of d/c. CM to follow. Plan: TBD Date Signed: 12/01/2017 10:52 AM Electronically Signed By:VINICIO Johnson
[2017-12-01] MEDS: VANCOMYCIN 750 MG in D5W 150 ML IV SCH (11:25)
[2017-12-01] MEDS: CARVEDILOL 6.25 MG TAB PO SCH ×2 (12:24→17:42)
--- NOTE | 2017-12-01 13:29 | HOSPPROG ---
Hospitalist Progress Note Assessment/Plan: 82y c/o leg pain. First encounter, chart reviewed. # left lower extremity cellulitis -improved -vancomycin and compression -Erythema bilaterally -Blood cultures no growth to date -Encouraged elevation -wound care #Fever -resolved # Chronic edema -compression -diuretic needs increasing but pt incontinence -Continue her increased dose of ethacrynic acid # Chronic systolic failure -meds #Afib -pacemaker per Dr. Perez -no anticoagulation per pt choice #Dispo -possibly in am if doing better Subjective: Feeling ok. Some general itching. No pain. Objective: Vital Signs Temp Pulse Resp BP Pulse Ox 36.8 C 74 16 129/60 H 90 L 12/01/17 11:02 12/01/17 12:24 12/01/17 11:02 12/01/17 12:24 12/01/17 11:02 Laboratory Results 12/01/17 06:15 11/30/17 12/01/17 12/02/17 05:59 05:59 05:59 Intake Total 300 Balance 300 PT 15.0 SEC (12.0-15.0) 11/30/17 16:30 INR 1.16 (0.83-1.16) 11/30/17 16:30 - Physical Exam Constitutional: appears nourished, not in pain, chronically ill appearing Eyes: PERRL, anicteric sclera, EOMI Ears, Nose, Mouth, Throat: moist mucous membranes, hearing normal, ears appear normal Cardiovascular: edema, No JVD, No tachycardia Respiratory: no respiratory distress, no rales or rhonchi, reduced air movement Gastrointestinal: normoactive bowel sounds, No tenderness, No ascites Skin: warm, erythema, No mottled Musculoskeletal: no joint effusions, pain with ROM, generalized weakness Neurologic: AAOx3 Psychiatric: not anxious, not encephalopathic, thought process linear ICD10 Worksheet Patient Problems: Problems Problem Status Onset Cellulitis Acute Transient ischemic attack Active Atrial fibrillation Acute CHF (congestive heart failure) Acute CHF exacerbation Acute Chronic Disease Mgmt/Transitional Care Acute Leg edema Acute Malaise Acute Skin rash Acute Wide-complex tachycardia Acute
[2017-12-01] MEDS: HEPARIN 5,000 UNIT/0.5 ML INJ SC SCH ×3 (15:34→21:17)
[2017-12-01] MEDS: THYROID 60 MG TAB PO SCH (18:35)
[2017-12-01] MEDS: MELATONIN 3 MG TAB PO SCH (19:48)
[2017-12-01] MEDS: MAGNESIUM OXIDE 400 MG TAB PO SCH (19:48)
[2017-12-02] MEDS: VANCOMYCIN 750 MG in D5W 150 ML IV SCH (08:57)
[2017-12-02] MEDS ORDERED: CALCITRIOL 0.25 MCG CAP PO SCH (09:00)
[2017-12-02] MEDS: THYROID 60 MG TAB PO SCH (09:04)
[2017-12-02] MEDS: ETHACRYNIC ACID 25 MG TAB PO SCH ×2 (10:12→18:36)
[2017-12-02] MEDS: CARVEDILOL 6.25 MG TAB PO SCH ×2 (10:14→18:36)
[2017-12-02] MEDS: VITAMIN B COMPLEX 1 EA CAP/TAB PO SCH (10:14)
[2017-12-02] MEDS: ASCORBIC ACID 500 MG TAB PO SCH ×3 (10:15→20:23)
--- NOTE | 2017-12-02 13:05 | PCMIDPN ---
Assessment/Plan: Assessment/Plan: * Fever/rigors associated with left lower extremity cellulitis: Continued clinical improvement with vancomycin, compression and lower extremity elevation. Purulent material drained from left great toe yesterday showing 3+ GPC with preliminary cultures suggestive of Staph aureus and beta-hemolytic strep. Will continue vancomycin with hopes to transition to oral therapy tomorrow based on culture findings. 12/02/17 13:02 Subjective: Patient complains of diffuse pruritis. Feels like this is worse with use of vancomycin. Objective: Vital Signs Temp Pulse Resp BP Pulse Ox 36.7 C 71 18 152/70 H 95 12/02/17 11:40 12/02/17 11:40 12/02/17 11:40 12/02/17 11:40 12/02/17 11:40 Microbiology 12/01/17 15:30 Gram Stain - Final Toe - Swab Laboratory Results 12/01/17 06:15 12/01/17 12/02/17 12/03/17 05:59 05:59 05:59 Intake Total 300 1250 Output Total 1000 Balance 300 1250 -1000 Vancomycin # 2 Blood cultures x2 no growth Wound culture 3+ GPCs, culture pending - Physical Exam General Appearance: alert, no apparent distress EENT: No scleral icterus Extremities: inflammation (Erythema over both lower extremities markedly decreased; scant purulence from base of left great toe without palpable fluctuance or surrounding erythema; edema markedly decreased) Abdomen: non-tender, distended Skin: other (Fissuring and cracking along plantar aspect of both feet without interval change; lichenification diffusely over feet) ICD10 Worksheet Patient Problems: Problems Problem Status Onset Cellulitis Acute Transient ischemic attack Active Atrial fibrillation Acute CHF (congestive heart failure) Acute CHF exacerbation Acute Chronic Disease Mgmt/Transitional Care Acute Leg edema Acute Malaise Acute Skin rash Acute Wide-complex tachycardia Acute
[2017-12-02] MEDS: HEPARIN 5,000 UNIT/0.5 ML INJ SC SCH ×2 (13:29→22:00)
--- NOTE | 2017-12-02 13:29 | HOSPPROG ---
Hospitalist Progress Note Assessment/Plan: 82y c/o leg pain. First encounter, chart reviewed. Evaluated the patient with Danielle, the elevator erector helper. # left lower extremity cellulitis -improved -vancomycin and compression stockings -Erythema bilaterally -Blood cultures no growth to date -Encouraged elevation -appreciate wound care #Fever w associated rigors -resolved # Chronic edema -compression stockings # Chronic systolic failure -doesn't appear to be in failure -reviewed her echo report in April of 2017, which showed systolic hear failure #Afib/ rate controlled, at times is bradycardic -pacemaker per Dr. Perez -no anticoagulation per pt choice #DVT prophylaxis:Heparin sq tid Subjective: Noemi said her legs are painful when she ambulates. Objective: Vital Signs Temp Pulse Resp BP Pulse Ox 36.7 C 71 18 152/70 H 95 12/02/17 11:40 12/02/17 11:40 12/02/17 11:40 12/02/17 11:40 12/02/17 11:40 Microbiology 12/01/17 15:30 Gram Stain - Final Toe - Swab Laboratory Results 12/01/17 06:15 12/01/17 12/02/17 12/03/17 05:59 05:59 05:59 Intake Total 300 1250 Output Total 1000 Balance 300 1250 -1000 PT 15.0 SEC (12.0-15.0) 11/30/17 16:30 INR 1.16 (0.83-1.16) 11/30/17 16:30 - Physical Exam Constitutional: no apparent distress, appears nourished Eyes: PERRL Ears, Nose, Mouth, Throat: hearing normal Cardiovascular: irregularly irregular, bradycardia Respiratory: no respiratory distress Skin: warm, other (bilateral lower extremities w dry skin diffusely, has some oozing from left big toe, has some excoriated skin on right foot (underside)) Musculoskeletal: generalized weakness Neurologic: AAOx3 Psychiatric: interacting appropriately ICD10 Worksheet Patient Problems: Problems Problem Status Onset Cellulitis Acute Transient ischemic attack Active Atrial fibrillation Acute CHF (congestive heart failure) Acute CHF exacerbation Acute Chronic Disease Mgmt/Transitional Care Acute Leg edema Acute Malaise Acute Skin rash Acute Wide-complex tachycardia Acute
--- NOTE | 2017-12-02 14:11 | ASMTCMCOM ---
CM Note CM Note Notes: Patient responding well to Vanco treatment. Likely one more day inpatient, then she can transition to oral antibiotics. Therapies recommending home. Case Management available if any discharge needs arise. Date Signed: 12/02/2017 02:10 PM Electronically Signed By:Yamilka Velasquez RN
--- NOTE | 2017-12-02 14:58 | WOCRNPDOC ---
WOCRMoshe Advanced Assessment Note - Skin Integrity Problem, Advanced Assess Left First Toe Dressing Type: Gauze Dressing Description: Clean/Dry, Intact Exudate Amount: Scant Exudate Characteristic(s): Serosanguinous Integumentary Issue Intervention: Dressing Removed Lana Wound Tissue: Macerated, Venous Dermatitis (feet), Shiny, Thin, Anhidrotic , Rubor (non dependent), Crusted, Lichenification (feet/heels), Calloused, Hyperkeratotic (feet) Wound Bed Constitution: Granulation Tissue Site Measurement - Head-to-Toe Length X Width X Depth (cm): 0.3x0.6x0.2 Pulse Location & Description: 2+ on left. unable to palpate on right. Extremity Temperature: Warm Peripheral Edema Location & Description: bilateral feet 1+ pitting edema Skin Integrity Problem Comment: Full thickness small wound of unknown origin. Skin around the edges of the wound were macerated and mechanically debrided. Area not painful for patient. Patient has venous dermatitis changes to bilateral feet and lower legs with hyper keratosis on feet. Right Lateral Foot Dressing Type: Allevyn Life Dressing Description: Clean/Dry, Intact Exudate Amount: Scant Exudate Characteristic(s): Serosanguinous Integumentary Issue Intervention: Dressing Removed Lana Wound Tissue: Macerated Wound Bed Constitution: Red/Bolton - Non Granular Tissue (100%) Wound Edges: Epithelizing Site Measurement - Head-to-Toe Length X Width X Depth (cm): 1x1.3x0.1 Skin Integrity Problem Comment: Removed Rajan wrap from below knee to ankle. Patient with edema remaining in foot. Recommend spandigrip to help with edema. Patient reports that the wound area may rub on her shoes which is possibly how the wound originated. Recommended moleskin after wound heals to alleviate pressure to area or possibly new shoes though patient is difficult to fit due to edema and foot shape. It would be helpful for her to see a assistant operations manager on a regular basis. Recommend Atractain cream to feet BID except between toes and on wounds to help rehydrate skin. Bilateral lower legs 32 cm calf circumference. Will supply spandigrip size D for medium compression which patient can start using after cellulitis has resovled. Plan discussed with patient and ISI Arreola.
[2017-12-02] MEDS: MAGNESIUM OXIDE 400 MG TAB PO SCH (20:23)
[2017-12-02] MEDS: MELATONIN 3 MG TAB PO SCH (21:54)
[2017-12-03] MEDS: HEPARIN 5,000 UNIT/0.5 ML INJ SC SCH ×2 (05:20→14:49)
[2017-12-03] MEDS: VANCOMYCIN 750 MG in D5W 150 ML IV SCH (07:53)
[2017-12-03] MEDS: CARVEDILOL 6.25 MG TAB PO SCH (08:41)
[2017-12-03 08:43] VITALS: BP 157/84
[2017-12-03] MEDS: ASCORBIC ACID 500 MG TAB PO SCH (08:44)
[2017-12-03] MEDS: THYROID 60 MG TAB PO SCH (08:45)
[2017-12-03] MEDS: VITAMIN B COMPLEX 1 EA CAP/TAB PO SCH (08:45)
[2017-12-03] MEDS ORDERED: ETHACRYNIC ACID 25 MG TAB PO SCH (09:00)
--- NOTE | 2017-12-03 10:23 | HOSPPROG ---
Hospitalist Progress Note Assessment/Plan: 82y c/o leg pain. # left lower extremity cellulitis -improved -vancomycin and compression stockings -Erythema bilaterally -Blood cultures no growth to date -Encouraged elevation -appreciate wound care -to take doxycycline for 2.5 days #Fever w associated rigors -resolved # Chronic edema -compression stockings # Chronic systolic failure -doesn't appear to be in failure -reviewed her echo report in April of 2017, which showed systolic hear failure #Afib/ rate controlled, at times is bradycardic and then tachycardic -pacemaker per Dr. Perez -no anticoagulation per pt choice #DVT prophylaxis:Heparin sq tid #plan; dc home with home theater experience expert and f/u with wound clinic and Dr Perez Subjective: Noemi is feeling fine. Objective: Vital Signs Temp Pulse Resp BP Pulse Ox 36.8 C 136 H 18 157/84 H 93 12/03/17 08:00 12/03/17 08:43 12/03/17 08:00 12/03/17 08:43 12/03/17 08:00 Microbiology 12/01/17 15:30 Gram Stain - Final Toe - Swab Laboratory Results 12/03/17 05:05 12/02/17 12/03/17 12/04/17 05:59 05:59 05:59 Intake Total 1250 600 Output Total 1900 Balance 1250 -1300 PT 15.0 SEC (12.0-15.0) 11/30/17 16:30 INR 1.16 (0.83-1.16) 11/30/17 16:30 - Physical Exam Constitutional: appears nourished, chronically ill appearing Eyes: PERRL Ears, Nose, Mouth, Throat: hearing normal Cardiovascular: irregularly irregular, tachycardia Gastrointestinal: normoactive bowel sounds Skin: other (no significant change in her bilateral lower extremities, skin dry and edema is much improved) Musculoskeletal: full muscle strength Neurologic: AAOx3 Psychiatric: interacting appropriately ICD10 Worksheet Patient Problems: Problems Problem Status Onset Cellulitis Acute Transient ischemic attack Active Atrial fibrillation Acute CHF (congestive heart failure) Acute CHF exacerbation Acute Chronic Disease Mgmt/Transitional Care Acute Leg edema Acute Malaise Acute Skin rash Acute Wide-complex tachycardia Acute
--- NOTE | 2017-12-03 10:29 | PCMIDPN ---
Assessment/Plan: Assessment/Plan: * Fever/rigors associated with left lower extremity cellulitis: Cellulitis has resolved clinically and no further fevers. Blood cultures remain negative. Cultures of purulence from left great toe with MSSA. Plan to complete 2.5 days of doxycycline which she has with her. Continue elevation and compression. [facility]. Reviewed timing of pacemaker placement with Dr. Perez who would prefer to wait 3-4 weeks prior to insertion post hospitalization. 12/03/17 11:33 Subjective: Patient complains of pruritis otherwise feeling improved. Objective: Vital Signs Temp Pulse Resp BP Pulse Ox 36.8 C 136 H 18 157/84 H 93 12/03/17 08:00 12/03/17 08:43 12/03/17 08:00 12/03/17 08:43 12/03/17 08:00 Microbiology 12/01/17 15:30 Gram Stain - Final Toe - Swab Laboratory Results 12/03/17 05:05 12/02/17 12/03/17 12/04/17 05:59 05:59 05:59 Intake Total 1250 600 Output Total 1900 Balance 1250 -1300 Vancomycin # 3 Blood cultures x2 no growth Toe culture MSSA - Physical Exam General Appearance: alert, no apparent distress EENT: No scleral icterus, No thrush Extremities: inflammation (Cellulitis over both lower extremities has resolved) Abdomen: non-tender, No distended Skin: other (Pressures over feet less prominent; no further purulence from left great toe; lichenification without change) - Time Spent With Patient Time Spent with Patient: greater than 25 minutes Time Spent with Patient: Greater than 25 minutes spent on this patients care, greater than 50% of time spent counseling, educating, and coordinating care regarding the above mentioned plan. ICD10 Worksheet Patient Problems: Problems Problem Status Onset Cellulitis Acute Transient ischemic attack Active Atrial fibrillation Acute CHF (congestive heart failure) Acute CHF exacerbation Acute Chronic Disease Mgmt/Transitional Care Acute Leg edema Acute Malaise Acute Skin rash Acute Wide-complex tachycardia Acute
--- NOTE | 2017-12-03 11:17 | PDIAF ---
- Diagnosis Diagnosis: lower extremity cellulitis Code Status: Full Code - Medication Management Discharge Medications: Medications to Continue on Transfer Ascorbic Acid [Vitamin C 500 mg (*)] 500 mg PO TID 12/17/15 [Last Taken 11/29/17 ] Calcitriol [Calcitriol (*)] 0.25 mcg PO WESA 08/31/16 [Last Taken 11/28/17] Carvedilol [Coreg (*)] 6.25 mg PO BIDMEAL 08/31/16 [Last Taken 11/29/17] Melatonin [Melatonin 3 MG (*)] 3 mg PO HS 08/31/16 [Last Taken 11/29/17] Magnesium Oxide [Magnesium Oxide 400 mg (*)] 400 mg PO HS 01/22/17 [Last Taken 11/29/17] Vitamin B Complex [B Complex] 1 each PO DAILY 01/22/17 [Last Taken 11/29/17] Nature-Thyroid 65 mg PO DAILY 11/16/17 [Last Taken 11/30/17] Clotrimazole 1% [Lotrimin 1%] 1 naheed TP BID PRN 11/30/17 [Last Taken Unknown] Diltiazem Cd [Cardizem ER 120 MG (*)] 60 mg PO DAILY PRN 11/30/17 [Last Taken ] Ethacrynic Acid [Edecrin 25 MG (*)] 25 mg PO DAILY14 PRN 11/30/17 [Last Taken Unknown] Ethacrynic Acid [Edecrin 25 MG (*)] 50 mg PO DAILY 11/30/17 [Last Taken 11/30/17 ] Herbals/Supplements -Info Only 1 ea PO DAILY 11/30/17 [Last Taken 11/29/17] Triamcinolone 0.1% [Triamcinolone 0.1% Cream (*)] 1 naheed TP TID PRN 11/30/17 [ Last Taken 11/27/17] Acetaminophen [Tylenol 325mg (*)] 650 mg PO Q6 PRN tab 12/03/17 [Last Taken Unknown] Doxycycline Hyclate 100 mg PO BID #5 tab 12/03/17 [Last Taken Unknown] Discharge Medications: Refer to the Discharge Home Medication list for PRN reason. PICC Care - Routine: N/A - Orders Services needed: Home Care, Registered Nurse Home Care Face to Face: I certify that this patient was under my care and that I had the required [id number] encounter meeting the encounter requirements on the discharge day. My findings support the fact that the patient is homebound as defined in Home Care Face to Face Continued: CMS Chapter 7 Medicare Benefits Manual 30.1.1 , The condition of the patient is such that there exists a normal inability to leave home and consequently, leaving home would require a considerable and taxing effort. Isolation Type: None Diet Recommendation: no restrictions on diet Diet Texture: Regular Texture Diet Additional Instructions: you have an appoint at the wound center 12/10/2017 at 2:00 p.m. You may reach them at [phone] Change dressings to left first toe every 2 days and prn. 1. Clean with ns and gauze 2. Skin prep monalisa wound 3. Silvasorb gel to wound bed 4. Cover with very small piece of mepilex border 4x4 cut to fit 1 cm bigger than wound bed. 5. Secure with medipore tape Danielle Torab CWON Change dressings to right lateral foot every 2 days and prn. 1. Clean with ns and gauze 2. Skin prep monalisa wound 3. Silvasorb gel to wound bed 4. Cover with mepilex border 4x4 cut to fit 1 cm bigger than wound bed. 5. Secure with medipore tape or isidro or both. Danielle Torab CWON take the doxycycline you have at home for 2 1/2 more days, one dose in the morning and one dose in the evening. set up follow up appointment with Dr Perez for pacer placement - Follow Up Care Current Providers and Referrals: NONE *PRIMARY CARE P,. [Primary Care Provider] - As per Instructions Benny Perez MD [Medical Doctor] -
--- NOTE | 2017-12-03 11:41 | GDS ---
[f rep st] DISCHARGE SUMMARY DISCHARGE DIAGNOSES: 1. Left lower extremity cellulitis. 2. Fever with associated rigors. 3. Chronic edema. 4. Chronic systolic failure. 5. Atrial fibrillation. CONSULTATION: Dr. Yoandy Oliver. HISTORY OF PRESENT ILLNESS: Briefly, the patient was admitted with possible bilateral lower extremity cellulitis that was felt to be consistent with venous insufficiency. Prior to admission, she had 2 days of fever and shaking chills with increasing redness of both lower extremities. The left lower extremity was more prominent as far as redness and tenderness. She improved during her stay with treatment of vancomycin. She will be discharged home and have wound care follow up with her. The patient has requested home care nursing to come check on her to make sure she is doing her dressing changes correctly. HOSPITAL COURSE: 1. Left lower extremity cellulitis much improved with vancomycin. Wound Care has written out in detail the treatment to be done at home. 2. Fever with associated rigors, resolved. 3. Chronic edema, better with the compression stockings. 4. Chronic systolic failure. She does not appear to be in any failure. 5. Atrial fibrillation. She goes from bradycardic to tachycardic. She is not on anticoagulation per her choice. Further follow up with Dr. Perez to get a pacemaker placed once this infection resolves. DISCHARGE CONDITION: Stable. Blood pressure is 134/65, heart rate 84, respiratory rate 15, O2 sats on room air 93%, temperature is 36.7 Celsius. DISCHARGE MEDICATIONS: Please see the EMR. DISCHARGE INSTRUCTIONS: 1. Please read the detailed wound note. 2. To take the doxycycline for 2-1/2 more days. 3. If she develops fever, chills, chest pain, shortness of breath, return to the ER. Greater than 30 minutes discharging and coordinating the patient's care. /[id number]/MODL MTDD
--- NOTE | 2017-12-03 13:37 | ASMTLACE ---
LACE Length of stay for Answers: 3 days current admission Acuity / Level of Answers: Yes Care: Did the patient have an inpatient admission? Comorbidities - select Answers: Congestive heart failure all that apply Other Notes: Atrial fibrillation; CK D # of Emergency department Answers: 1-2 visits in the last 6 months Score: 10 Date Signed: 12/03/2017 01:37 PM Electronically Signed By:Nathaly Lema RN
--- NOTE | 2017-12-03 13:41 | ASMTCMCOM ---
CM Note CM Note Notes: Spoke w/[facility], pt would like home health RN, CM notified Stacey at [facility] who can accomodate HH RN. Pt is aware she needs to stay at home while receiving hc. DC Plan: Home Care/ [facility] (RN) Date Signed: 12/03/2017 01:40 PM Electronically Signed By:Nathaly Lema RN
--- NOTE | 2017-12-04 17:11 | ASDISCHSUM ---
Discharge Information Plan Status:Home with Home Health Medically Cleared to Leave: Discharge Date:12/03/2017 03:52 PM CM D/C Disposition:Home Health Service ADT D/C Disposition:Home Health Service Projected Discharge Date:12/03/2017 11:00 AM Transportation at D/C:Friend Discharge Delay Reason: Follow-Up Date:12/03/2017 11:00 AM Discharge Slot: Final Diagnosis: Placement Information Referral Type:*Home Health Care Services Referral ID:[id number] Provider Name:[facility] Address 1:[address] [place] [address] Address 2: City:[place] Selection Factors: State:[place] Patient Contact Information Contact Name:SALLY Relationship:Son Address: Work Phone: [facility] Alternate Phone: [facility]/Zip Code:[place] Email: Financial Information Financial Class:Medicare Primary Plan Desc:MEDICARE INPATIENT Primary Plan Number:[id number] Secondary Plan Desc:[employer]ARP/MDR SUPPLEMENT Secondary Plan Number:[id number] Assessment Information LACE LACE Length of stay for Answers: 3 days current admission Acuity / Level of Answers: Yes Care: Did the patient have an inpatient admission? Comorbidities - select Answers: Congestive heart failure all that apply Other Notes: Atrial fibrillation; CK D # of Emergency department Answers: 1-2 visits in the last 6 months Score: 10 Date Signed: 12/03/2017 01:37 PM Electronically Signed By:Nathaly Lema RN [facility] Initial CM Assessment Living Arrangements What is your living Answers: Alone arrangement? Who do you live with? Type Of Residence What kind of residence do Answers: House you live in? Discharge Plan Comments Coordination Status Comments Notes: CM spoke to ISI Lizarraga regarding d/c POC. Pt is a 82 y/o female admitted for cellulitis in the legs. Pt was previously at [facility] on 11/17/17 for the same presentation. Therapies have been ordered and awaiting recommendations. ID is invovled and pt may need ivabx at time of d/c. CM to follow. Plan: TBD Date Signed: 12/01/2017 10:52 AM Electronically Signed By:VINICIO Johnson [facility] CM Progress Note CM Note CM Note Notes: Patient responding well to Vanco treatment. Likely one more day inpatient, then she can transition to oral antibiotics. Therapies recommending home. Case Management available if any discharge needs arise. Date Signed: 12/02/2017 02:10 PM Electronically Signed By:Yamilka Velasquez RN [facility] CM Progress Note CM Note CM Note Notes: Spoke w/BROADCAST ENGINEER, pt would like home health RNVANDANA notified Stacey at [facility] who can accomodate RN. Pt is aware she needs to stay at home while receiving hc. DC Plan: Home Care/ [facility] (RN) Date Signed: 12/03/2017 01:40 PM Electronically Signed By:Nathaly Lema RN Intervention Information Intervention Type:*IM-Signed Date of Service:12/03/2017 12:07 PM Patient Type:Inpatient Staff Member:Maria Alejandra Melendrez Hours: Discipline: Severity: Comment:
== END 2017-12-03 15:52 | disposition home health service (06) | DRG 603 ==
LOC: F3E 17:36
PROVIDERS: ADMIT Internal Medicine; ATTEND Internal Medicine
DX: L03.115 Cellulitis of right lower limb (principal); I50.22 Chronic systolic (congestive) heart failure; J96.11 Chronic respiratory failure with hypoxia; L03.116 Cellulitis of left lower limb; E86.9 Volume depletion, unspecified; I87.2 Venous insufficiency (chronic) (peripheral); R60.9 Edema, unspecified; I48.2 Chronic atrial fibrillation; E03.9 Hypothyroidism, unspecified; N18.9 Chronic kidney disease, unspecified; Z88.0 Allergy status to penicillin; Z86.718 Personal history of other venous thrombosis and embolism; Z95.2 Presence of prosthetic heart valve
CPT/HCPCS: 84484-PO; 97116-GP; 97161-GP; G8978-GP-CJ; G8979-GP-CI; G8980-GP-CI; J1644; J3370

== ENCOUNTER 2017-12-20 12:21 | Inpatient (IN) | payer OTHER, MEDICARE ==
--- NOTE | 2017-12-20 13:26 | EDPHY ---
H & P Time Seen by Provider: 12/20/17 13:22 HPI/ROS: Chief complaint. Ft and legs swollen HPI. 82-year-old female presents emergency department with 4 days of painful losing feet that are swollen and somewhat spreading into her legs. She was admitted November 30 for bilateral leg cellulitis. She tells me that it got better after being in the hospital but has not resolved. She saw a orthopedic shoe maker 2 scraped much of the exfoliating skin off her feet and toes. She then had a zinc oxide wrap. She had no follow-up so she cut the bandages off 4 days ago and her symptoms of her feet are now worse. They are oozing. She can't walk. She notes increased fatigue. No fever. No chest pain, shortness of breath, cough. She does note that she had an elevated heart rate of 155 today. Patient lives by herself. She also notes rash that is itchy to her chest and her back ROS Constitutional. Generalized weakness Eyes. no problems with vision ENT. no sore throat, no nasal drainage Cardiovascular. no chest pain Respiratory. no shortness of breath, no cough Abdominal. no abdominal pain, no nausea/vomiting, no diarrhea . no problems urinating MS. Bilateral foot pain with Skin. Itchy rash to chest and back. Bruising lesions on both feet and between toes Lymph. no swollen glands Neuro. Can't walk Past Medical/Surgical History: Bilateral leg cellulitis, CHF, mitral and bicuspid valve repair, hip replacement , hypothyroid, atrial fibrillation, stage III renal failure, eczema, venous stasis Social History: Single, nonsmoker, no alcohol Smoking Status: Never smoked Physical Exam: General Appearance: Alert well-developed female moderate distress vital signs are stable. She is afebrile Eyes: Pupils equal and round no pallor or injection. ENT, Mouth: Mucous membranes are moist. Respiratory: There are no retractions, lungs are clear to auscultation. Cardiovascular: Regular rate and rhythm. Gastrointestinal: Abdomen is soft and nontender, no masses, bowel sounds normal. Neurological: Awake and alert, sensory and motor exams grossly normal. Skin: Maculopapular rash to chest and back. Bruising lesions both feet and between toes. Evidence of cellulitis Musculoskeletal: Neck is supple nontender. Extremities symmetrical, full range of motion. Psychiatric: Patient is oriented X 3, there is no agitation. Constitutional: Initial Vital Signs Temperature (C) 36.6 C 12/20/17 12:22 Heart Rate 80 12/20/17 12:22 Respiratory Rate 18 12/20/17 12:22 Blood Pressure 109/66 12/20/17 12:22 O2 Sat (%) 97 12/20/17 12:22 O2 Delivery Mode Room Air Allergies/Adverse Reactions: amoxicillin Allergy (Intermediate, Verified 12/20/17 12:22) Rash Iodinated Contrast- Oral and IV Dye Allergy (Verified 12/20/17 12:22) Other-Enter Comments Penicillins Allergy (Verified 12/20/17 12:22) Rash SEASONAL Allergy (Uncoded 11/30/17 16:58) SNEEZING, RUNNY NOSE Home Medications: Medication Instructions Recorded Ascorbic Acid [Vitamin C 500 mg 500 mg PO TID 12/17/15 (*)] Calcitriol [Calcitriol (*)] 0.25 mcg PO WESA 08/31/16 Carvedilol [Coreg (*)] 6.25 mg PO BIDMEAL 08/31/16 Melatonin [Melatonin 3 MG (*)] 3 mg PO HS 08/31/16 Magnesium Oxide [Magnesium Oxide 400 mg PO HS 01/22/17 400 mg (*)] Vitamin B Complex [B Complex] 1 each PO DAILY 01/22/17 Nature-Thyroid 65 mg PO DAILY 11/16/17 Clotrimazole 1% [Lotrimin 1%] 1 naheed TP BID PRN 11/30/17 Diltiazem Cd [Cardizem ER 120 MG 60 mg PO DAILY PRN 11/30/17 (*)] Ethacrynic Acid [Edecrin 25 MG (*)] 25 mg PO DAILY14 PRN 11/30/17 Ethacrynic Acid [Edecrin 25 MG (*)] 50 mg PO DAILY 11/30/17 Herbals/Supplements -Info Only 1 ea PO DAILY 11/30/17 Triamcinolone 0.1% [Triamcinolone 1 naheed TP TID PRN 11/30/17 0.1% Cream (*)] Acetaminophen [Tylenol 325mg (*)] 650 mg PO Q6 PRN tab 12/03/17 Doxycycline Hyclate 100 mg PO BID #5 tab 12/03/17 Medical Decision Making - Diagnostics EKG Interpretation: EKG interpreted by me shows rapid AFib. Left axis deviation. LVH. Ventricular response 131 Imaging Results: Patient declines chest x-ray Procedures: IV normal saline. Sepsis workup. Vancomycin IV after blood cultures Patient refuses vancomycin secondary to concern for allergic reaction as she got a rash last time with her antibiotics in the hospital Patient has not been taking her heart medications. She is given diltiazem 30 mg orally in the emergency department ED Course/Re-evaluation: On re-evaluation patient is stable. Patient and I discussed laboratory evaluation, treatment plan including recommendation for admission. She expresses understanding and agreement I consulted and discussed the case with Dr. Baig, hospitalist, who agrees to the admission Differential Diagnosis: This appears to be cellulitis. She does have a history of CHF and an elevated BNP. She also has atrial fibrillation with a rapid ventricular response and has not been taking medication. No evidence for sepsis. - Data Points Laboratory Results: Laboratory Results 12/20/17 12:50 12/20/17 12:50 12/20/17 12/20/17 12/20/17 13:55 12:50 12:50 WBC 10.22 10^3/uL H 10^3/uL (3.80-9.50) RBC 3.95 10^6/uL L 10^6/uL (4.18-5.33) Hgb 12.6 g/dL g/dL (12.6-16.3) Hct 37.9 % L % (38.0-47.0) MCV 95.9 fL fL (81.5-99.8) MCH 31.9 pg pg (27.9-34.1) MCHC 33.2 g/dL g/dL (32.4-36.7) RDW 14.6 % % (11.5-15.2) Plt Count 190 10^3/uL 10^3/uL (150-400) MPV 9.4 fL fL (8.7-11.7) Neut % (Auto) 81.3 % H % (39.3-74.2) Lymph % (Auto) 7.2 % L % (15.0-45.0) Gray % (Auto) 9.3 % % (4.5-13.0) Eos % (Auto) 1.0 % % (0.6-7.6) Baso % (Auto) 0.8 % % (0.3-1.7) Nucleat RBC Rel Count 0.0 % % (0.0-0.2) Absolute Neuts (auto) 8.31 10^3/uL H 10^3/uL (1.70-6.50) Absolute Lymphs (auto) 0.74 10^3/uL L 10^3/uL (1.00-3.00) Absolute Monos (auto) 0.95 10^3/uL H 10^3/uL (0.30-0.80) Absolute Eos (auto) 0.10 10^3/uL 10^3/uL (0.03-0.40) Absolute Basos (auto) 0.08 10^3/uL 10^3/uL (0.02-0.10) Absolute Nucleated RBC 0.00 10^3/uL 10^3/uL (0-0.01) Immature Gran % 0.4 % % (0.0-1.1) Immature Gran # 0.04 10^3/uL 10^3/uL (0.00-0.10) VBG Lactic Acid 1.4 mmol/L mmol/L (0.7-2.1) Sodium 130 mEq/L L mEq/L (135-145) Potassium 4.1 mEq/L mEq/L (3.3-5.0) Chloride 101 mEq/L mEq/L (97-110) Carbon Dioxide 17 mEq/l L mEq/l (22-31) Anion Gap 12 mEq/L mEq/L (8-16) BUN 28 mg/dL H mg/dL (7-23) Creatinine 1.2 mg/dL H mg/dL (0.6-1.0) Estimated GFR 43 Glucose 139 mg/dL H mg/dL (70-100) Calcium 9.0 mg/dL mg/dL (8.5-10.4) Total Bilirubin 1.7 mg/dL H mg/dL (0.1-1.4) NT-Pro-B Natriuret Pep 3030 pg/mL H pg/mL (0-450) Departure - Departure Disposition: Foottnlls Inpatient Acute Clinical Impression: Abscess or cellulitis of foot Condition: Fair Referrals: NONE *PRIMARY CARE P,. [Primary Care Provider] - As per Instructions
[2017-12-20] MEDS ORDERED: VANCOMYCIN HCL/NORMAL SALINE 250 ML IV ONE (13:38)
[2017-12-20 13:51] LABS: PLATELET COUNT 190 10^3/uL (150-400)
[2017-12-20] MEDS ORDERED: DILTIAZEM 30 MG TAB PO ONE (14:18)
--- NOTE | 2017-12-20 14:21 | CPEKG ---
Heart Rate: 131 RR Interval: 458 QRSD Interval: 136 QT Interval: 360 QTC Interval: 532 QRS [place]: -86 T Wave [place]: 74 EKG Severity - ABNORMAL ECG - EKG Impression: ATRIAL FIBRILLATION, V-RATE 90-161 EKG Impression: NONSPECIFIC IVCD WITH LAD EKG Impression: LEFT VENTRICULAR HYPERTROPHY EKG Impression: ANTERIOR Q WAVES, POSSIBLY DUE TO LVH Electronically Signed By: Yoandy Ceja 20-Dec-2017 15:46:45
[2017-12-20 14:49] LABS: INR 1.12 (0.83-1.16); PROTIME(PATIENT) 14.6 SEC (12.0-15.0)
[2017-12-20] MEDS ORDERED: PROMETHAZINE HCL 25 MG/ML INJ IVP PRN (15:15)
[2017-12-20] MEDS ORDERED: ACETAMINOPHEN 325 MG TAB PO PRN (15:15)
[2017-12-20] MEDS ORDERED: DILTIAZEM CD 120 MG CAP PO PRN (15:19)
[2017-12-20] MEDS: HYDROCODONE/APAP 5/325 TAB PO PRN (17:03)
--- NOTE | 2017-12-20 17:28 | ASMTCMCOM ---
CM Note CM Note Notes: Pt presented to the ED through triage for swollen feet and pain while ambulating. Pt was recently admitted 11/30/17 for bilateral leg cellulitis and discharged home with [facility] RN for wound care; pt was being followed by Dr Oliver w/[facility]. Spoke w/Chantale, RN w/[facility] and she said she opened pt on 12/04 and d/c'd pt on 12/14(?) due to patient driving herself to her podiatry appt w/ Dr Gaines ([phone]) and also pt stated she didn't want HC anymore. Refer to [facility] Reports for additional info. Chantale said she would be willing and able to re-open pt to their HC services if needed. August expressed concern for pt not having enough help at home and thinks pt would benefit from a SNF stay. Pt had also been seen at [facility] on 12/10/17 (seen by Ebony Escamilla) but per August, pt did not want to follow their recommendations such as wearing compression stockings, etc. On 12/17 pt had her friend cut off the zinc oxide dressings Dr Gaines placed on 12/14; since then pt states she has been having increased pain and difficulty ambulating. Pt does not use a walker or cane when ambulating around her house. Pt has a housemate but they do not provide assistance. Pt states she receives help at home w/upkeep, etc. from her senior clinical sas programmer and also her friend/neighbor/MDPNADJA, Ezla. Pt also has a niece, Bryanna. Pt's son, Bryson, lives in [place]. Pt states she has not been taking her medications for the past couple of days because she has been tired, not eating and sleeping a lot. Per chart review, pt is followed by by Dr Perez and Dr Longoria at [facility] and pt has an upcoming appt on 12/24/17 to discuss scheduling her pacemaker surgery. Pt has home oxygen provided by [employer]; pt states she recently received a new concentrator and that she was increased to 3L NC. Pt's PMH include CHF, A-fib, Stage 3 Renal disease (followed by Dr Agarwal), mitral and bicuspid valve repair, hip replacements, venous stasis. Spoke w/ pt briefly about her possibly needing a short term SNF stay in order to heal and eventually return home safely. Pt states she did not have a good experience at [facility] (went in 2011 after hip replacement) but she did like the facility she went to in [place] ([place]?) but she can't remember the name (per chart review, pt was discharged to [facility] facility in [place] back in 2010). Exact DC needs TBD; anticipate either pt needing SNF vs pt return home w/HC (skilled and non-skilled?) and family/friends to assist. CM to follow. Date Signed: 12/20/2017 05:27 PM Electronically Signed By:Neli Avila RN
--- NOTE | 2017-12-20 17:30 | ASMTLACE ---
LEONOR Acuity / Level of Answers: No Care: Did the patient have an inpatient admission? Comorbidities - select Answers: Congestive heart failure all that apply Moderate or severe liver or renal disease Other Notes: A-fib, venous stasis ulcers # of Emergency department Answers: 3-4 visits in the last 6 months Score: 10 Date Signed: 12/20/2017 05:29 PM Electronically Signed By:Neli Avila RN
[2017-12-20] MEDS: CLINDAMYCIN 600 MG/DEXTROSE 50 ML IV SCH (18:35)
[2017-12-20] MEDS: CARVEDILOL 6.25 MG TAB PO SCH (18:36)
[2017-12-20] MEDS: CLOTRIMAZOLE/BETAMET DIPROP 15 GM CRTUBE TP SCH (20:21)
[2017-12-20] MEDS: MELATONIN 3 MG TAB PO SCH (20:21)
[2017-12-20] MEDS: MAGNESIUM OXIDE 400 MG TAB PO SCH (20:21)
--- NOTE | 2017-12-20 23:11 | GHP ---
[f rep st] HISTORY AND PHYSICAL DATE OF ADMISSION: 12/20/2017 CHIEF COMPLAINT: Weakness and pain with walking on feet. HISTORY OF PRESENT ILLNESS: The patient is a 82-year-old female with a past medical history of chron ic systolic heart failure and atrial fibrillation and chronic stasis dermatitis, who had recently bee n admitted earlier this month with bilateral lower extremity wounds. She was discharged with home he alth and had been following up with her route sales specialist, Dr. Gaines, but it sounds like it got progressiv naomi worse over the prior week and presented to the emergency room for further evaluation and treatmen t. Her primary complaint is that it has become increasingly more painful to ambulate with her feet. Her prior cultures had shown methicillin-sensitive Staph aureus as well as Strep pyogenes. The ricarda ent declined vancomycin in the emergency room as she stated this gave her a rash when used earlier month. She also declined a chest x-ray as she states she has not been feeling any shortness of br eath. PAST MEDICAL HISTORY: 1. Chronic systolic heart failure with an estimated ejection fraction at 45%. 2. Atrial fibrillation, permanent. 3. History of mitral valve repair. 4. Chronic hypoxic respiratory failure, on nocturnal oxygen. 5. Pulmonary hypertension. 6. Chronic kidney disease, stage 3, with a baseline creatinine estimated at 1.2. 7. Chronic stasis dermatitis. 8. Chronic anemia. 9. Hypothyroidism. 10. B12 deficiency. PAST SURGICAL HISTORY: 1. Cataract surgery. 2. Bilateral hip replacements. MEDICATIONS: 1. Calcitriol 0.25 mcg weekly. 2. Coreg 6.25 mg twice a day. 3. Diltiazem 60 mg daily as needed for heart rate greater than 110. 4. Ethacrynic acid 75 mg daily. 5. Magnesium oxide 400 mg nightly. 6. Melatonin 3 mg nightly. 7. Nature Thyroid 65 mg daily. 8. Vitamin B12 complex. ALLERGIES: 1. Amoxicillin. 2. Iodinated contrast. 3. Penicillin. FAMILY HISTORY: Brother with history of diabetes mellitus type 2. SOCIAL HISTORY: Patient is currently . She does have one child who lives in [place]. She cu rrently lives with a roommate but states that her roommate does not help her with her medical issues. She is a nonsmoker. She does state that she has a neighbor who has medical power of title attorney who l denzel across the street from her and does help her with her medical issues. REVIEW OF SYSTEMS: CONSTITUTIONAL: No complaints of any fevers or chills. ENT: No complaints of a ny recent upper respiratory illnesses. CARDIOVASCULAR: No complaints of any chest pains, palpitatio ns, or syncopal episodes. RESPIRATORY: No complaints of any shortness of breath or productive cough . GI: No nausea, vomiting, diarrhea, or constipation. : No report of any difficulty with urinat ion. NEUROLOGIC: No complaints of headaches or focal weakness. HEMATOLOGIC: No history of any nathalie p vein thrombosis or pulmonary embolism. PSYCHIATRIC: No history of anxiety or depression. ENDOCRI NE: No polyuria or heat intolerance. SKIN: Other than her lower extremities, no new skin rashes or skin complaints. MUSCULOSKELETAL: No focal joint pains or swelling. PHYSICAL EXAM: VITAL SIGNS: Temperature 36.6, blood pressure 109/66, heart rate 80, respirations 18 , saturating 97% on room air. GENERAL: Patient awake, alert, conversant, oriented, no acute distres s, able to provide a good history. HEENT: Extraocular movements intact. No scleral icterus is note d. NECK: Supple. No thyroid enlargement noted. CHEST: Clear to auscultation with normal respirat ory effort. HEART: Irregular. No systolic murmur appreciated. ABDOMEN: Soft, nontender, nondiste nded. : No Mccrary catheter in place. EXTREMITIES: 1+ edema both lower extremities. She has open skin between multiple toes on both left and right feet. There is crusting of the skin as well bilat erally along the toes and dorsal aspect of each foot. There is a malodor noted in between the toes o n both feet, and there is an area of erythema which extends up to the left knee. The erythema is not as prominent on the right leg as compared to the left. She does have bilateral inguinal lymphadenop athy which is enlarged and tender. NEUROLOGIC: Cranial nerves 2-12 grossly intact with 5/5 strength in extremities. LABS: White blood cell count is 10, hemoglobin 12, platelets 190. Sodium 130, potassium 4.1, chlori de 101, bicarb 17, BUN 28, creatinine 1.2, glucose of 139. Lactic acid 1.4. BNP 3030. Bilirubin 1. 7. ASSESSMENT/PLAN: 1. Cellulitis: Suspecting cellulitis likely of both lower extremities, but it appears to be more ex tensive in the left lower extremity with erythema extending up to the level of the knee. Recent cult ures of her skin of the lower extremities were notable for methicillin-sensitive Staphylococcus aureu s as well as Streptococcus pyogenes. In the emergency room, she has declined vancomycin, stating she had a rash with this earlier in the month. I recommend that we start her on clindamycin, which woul d be acceptable considering her penicillin allergies as well. 2. Stasis dermatitis: This may also be complicated by concurrent tinea pedis. I recommend using a combination of antifungal as well as steroidal cream to address both these issues. Wound care consul t also placed. 3. Atrial fibrillation with rapid ventricular response: Patient was noted to have a heart rate in t he 130s in the emergency room. She was given an extra dose of oral diltiazem per her normal routine. On exam, her heart rate was improved to less than 100. We will continue with her twice a day beta dawit as well. 4. Hyponatremia: This may be secondary to her diuretic use. I recommend we hold this overnight and reassess again tomorrow. Considering her low ejection fraction, we will hold off on administration of intravenous fluids at this point in time. 5. Chronic systolic heart failure: She does not appear to be volume overloaded currently. We will continue with medical management including Coreg 6.25 mg twice a day. We will hold diuretic therapy for now. 6. Atrial fibrillation: Continue Coreg for rate control. Patient is not anticoagulated per her ricarda ires. 7. Chronic hypoxic respiratory failure: Patient is on nocturnal oxygen. 8. Pulmonary hypertension: She does have a history of right-sided heart failure mentioned in her re cords. 9. Chronic kidney disease, stage 3: Her baseline creatinine is listed at 1.2, where she is at today . 10. Anemia, chronic, likely secondary to chronic disease processes: Her baseline creatinine appears to run from 10 to 12. She is at 12 today. 11. Hypothyroidism: Continue with current thyroid replacement. 12. B12 deficiency: Continue current B complex daily. 13. Deep venous thrombosis prophylaxis: Heparin. DISPOSITION: Patient is a full code status. We will admit her under observation at this point in ti me. Infectious Disease has been involved with her care recently, so I have placed a consult for alyse timargot recommendations regarding antibiotic selection. /[id number]/MODL
[2017-12-21] MEDS: CLINDAMYCIN 600 MG/DEXTROSE 50 ML IV SCH ×2 (02:18→10:13)
[2017-12-21 04:40] LABS: PLATELET COUNT 156 10^3/uL (150-400)
[2017-12-21] MEDS: HEPARIN 5,000 UNIT/0.5 ML INJ SC SCH ×4 (05:03→22:33)
[2017-12-21] MEDS ORDERED: ENOXAPARIN 30 MG/0.3 ML SYR SC SCH (09:00)
[2017-12-21] MEDS ORDERED: NATURE THYROID 65 MG PO SCH (09:00)
[2017-12-21] MEDS: VITAMIN B COMPLEX 1 EA CAP/TAB PO SCH (10:16)
[2017-12-21] MEDS: CARVEDILOL 6.25 MG TAB PO SCH ×2 (10:16→18:57)
--- NOTE | 2017-12-21 11:19 | PCMIDPN ---
Assessment/Plan: Assessment/Plan: * Recurrent left lower extremity cellulitis: Clinical findings most compatible with recurrent left lower extremity cellulitis although appearance slightly atypical around knee. Sharp demarcation suggestive of Beta-hemolytic streptococci as etiology. Prior cultures from toe showed growth of both MSSA and group A Streptococcus. Patient continues to have significant lichenification and fissuring with some purulent drainage and foul odor from feet. Given increased resistance rates of group A Streptococcus to clindamycin , will change clindamycin to cefazolin. Patient describes to me today that prior amoxicillin allergy was rash and itching. Continue leg elevation. Repeat wound care evaluation. 12/21/17 11:14 12/21/17 11:21 Subjective: Patient known to me from recent hospital admissions for left lower extremity cellulitis. Patient noted increasing fatigue, subjective fever and chills over preceding weekend followed by development of increasing erythema in left lower leg up to knee. This was associated with increased pain in both feet bilaterally. Patient describes having podiatry follow-up with Dr. Gaines and applying wraps to her feet. She denies any other exposure of feet to soaks or other topical therapies. Patient was started on clindamycin at time of presentation based on itching previously with vancomycin (mild) and now complains of itching with clindamycin as well. Objective: Vital Signs Temp Pulse Resp BP Pulse Ox 36.9 C 89 16 118/83 H 92 12/21/17 07:15 12/21/17 07:15 12/21/17 07:15 12/21/17 07:15 12/21/17 07:15 Laboratory Results 12/21/17 04:00 12/21/17 04:00 12/20/17 12/21/17 12/22/17 05:59 05:59 05:59 Intake Total 680 Output Total 50 Balance 680 -50 Clindamycin # 1 Blood cultures x2 pending Foot culture 12/01/2017 MSSA, group A Streptococcus - Physical Exam General Appearance: alert, no apparent distress EENT: No scleral icterus Extremities: inflammation (Bilateral venous insufficiency changes; left lower extremity has sharply demarcated bright erythema around knee and upper rojas which is warm and tender; no bulla) Abdomen: non-tender, No distended Skin: rash (Bilateral feet with lichenification and fissuring with some purulent drainage from web spaces with foul odor) Lymphatic: adenopathy (Bilateral inguinal adenopathy present) ICD10 Worksheet Patient Problems: Problems Problem Status Onset Abscess or cellulitis of foot Acute Transient ischemic attack Active Atrial fibrillation Acute CHF (congestive heart failure) Acute CHF exacerbation Acute Cellulitis Acute Chronic Disease Mgmt/Transitional Care Acute Leg edema Acute Malaise Acute Skin rash Acute Wide-complex tachycardia Acute
[2017-12-21] MEDS: HYDROCODONE/APAP 5/325 TAB PO PRN (11:32)
--- NOTE | 2017-12-21 11:57 | ASMTCMCOM ---
CM Note CM Note Notes: Discussed patient in rounds. She lives with a roommate . Has wounds o her feet. Wound care eval pending. Adjusting medications for afib. CM to follow. Plan:TBD Date Signed: 12/21/2017 11:51 AM Electronically Signed By:Adry Watters RN
[2017-12-21] MEDS: CLOTRIMAZOLE/BETAMET DIPROP 15 GM CRTUBE TP SCH ×2 (13:13→22:30)
[2017-12-21] MEDS: THYROID 60 MG TAB PO SCH (13:13)
[2017-12-21] MEDS ORDERED: DILTIAZEM 60 MG TAB PO PRN (15:00)
--- NOTE | 2017-12-21 17:01 | HOSPPROG ---
Hospitalist Progress Note Assessment/Plan: 82yo F with recurrent LE cellulitis, chronic venous stasis, permanent atrial fibrillation, mitral valve repair, chronic CHF who presents with worsening LLE erythema consistent with cellulitis. #LLE non-purulent cellulitis: Not septic. Concern for Strep species (beta- hemolytic based on appearance) although prior cultures have grown MSSA. ID consulted, switching clindamycin to cephazolin. Continue leg elevation and wound care. #Atrial fibrillation with RVR: Difficult to control in past. Dr Perez had been planning ablate and pace strategy once infection is controlled. Intermittently tachycardic. Will continue beta dawit as well as PRN diltiazem 60mg q6h for sustained HR>110. Fortunately, she is grossly asymptomatic with these elevated heart rates. She is not anticoagulated per her wishes. #Chronic CHF: Not decompensated. Her diuretics were held on admission but we will restart those. Also on BB as above. #Chronic hypoxemic respiratory insufficiency: She is on nocturnal oxygen. #CKD, stage 3: She is at her baseline serum creatinine of ~1.2. #Hyponatremia: Na low 130s. Will monitor with restart of diuretics as these may be the culprit. #Hypothyroid: Continue thyroid replacement. #Anemia: Chronic, likely chronic disease. No e/o bleeding and H/H at baseline. VTE ppx: SQH Diet: cardiac Code; FCFT Disposition: to remain inpatient for administration of IV antibiotics Subjective: Feeling well this morning except for itching in legs. Minimally notices elevated HR (palpitations) but no chest discomfort, shortness of breath , dizziness. Objective: Vital Signs Temp Pulse Resp BP Pulse Ox 36.9 C 82 18 110/66 96 12/21/17 16:00 12/21/17 16:00 12/21/17 16:00 12/21/17 16:00 12/21/17 16:00 12/20/17 12/21/17 12/22/17 05:59 05:59 05:59 Intake Total 880 Balance 880 PT 14.6 SEC (12.0-15.0) 12/20/17 14:27 INR 1.12 (0.83-1.16) 12/20/17 14:27 - Physical Exam Constitutional: no apparent distress, appears nourished, not in pain Eyes: PERRL, anicteric sclera, EOMI Ears, Nose, Mouth, Throat: moist mucous membranes, hearing normal, ears appear normal, no oral mucosal ulcers Cardiovascular: irregularly irregular, tachycardia, edema (chronic appearing edematous changes to BLE), No JVD Respiratory: no respiratory distress, other (mild bibasilar crackles, good air movement) Gastrointestinal: normoactive bowel sounds, soft, non-tender abdomen, no palpable masses Skin: erythema (Demarcated area over left rojas extending up to knee, non- purulent. ), other (fissuring between toes on feet with non-purulent discharge and malodor) Musculoskeletal: full muscle strength, no muscle tenderness, normal joint ROM Neurologic: AAOx3, sensation intact bilaterally Psychiatric: interacting appropriately, not anxious, not encephalopathic, thought process linear ICD10 Worksheet Patient Problems: Problems Problem Status Onset Abscess or cellulitis of foot Acute Transient ischemic attack Active Atrial fibrillation Acute CHF (congestive heart failure) Acute CHF exacerbation Acute Cellulitis Acute Chronic Disease Mgmt/Transitional Care Acute Leg edema Acute Malaise Acute Skin rash Acute Wide-complex tachycardia Acute
[2017-12-21] MEDS: MAGNESIUM OXIDE 400 MG TAB PO SCH (22:14)
[2017-12-21] MEDS: MELATONIN 3 MG TAB PO SCH (22:14)
[2017-12-21] MEDS: METOPROLOL TARTRATE 5 MG/5 ML INJ IVP SCH ×2 (22:15→23:20)
[2017-12-21] MEDS: diphenhydrAMINE 25 MG CAP PO PRN (23:15)
[2017-12-22] MEDS: HEPARIN 5,000 UNIT/0.5 ML INJ SC SCH ×3 (01:48→23:37)
[2017-12-22 04:44] LABS: PLATELET COUNT 171 10^3/uL (150-400)
[2017-12-22] MEDS: METOPROLOL TARTRATE 5 MG/5 ML INJ IVP SCH (06:36)
--- NOTE | 2017-12-22 09:16 | PDMN ---
Medical Necessity Medical necessity: Pt meets inpt criteria per MD order and MCG M-70, Cellulitis. Pt admitted w/worsening LLE erythema sec to recurrent cellulitis, tachycardia, comorbid conditions chronic CHF, chronic kidney disease, chronic hypoxemic resp insufficiency, afiv, chronic anemia, adv age. ID consult, wound care consult, IV ABX's, IV Lopressor, PT/OT. Change to inpt as of 12/21/17 @ 14: 20 for ongoing eval and management of cellulitis and other medical issues. Change to inpt as of 12/21/17 @ 14:20 for ongoing eval and management of cellulitis and other medical issues.
[2017-12-22] MEDS: VITAMIN B COMPLEX 1 EA CAP/TAB PO SCH (09:28)
[2017-12-22] MEDS: ETHACRYNIC ACID 25 MG TAB PO SCH (09:29)
[2017-12-22] MEDS: THYROID 60 MG TAB PO SCH (09:33)
[2017-12-22] MEDS: CLOTRIMAZOLE/BETAMET DIPROP 15 GM CRTUBE TP SCH (09:35)
[2017-12-22] MEDS ORDERED: DILTIAZEM CD 120 MG CAP PO SCH (12:00)
--- NOTE | 2017-12-22 12:40 | HOSPPROG ---
Hospitalist Progress Note Assessment/Plan: 82yo F with recurrent LE cellulitis, chronic venous stasis, permanent atrial fibrillation, mitral valve repair, chronic CHF who presents with worsening LLE erythema consistent with cellulitis. #LLE non-purulent cellulitis: Not septic, stable erythema on exam. Concern for Strep species (beta-hemolytic based on appearance). ID following. Continue cefazolin. Continue leg elevation and wound care. #Atrial fibrillation with RVR: Remains tachycardic to 140s but asymptomatic and BP stable. We are pursuing a rate control strategy. Discontinue PRN diltiazem and start diltiazem XR 120mg daily, may need to uptitrate if HR>110. She is not anticoagulated per her wishes. Followed by Dr Perez who is considering ablate/ pace once stable from infection. #Bilateral foot fungal infection: Trial anti-fungal cream. Likely portal of entry for #1. #Chronic CHF: Not decompensated. Continue home ethacrynic acid. Not on BB. #Chronic hypoxemic respiratory insufficiency: She is on nocturnal oxygen. This is stable. #CKD, stage 3: She is at her baseline serum creatinine of ~1.2. #Hyponatremia: Na low 130s, now 134. Monitor while on diuretics. #Hypothyroid: Continue thyroid replacement. #Anemia: Chronic, likely chronic disease. No e/o bleeding and H/H at baseline. VTE ppx: SQH Diet: regular Code; FCFT Disposition: to remain inpatient for administration of IV antibiotics and rate control of afib w/rvr Subjective: Slept well last night. Doesn't notice high HR. No fevers or chills. Having more pain in feet today but less itching. Objective: Vital Signs Temp Pulse Resp BP Pulse Ox 36.8 C 139 H 16 130/96 H 93 12/22/17 08:00 12/22/17 08:00 12/22/17 08:00 12/22/17 08:00 12/22/17 08:00 Laboratory Results 12/22/17 04:01 12/22/17 04:01 12/21/17 12/22/17 12/23/17 05:59 05:59 05:59 Intake Total 2455 Output Total 400 Balance 2055 PT 14.6 SEC (12.0-15.0) 07/29/18 14:27 INR 1.12 (0.83-1.16) 12/20/17 14:27 - Physical Exam Constitutional: no apparent distress, appears nourished, not in pain Eyes: PERRL, anicteric sclera, EOMI Ears, Nose, Mouth, Throat: moist mucous membranes, hearing normal, ears appear normal, no oral mucosal ulcers Cardiovascular: irregularly irregular, tachycardia, edema (1+ BLE pitting edema to mid-rojas), No JVD Respiratory: no respiratory distress, no rales or rhonchi, clear to auscultation Gastrointestinal: normoactive bowel sounds, soft, non-tender abdomen, no palpable masses Skin: erythema (sharp demarcated area around right knee), other (significant fissuring/xerosis of bilateral feet mostly surrounding toes with dried blood and malodor) Neurologic: AAOx3, sensation intact bilaterally Psychiatric: interacting appropriately, not anxious, not encephalopathic, thought process linear ICD10 Worksheet Patient Problems: Problems Problem Status Onset Transient ischemic attack Active CHF (congestive heart failure) Acute Atrial fibrillation Acute Chronic Disease Mgmt/Transitional Care Acute CHF exacerbation Acute Malaise Acute Wide-complex tachycardia Acute Skin rash Acute Leg edema Acute Cellulitis Acute Abscess or cellulitis of foot Acute
--- NOTE | 2017-12-22 14:42 | PCMIDPN ---
Assessment/Plan: # LLE cellulitis, seems to be resolved today, tolerating renal dose cefazolin 1gm IV q12 for CrCl in 30s. Prior cultures from toe showed growth of both MSSA and group A Streptococcus. By report it is improving. --continue renal dose cefazolin, hopeful to DC on PO Keflex # lichenification and fissuring with foul odor from feet B- unclear etiology. No drainage noted on my exam today # Elevated HR due to AF meds cefazolin 1gm IV q12h Subjective: patient wondering what is causing her recurrent foot problems denies rash, diarrhea Objective: Vital Signs Temp Pulse Resp BP Pulse Ox 36.7 C 139 H 12 111/88 H 94 12/22/17 12:00 12/22/17 12:00 12/22/17 12:00 12/22/17 12:00 12/22/17 12:00 Laboratory Results 12/22/17 04:01 12/22/17 04:01 12/21/17 12/22/17 12/23/17 05:59 05:59 05:59 Intake Total 2455 Output Total 400 Balance 2055 AF General Appearance: alert, no apparent distress, non-toxic EENT: normal ENT inspection, No scleral icterus, No thrush Extremities: mild LE edema, mild erythematous patch over left knee and mild tenderness Abdomen: non-tender Skin: lichenification of plantar aspect of feet, fissure decreased. Odor present , no purulence. Neuro/Psych: alert, normal mood/affect ICD10 Worksheet Patient Problems: Problems Problem Status Onset Transient ischemic attack Active Abscess or cellulitis of foot Acute Atrial fibrillation Acute CHF (congestive heart failure) Acute CHF exacerbation Acute Cellulitis Acute Chronic Disease Mgmt/Transitional Care Acute Leg edema Acute Malaise Acute Skin rash Acute Wide-complex tachycardia Acute
[2017-12-22] MEDS ORDERED: METOPROLOL TARTRATE 5 MG/5 ML INJ IVP ONE (15:47)
[2017-12-22] MEDS: TRIAMCINOLONE 0.1% 15GM OINT TP SCH (17:13)
[2017-12-22] MEDS: MAGNESIUM OXIDE 400 MG TAB PO SCH (22:29)
[2017-12-22] MEDS: MELATONIN 3 MG TAB PO SCH (22:30)
[2017-12-23] MEDS: CLOTRIMAZOLE/BETAMET DIPROP 15 GM CRTUBE TP SCH ×3 (02:03→22:42)
[2017-12-23] MEDS: HEPARIN 5,000 UNIT/0.5 ML INJ SC SCH ×2 (02:04→14:37)
[2017-12-23] MEDS: TRIAMCINOLONE 0.1% 15GM OINT TP SCH ×4 (02:04→22:43)
[2017-12-23] MEDS: THYROID 60 MG TAB PO SCH (10:14)
[2017-12-23] MEDS: DILTIAZEM CD 180 MG CAP PO SCH (10:14)
[2017-12-23] MEDS: ETHACRYNIC ACID 25 MG TAB PO SCH (10:15)
[2017-12-23] MEDS: VITAMIN B COMPLEX 1 EA CAP/TAB PO SCH (10:15)
[2017-12-23] MEDS ORDERED: diphenhydrAMINE 25 MG CAP PO PRN (10:30)
[2017-12-23] MEDS ORDERED: METOPROLOL TARTRATE 5 MG/5 ML INJ IVP ONE (10:30)
[2017-12-23] MEDS: CETIRIZINE 10 MG TAB PO SCH (11:23)
--- NOTE | 2017-12-23 11:57 | PCMIDPN ---
Assessment/Plan: Assessment/Plan: * Recurrent left lower extremity cellulitis: Significant clinical improvement since last visit. Small patch of residual cellulitis over left knee. Tolerating cefazolin other than associated pruritis. Continue cefazolin and lower extremity elevation. Continued local skin care for significant lichenification of feet which is decreasing with time. 12/23/17 14:59 Subjective: 82 y/o F sitting up in her chair reading, presents for follow-up evaluation of LLE cellulitis. When asked about how her legs are doing she states, not great, but lets take a look. Elevating her BLE alleviates her sx. Reports associated general itchiness from abx. Denies associated diarrhea or abd pain. IYaritza, am scribing for, and in the presence of, Dr. Yoandy Oliver. I, Dr. Yoandy Oliver, personally performed the services described in this documentation, as scribed by Yaritza Du in my presence, and it is both accurate and complete. Objective: Vital Signs Temp Pulse Resp BP Pulse Ox 36.6 C 140 H 14 143/94 H 90 L 12/23/17 08:00 12/23/17 08:00 12/23/17 08:00 12/23/17 08:00 12/23/17 08:00 Laboratory Results 12/22/17 04:01 12/23/17 03:20 12/22/17 12/23/17 12/24/17 05:59 05:59 05:59 Intake Total 2455 1650 Output Total 400 950 Balance 2055 700 cefazolin 1gm IV q12 # 3 cultures previously grew MSSA and group A Streptococcus - Physical Exam General Appearance: alert, no apparent distress, non-toxic EENT: normal ENT inspection, No scleral icterus, No thrush Extremities: other (marked decrease in LE edema, erythematous patch over left knee without change in size or intensity, with mild tenderness ) Abdomen: non-tender Skin: other (Decreasing lichenification of plantar aspect of feet, fissure decreased. Odor presents, but less prominant, no purulence.) Neuro/Psych: alert, normal mood/affect ICD10 Worksheet Patient Problems: Problems Problem Status Onset Abscess or cellulitis of foot Acute Transient ischemic attack Active Atrial fibrillation Acute CHF (congestive heart failure) Acute CHF exacerbation Acute Cellulitis Acute Chronic Disease Mgmt/Transitional Care Acute Leg edema Acute Malaise Acute Skin rash Acute Wide-complex tachycardia Acute
--- NOTE | 2017-12-23 12:52 | HOSPPROG ---
Hospitalist Progress Note Assessment/Plan: 82yo F with recurrent LE cellulitis, chronic venous stasis, permanent atrial fibrillation, mitral valve repair, chronic CHF who presents with worsening LLE erythema consistent with cellulitis. #Atrial fibrillation with RVR: Remains tachycardic to 140s but asymptomatic and BP stable. We are pursuing a rate control strategy. Increase long-acting diltiazem 120->180mg daily. Given additional 5mg IV metoprolol now. If not improving, consider adding beta dawit. She is not anticoagulated per her wishes. Followed by Dr Perez who is considering ablate/pace once stable from infection. #LLE non-purulent cellulitis: Not septic, stable erythema on exam. Concern for Strep species (beta-hemolytic based on appearance). ID following. Continue cefazolin for now. Pending ID recs whether switch to PO. Continue leg elevation and wound care. #Bilateral foot fungal infection: Trial anti-fungal cream. Likely portal of entry for #1. #Chronic CHF: Mild volume overload. Continue home ethacrynic acid. Not on BB. #Chronic hypoxemic respiratory insufficiency: She is on nocturnal oxygen. This is stable. #CKD, stage 3: She is at her baseline serum creatinine of ~1.2. #Hyponatremia: Na low 130s, now improved. Monitor while on diuretics. #Hypothyroid: Continue thyroid replacement. #Anemia: Chronic, likely chronic disease. No e/o bleeding and H/H at baseline. VTE ppx: SQH Diet: regular Code; FCFT Disposition: to remain inpatient for administration of IV antibiotics and rate control of afib w/rvr with intermittent IV beta blockers Subjective: Was kept awake by itching last night. She thinks it's from the IV antibiotics. Pain in legs a little better. No fevers. No shortness of breath or chest pain or palpitations. Objective: Vital Signs Temp Pulse Resp BP Pulse Ox 36.9 C 138 H 16 140/98 H 92 12/23/17 12:00 12/23/17 12:00 12/23/17 12:00 12/23/17 12:00 12/23/17 12:00 Laboratory Results 12/22/17 04:01 12/23/17 03:20 12/22/17 12/23/17 12/24/17 05:59 05:59 05:59 Intake Total 2455 1650 Output Total 400 950 650 Balance 2054 700 -650 PT 14.6 SEC (12.0-15.0) 12/20/17 14:27 INR 1.12 (0.83-1.16) 12/20/17 14:27 - Physical Exam Constitutional: no apparent distress, appears nourished, not in pain Eyes: PERRL, anicteric sclera, EOMI Ears, Nose, Mouth, Throat: moist mucous membranes, hearing normal, ears appear normal, no oral mucosal ulcers Cardiovascular: JVD (+hepatojugular reflux), tachycardia, edema (1+ BLE pitting edema to just above ankles) Respiratory: no respiratory distress, other (mild bibasailar crackles) Gastrointestinal: normoactive bowel sounds, soft, non-tender abdomen, no palpable masses Skin: erythema (demarcated area of erythema on left knee), other (significant xerosis and fissuring of bilateral feet/toes) Neurologic: AAOx3, sensation intact bilaterally Psychiatric: interacting appropriately, not anxious, not encephalopathic, thought process linear Lymph, Heme, Immunologic: other (small bruises on bilateral medial thighs) ICD10 Worksheet Patient Problems: Problems Problem Status Onset Abscess or cellulitis of foot Acute Transient ischemic attack Active Atrial fibrillation Acute CHF (congestive heart failure) Acute CHF exacerbation Acute Cellulitis Acute Chronic Disease Mgmt/Transitional Care Acute Leg edema Acute Malaise Acute Skin rash Acute Wide-complex tachycardia Acute
--- NOTE | 2017-12-23 14:45 | CPEKG ---
Heart Rate: 139 RR Interval: 432 QRSD Interval: 134 QT Interval: 360 QTC Interval: 548 QRS Echo: 266 T Wave Echo: 79 EKG Severity - ABNORMAL ECG - EKG Impression: WIDE COMPLEX TACHYCARDIA EKG Impression: NONSPECIFIC IVCD WITH LAD Electronically Signed By: Monica George 23-Dec-2017 16:12:30
[2017-12-23] MEDS ORDERED: CALCITRIOL 0.25 MCG CAP PO SCH (15:19)
--- NOTE | 2017-12-23 15:39 | ASMTCMCOM ---
CM Note CM Note Notes: 12/23/2017 Case Management Note Met w/pt during rounds this morning. Pt currently being treated for rapid afib. Discussed with PT. PT recommending home care. Pt may need IV antibiotics upon discharge, will follow ID notes for instructions. Case Management d/c poc: to be determined. Case Management to follow. Date Signed: 12/23/2017 03:39 PM Electronically Signed By:Nanette Lawrence RN
--- NOTE | 2017-12-23 16:56 | WOCRNPDOC ---
WOCRN Advanced Assessment Note - Skin Integrity Problem, Advanced Assess Bilateral Foot Unknown Dressing Type: Adaptic Touch, Mepilex, Open to Air Exudate Amount: Minimal Exudate Color: Reddish/Yellow Exudate Characteristic(s): Serosanguinous Integumentary Issue Intervention: Dressing Removed Lana Wound Tissue: Hemosiderin Staining, Venous Dermatitis, Painful/Tender, Hyperkeratotic Site Odor: Strong, Musky, Foul Extremity Temperature: Warm Skin Integrity Problem Comment: Bilateral feet have venous stasis dermatitis with 10+ small wounds on each foot (less than 0.5x0.5 cm each). Hyperkeratotic with large amount of flaky skin that peels off. There are multiple fissures, the largest one is on the plantar surface of the left foot just below the great toe. This will need to have Silvasorb wound gel and a mepilex non-bordered foam placed on it. Otherwise patient's feet just need to be cleaned daily and have atractain lotion applied BID. Provided patient with education on the need to see a machine made shoe unit worker on a routine basis as a preventative measure to keep her feet from getting to this point. Patient stated she likes to wear sandals during the summer. Patient was educated on the need to wear socks and close toed shoes year round to prevent injury to her feet, including when at home. Instructed patient that she needs to clean her feet every day to help remove the hyperkeratotic skin and to apply atractain lotion to both feet twice daily. DP pulses 2+, mild edema noted to feet. Wound care will round again next week. Danielle ABRAHAM in room for care.
[2017-12-23] MEDS: CARVEDILOL 6.25 MG TAB PO SCH (17:45)
[2017-12-23] MEDS: MAGNESIUM OXIDE 400 MG TAB PO SCH (21:19)
[2017-12-23] MEDS: MELATONIN 3 MG TAB PO SCH (21:19)
[2017-12-23] MEDS: diphenhydrAMINE 25 MG CAP PO PRN (21:20)
[2017-12-24] MEDS: HEPARIN 5,000 UNIT/0.5 ML INJ SC SCH ×2 (01:04→04:47)
[2017-12-24] MEDS: CARVEDILOL 6.25 MG TAB PO SCH ×2 (09:40→16:58)
[2017-12-24] MEDS: THYROID 60 MG TAB PO SCH (09:40)
[2017-12-24] MEDS: CETIRIZINE 10 MG TAB PO SCH (10:16)
[2017-12-24] MEDS: DILTIAZEM CD 180 MG CAP PO SCH (10:16)
[2017-12-24] MEDS: ETHACRYNIC ACID 25 MG TAB PO SCH (10:17)
[2017-12-24] MEDS: VITAMIN B COMPLEX 1 EA CAP/TAB PO SCH (10:18)
[2017-12-24] MEDS: TRIAMCINOLONE 0.1% 15GM OINT TP SCH ×3 (10:19→20:50)
[2017-12-24] MEDS: CLOTRIMAZOLE/BETAMET DIPROP 15 GM CRTUBE TP SCH (10:19)
--- NOTE | 2017-12-24 11:37 | GCON ---
[f rep st] CONSULTATION CARDIOLOGY CONSULTATION CHIEF COMPLAINT: Atrial fibrillation, cardiomyopathy. HISTORY OF PRESENT ILLNESS: This is an 82-year-old female who was admitted on 12/20/2017 with compla ints of lower extremity swelling, pain, and ulcerations. The patient has a history of chronic lower extremity cellulitis. The patient also has a history from a cardiovascular perspective of cardiomyop athy, atrial fibrillation. Of note, the patient, despite her atrial fibrillation, has refused any ty pe of oral anticoagulation therapy in the past. She currently is being seen secondary to the fact th at her heart rate in the 130s with atrial fibrillation and RVR. She denies any chest pain or shortne ss of breath at rest. Her main complaints consist of issues with her lower extremity ulcerations. B lood pressure, heart rate are currently stable. Of note, the patient was scheduled to have an AV nod e ablation with permanent pacemaker placement as an outpatient. However, given her chronic infection s, this has been on hold until she has been cleared by ID. Otherwise, the patient does not have any other acute cardiovascular complaints. She denies, at this point, feeling any palpitations. PAST MEDICAL HISTORY: Significant for cardiomyopathy, atrial fibrillation, mitral valve repair, COPD on nocturnal oxygen, chronic kidney disease, chronic stasis dermatitis with lower extremity ulcerati ons, anemia, hypothyroidism. PAST SURGICAL HISTORY: Significant for cataract surgery, hip replacements. HOME MEDICATIONS: Consist of calcitriol, Coreg 6.25 b.i.d., diltiazem 60 p.o. daily, ethacrynic acid , magnesium oxide, thyroid, vitamin B12. ALLERGIES: Amoxicillin, iodinated contrast, and penicillin. FAMILY HISTORY: Significant for diabetes in a brother. SOCIAL HISTORY: Patient nonsmoker. No drinking. REVIEW OF SYSTEMS: 10-point review of systems negative other than what is mentioned in the HPI. PHYSICAL EXAMINATION: VITAL SIGNS: The patient is currently afebrile 98.6, blood pressure is 130/70 , with a heart rate of 132, respirations 12, sat 95% on 2 L nasal cannula. HEENT: Pupils equal, rou nd, reactive to light and accommodation. Extraocular muscles intact. There was no thyromegaly. CAR DIOVASCULAR: Irregularly irregular S1, S2. Soft 2/6 systolic murmur heard best at the right upper s ternal border. LUNGS: Decreased breath sounds at the bases. ABDOMEN: Soft, nontender. No guardin g. EXTREMITIES: There is lower extremity venous stasis noted bilaterally with no clubbing or cyanos is. SKIN: Warm with the aforementioned lower extremity venous stasis. NEUROLOGIC: The patient danni rt x3. PSYCHIATRY: No change in mentation noted. LABORATORY VALUES: Show a white cell 5.6, hemoglobin 10.2, hematocrit 30.7, platelet count 176, INR 1.1. Creatinine 1.1, BUN 34. ASSESSMENT/PLAN: Atrial fibrillation with rapid ventricular response. At this time, we agree with t he initiation of Cardizem CD 180 mg p.o. daily. Additionally, we can increase her Coreg from 6.25 tw ice daily to 12.5 twice daily. If needed the Cardizem CD can be increased to 240 mg p.o. daily. Add itionally, digoxin would be another potential agent if needed. The patient adamantly refuses any ant icoagulation therapy and this was discussed in the presence of her RN as well. I explained to the aguilar paulino that while in-house we can certainly place her on a heparin drip given her history of chronic a trial fibrillation and possible left atrial thrombus. She again does not want any anticoagulation th erapy past aspirin and even refusing her heparin subcu for DVT prophylaxis. We will continue with me dical therapy at this time and continue to follow along. /[id number]/MODL
--- NOTE | 2017-12-24 11:41 | PCMIDPN ---
Assessment/Plan: Assessment/Plan: * Recurrent left lower extremity cellulitis: Continued slow clinical improvement but incomplete resolution of cellulitis over knee. Lower extremity edema has decreased significantly. Patient tolerating cefazolin although associated with pruritis which she is managing currently. Appearance of feet and lichenification also improving with time and care of skin. Continue lower extremity elevation and cefazolin with continued monitoring over time. Hope she may be able to transition to oral antibiotic therapy over next 24-48 hours. 12/24/17 19:07 Subjective: When asked about how her legs are doing today she states, better than yesterday , I went for a walk this morning and my feet didnt hurt quite as much. Still reports associated BLE itchiness tx with Benadryl with moderate relief. Denies associated diarrhea. Notes that she wants to get home by this Thursday as she has a group coming to her home. I, Yaritza Du, am scribing for, and in the presence of, Dr. Yoandy Oliver. I, Dr. Yoandy Oliver, personally performed the services described in this documentation, as scribed by Yaritza Du in my presence, and it is both accurate and complete. Objective: Vital Signs Temp Pulse Resp BP Pulse Ox 36.7 C 105 H 12 126/88 H 92 12/24/17 08:00 12/24/17 08:00 12/24/17 08:00 12/24/17 08:00 12/24/17 08:00 Laboratory Results 12/24/17 03:38 12/24/17 03:38 12/23/17 12/24/17 12/25/17 05:59 05:59 05:59 Intake Total 1650 470 Output Total 950 1150 Balance 700 -680 cefazolin 1gm IV q12 # 4 cultures previously grew MSSA and group A Streptococcus - Physical Exam General Appearance: alert, no apparent distress EENT: other (Mild right sided conjunctival injection in right eye. ) Extremities: other (1+ edema BLE. L knee erythema present superior to patella with persistent warmth and mild tenderness. Inferior to patella erythema decreasing with decreasing warmth. Lichenification of feet decreasing bilaterally, fissuring still present. ) Abdomen: non-tender ICD10 Worksheet Patient Problems: Problems Problem Status Onset Abscess or cellulitis of foot Acute Transient ischemic attack Active Atrial fibrillation Acute CHF (congestive heart failure) Acute CHF exacerbation Acute Cellulitis Acute Chronic Disease Mgmt/Transitional Care Acute Leg edema Acute Malaise Acute Skin rash Acute Wide-complex tachycardia Acute
--- NOTE | 2017-12-24 12:38 | HOSPPROG ---
Hospitalist Progress Note Assessment/Plan: 82yo F with recurrent LE cellulitis, chronic venous stasis, permanent atrial fibrillation, mitral valve repair, chronic CHF who presents with worsening LLE erythema consistent with cellulitis in addition to tachycardia. #Atrial fibrillation with RVR: Difficult to control despite uptitration of AV olga blockers. Consulted cardiology, plan to increase BB today: coreg 6.25-> 12.5mg BID. Continue long acting diltiazem 180mg daily. She is adamant about no anticoagulation; thus, MICKY guided cardioversion is not a safe option at this point. Her outpatient plan, once infection is cleared, is for ablation and pacemaker placement with Dr Perez. #LLE non-purulent cellulitis: Not septic, stable erythema on exam. Concern for Strep species (beta-hemolytic based on appearance). ID following. Continue cefazolin for now while inpatient. Continue leg elevation and wound care. #Bilateral foot fungal infection: Trial anti-fungal cream. Likely portal of entry for #1. #Chronic CHF: Mild volume overload. Per patient request, decreasing ethacrynic acid 75->50mg daily (unlikely to be main precipitant of #1). #Chronic hypoxemic respiratory insufficiency: She is on nocturnal oxygen. This is stable. Will provide incentive spirometry. #CKD, stage 3: She is at her baseline serum creatinine of ~1.2. #Hyponatremia: Na low 130s, now improved. Monitor while on diuretics. #Hypothyroid: Continue thyroid replacement. #Anemia: Chronic, likely chronic disease. No e/o bleeding and H/H at baseline. VTE ppx: SQH Diet: regular Code; FCFT Disposition: to remain inpatient for administration of IV antibiotics and rate control of afib w/rvr. Upon discharge, we are recommending home health PT/RN. Subjective: Very itchy this morning and this also kept her up last night. She did use benadryl. Continues to deny shortness of breath, chest pain, palpitations, dizziness despite her high HR. Objective: Vital Signs Temp Pulse Resp BP Pulse Ox 36.6 C 133 H 18 114/82 H 90 L 12/24/17 11:43 12/24/17 11:43 12/24/17 11:43 12/24/17 11:43 12/24/17 11:43 Laboratory Results 12/24/17 03:38 12/24/17 03:38 12/23/17 12/24/17 12/25/17 05:59 05:59 05:59 Intake Total 1650 470 50 Output Total 950 1150 Balance 700 -680 50 PT 14.6 SEC (12.0-15.0) 12/20/17 14:27 INR 1.12 (0.83-1.16) 12/20/17 14:27 - Physical Exam Constitutional: no apparent distress, appears nourished, not in pain Eyes: PERRL, anicteric sclera, EOMI Ears, Nose, Mouth, Throat: moist mucous membranes, hearing normal, ears appear normal, no oral mucosal ulcers Cardiovascular: JVD (improved, just above clavicle while upright), tachycardia, edema (BLE 1+ pitting edema to mid rojas) Respiratory: no respiratory distress, no rales or rhonchi, clear to auscultation Gastrointestinal: normoactive bowel sounds, soft, non-tender abdomen, no palpable masses Skin: erythema (improved redness around R knee), other (extensive fissuring/ xerosis of bilateral toes ) Neurologic: AAOx3, sensation intact bilaterally Psychiatric: interacting appropriately, not anxious, not encephalopathic, thought process linear ICD10 Worksheet Patient Problems: Problems Problem Status Onset Abscess or cellulitis of foot Acute Transient ischemic attack Active Atrial fibrillation Acute CHF (congestive heart failure) Acute CHF exacerbation Acute Cellulitis Acute Chronic Disease Mgmt/Transitional Care Acute Leg edema Acute Malaise Acute Skin rash Acute Wide-complex tachycardia Acute
--- NOTE | 2017-12-24 14:26 | ASMTCMCOM ---
CM Note CM Note Notes: 12/24/2017 Case Management Note Discussed pt during rounds this morning. Pt will d/c on oral antibiotics. Anticipating d/c tomorrow. Met w/pt to discuss PT recommendation for home care. Pt willing to try nursing home aide and PT. Discussed home bound status. Pt requested case management refer to a new agency for home care. After discussion, faxed referrals at pt request to [facility]. Case Management d/c poc: [facility] pending acceptance Case Management to follow. Date Signed: 12/24/2017 02:25 PM Electronically Signed By:Nanette Lawrence RN
[2017-12-24] MEDS: MELATONIN 3 MG TAB PO SCH (20:51)
[2017-12-24] MEDS: MAGNESIUM OXIDE 400 MG TAB PO SCH (20:51)
[2017-12-25] MEDS: THYROID 60 MG TAB PO SCH (07:18)
--- NOTE | 2017-12-25 07:22 | PDCARPN ---
Cardiology Progress Note Chief Complaint: AF with RVR Assessment/Plan: Assessment: AF with RVR LE cellulitis Plan: 12/25/17 07:19 HR improved Currently asymptomatic from CV standpoint Continue current rate control f/u as outpatient PPM/AV node ablation when infection clears will follow prn Subjective: feels well Reviewed/Discussed With: multidisciplinary team Time Spent with Patient: greater than 25 minutes Time Spent with Patient: Greater than 25 minutes spent on this patients care, greater than 50% of time spent counseling, educating, and coordinating care regarding the above mentioned plan. Objective: Vital Signs (8 Hrs) Temp Pulse Resp BP Pulse Ox 12/25/17 04:00 36.4 C 62 16 120/65 90 L Intake/Output (24 Hrs) 12/24/17 12/25/17 12/26/17 05:59 05:59 05:59 Intake Total 470 1770 Output Total 1150 2800 Balance -680 -1030 Intake: Oral (ml) 400 1720 IV Intake (ml) 53 IV Infused (ml) 17 50 ceFAZolin 1 GM/DEXTROSE 17 50 50 ml @ 200 mls/hr IV Q12H [facility] Rx#:[id number] Output: Urine (ml) 1150 2800 Toilet 1150 2800 Other: Intake Quantity Yes Sufficient Number of Voids Incontinence 1 Toilet 1 Number of Stools Toilet 1 Result Diagrams: 12/24/17 03:38 12/25/17 03:54 - Physical Exam Constitutional: no apparent distress Eyes: PERRL Ears, Nose, Mouth, Throat: moist mucous membranes Cardiovascular: irregularly irregular Peripheral Pulses: 1+: femoral (R), femoral (L) Respiratory: clear to auscultate bilat Gastrointestinal: normoactive bowel sounds Genitourinary: no suprapubic tenderness Skin: other (LE edema) Musculoskeletal: no muscular tenderness Psychiatric: cooperative ICD10 Worksheet Patient Problems: Problems Problem Status Onset Abscess or cellulitis of foot Acute Transient ischemic attack Active Atrial fibrillation Acute CHF (congestive heart failure) Acute CHF exacerbation Acute Cellulitis Acute Chronic Disease Mgmt/Transitional Care Acute Leg edema Acute Malaise Acute Skin rash Acute Wide-complex tachycardia Acute
[2017-12-25] MEDS ORDERED: ETHACRYNIC ACID 25 MG TAB PO SCH (09:00)
[2017-12-25] MEDS: DILTIAZEM CD 180 MG CAP PO SCH (10:08)
[2017-12-25] MEDS: CETIRIZINE 10 MG TAB PO SCH (10:08)
[2017-12-25] MEDS: CARVEDILOL 6.25 MG TAB PO SCH ×2 (10:09→17:22)
[2017-12-25] MEDS: VITAMIN B COMPLEX 1 EA CAP/TAB PO SCH (10:09)
[2017-12-25] MEDS: TRIAMCINOLONE 0.1% 15GM OINT TP SCH ×2 (11:45→14:21)
[2017-12-25] MEDS ORDERED: ASCORBIC ACID 500 MG TAB PO SCH (16:00)
--- NOTE | 2017-12-25 16:12 | PDIAF ---
- Diagnosis Code Status: Full Code - Medication Management Discharge Medications: Medications to Continue on Transfer Ascorbic Acid [Vitamin C 500 mg (*)] 500 mg PO TID 12/17/15 [Last Taken 12/20/17 ] Calcitriol [Calcitriol (*)] 0.25 mcg PO WESA 08/31/16 [Last Taken 12/20/17] Melatonin [Melatonin 3 MG (*)] 3 mg PO HS 08/31/16 [Last Taken 12/19/17] Magnesium Oxide [Magnesium Oxide 400 mg (*)] 400 mg PO HS 01/22/17 [Last Taken 12/19/17] Vitamin B Complex [B Complex] 1 each PO DAILY 01/22/17 [Last Taken 12/20/17] Nature-Thyroid 65 mg PO DAILY 11/16/17 [Last Taken 12/20/17] Ethacrynic Acid [Edecrin 25 MG (*)] 75 mg PO DAILY 11/30/17 [Last Taken 12/20/17 ] Herbals/Supplements -Info Only 1 ea PO DAILY 11/30/17 [Last Taken 11/29/17] Carvedilol [Coreg (*)] 12.5 mg PO BIDMEAL #60 tab 12/25/17 [Last Taken Unknown] Cephalexin [Keflex (*)] 500 mg PO BID #10 cap 12/25/17 [Last Taken Unknown] Diltiazem Cd [Cardizem ER Q24hr] 180 mg PO DAILY #30 cap 12/25/17 [Last Taken Unknown] Discharge Medications: Refer to the Discharge Home Medication list for PRN reason. - Orders Services needed: Home Care, Registered Nurse, Physical Therapy Home Care Face to Face: I certify that this patient was under my care and that I had the required [id number] encounter meeting the encounter requirements on the discharge day. My findings support the fact that the patient is homebound as defined in Home Care Face to Face Continued: CMS Chapter 7 Medicare Benefits Manual 30.1.1 , The condition of the patient is such that there exists a normal inability to leave home and consequently, leaving home would require a considerable and taxing effort. Isolation Type: None Wound Care Instructions: Here are your wound care orders: Please follow up with your wall steamer. Clean both feet daily and remove any loose/peeling skin. Apply Atractain lotion (this can be purchased over the counter at your local pharmacy if you run out) to both feet twice a day, do not apply between the toes. Kiara Sanchez RN Wound care team Additional Instructions: 1. The infectious disease team wants you to continue antibiotics for 5 more days. We have prescribed cephalexin (keflex) 500mg twice daily. 2. We have changed two of your heart medications. You will now be taking diltiazem 180mg extended release once daily (NOT PRN) as well as carvedilol 12.5mg twice daily (increased from 6.25mg). 3. Please call Dr Perez's office to schedule an appointment after you complete your antibiotics. 4. We also recommend that you follow up with your wall steamer. - Follow Up Care Current Providers and Referrals: Cortez Bean DPM [Doctor of Podiatric Medicine] - NONE *PRIMARY CARE P,. [Primary Care Provider] - As per Instructions Benny Perez MD [Medical Doctor] -
--- NOTE | 2017-12-25 16:23 | ASMTDCNOTE ---
Case Management Discharge Discharge Order Complete? Answers: Yes Patient to Obtain Answers: Independently Medications Transportation Arranged Answers: Family/Friends Faxed Final Orders Answers: Yes Notes: to [facility] home care Agency/Facility Transfer Answers: Yes Report Printed & Faxed to Receiving Agency Discharge Comments Notes: 12/25/2017 Case Management Note Faxed discharge orders to [facility]. Pt to stay with Dr. Wilkins's practice and resume care with remaining practitioners at [facility] as PCP. Per pt, she is followed by [facility] as well. Discussed with [place] at [facility]. Provided info on [employer] project home coming. Friend to transport home. Date Signed: 12/25/2017 04:22 PM Electronically Signed By:Nanette Lawrence RN
--- NOTE | 2017-12-25 16:24 | ASDISCHSUM ---
Discharge Information Plan Status:Home with Home Health Medically Cleared to Leave:12/25/2017 Discharge Date:12/25/2017 CM D/C Disposition:Home Health Service ADT D/C Disposition:Home, Routine, Self-Care Projected Discharge Date:12/25/2017 11:00 AM Transportation at D/C:Friend Discharge Delay Reason: Follow-Up Date:12/25/2017 11:00 AM Discharge Slot: Final Diagnosis: Placement Information Referral Type:*Home Health Care Services Referral ID:[id number] Provider Name:[facility] ([facility]) Address 1:[address] [address] Address 2: City:[place] Selection Factors: State:[place] Patient Contact Information Contact Name:SALLY Relationship:Son Address: Work Phone: City:[facility] Alternate Phone: [facility]/Zip Code:[place] Email: Financial Information Financial Class:Medicare Primary Plan Desc:MEDICARE INPATIENT Primary Plan Number:[id number] Secondary Plan Desc:AARP/MDR SUPPLEMENT Secondary Plan Number:[id number] Assessment Information [facility] CM Progress Note CM Note CM Note Notes: Pt presented to the ED through triage for swollen feet and pain while ambulating. Pt was recently admitted 11/30/17 for bilateral leg cellulitis and discharged home with [facility] RN for wound care; pt was being followed by Dr Oliver w/ID. Spoke w/Chantale, RN w/[facility] and she said she opened pt on 12/04 and d/c'd pt on 12/14(?) due to patient driving herself to her podiatry appt w/ Dr Gaines ([phone]) and also pt stated she didn't want HC anymore. Refer to [facility] Reports for additional info. Chantale said she would be willing and able to re-open pt to their HC services if needed. Chantale expressed concern for pt not having enough help at home and thinks pt would benefit from a SNF stay. Pt had also been seen at [facility] on 12/10/17 (seen by Ebony Escamilla) but per August, pt did not want to follow their recommendations such as wearing compression stockings, etc. On 12/17 pt had her friend cut off the zinc oxide dressings Dr Gaines placed on 12/14; since then pt states she has been having increased pain and difficulty ambulating. Pt does not use a walker or cane when ambulating around her house. Pt has a housemate but they do not provide assistance. Pt states she receives help at home w/upkeep, etc. from her bilingual customer service specialist and also her friend/neighbor/MDPOA, Elza. Pt also has a niece, Bryanna. Pt's son, Bryson, lives in [place]. Pt states she has not been taking her medications for the past couple of days because she has been tired, not eating and sleeping a lot. Per chart review, pt is followed by by Dr Perez and Dr Longoria at [facility] and pt has an upcoming appt on 12/24/17 to discuss scheduling her pacemaker surgery. Pt has home oxygen provided by [employer]; pt states she recently received a new concentrator and that she was increased to 3L [place]. Pt's PMH include CHF, A-fib, Stage 3 Renal disease (followed by Dr Agarwal), mitral and bicuspid valve repair, hip replacements, venous stasis. Spoke w/ pt briefly about her possibly needing a short term SNF stay in order to heal and eventually return home safely. Pt states she did not have a good experience at [facility] (went in 2011 after hip replacement) but she did like the facility she went to in [facility]?) but she can't remember the name (per chart review, pt was discharged to [facility] facility in [place] back in 2010). Exact DC needs TBD; anticipate either pt needing SNF vs pt return home w/HC (skilled and non-skilled?) and family/friends to assist. CM to follow. Date Signed: 12/20/2017 05:27 PM Electronically Signed By:Neli Avila RN LACE LACE Acuity / Level of Answers: No Care: Did the patient have an inpatient admission? Comorbidities - select Answers: Congestive heart failure all that apply Moderate or severe liver or renal disease Other Notes: A-fib, venous stasis ulcers # of Emergency department Answers: 3-4 visits in the last 6 months Score: 10 Date Signed: 12/20/2017 05:29 PM Electronically Signed By:Neli Avila RN [facility] CM Progress Note CM Note CM Note Notes: Discussed patient in rounds. She lives with a roommate . Has wounds o her feet. Wound care eval pending. Adjusting medications for afib. CM to follow. Plan:TBD Date Signed: 12/21/2017 11:51 AM Electronically Signed By:Adry Watters RN [facility] CM Progress Note CM Note CM Note Notes: 12/23/2017 Case Management Note Met w/pt during rounds this morning. Pt currently being treated for rapid afib. Discussed with PT. PT recommending home care. Pt may need IV antibiotics upon discharge, will follow ID notes for instructions. Case Management d/c poc: to be determined. Case Management to follow. Date Signed: 12/23/2017 03:39 PM Electronically Signed By:Nanette Lawrence RN [facility] CM Progress Note CM Note CM Note Notes: 12/24/2017 Case Management Note Discussed pt during rounds this morning. Pt will d/c on oral antibiotics. Anticipating d/c tomorrow. Met w/pt to discuss PT recommendation for home care. Pt willing to try home health scheduler and PT. Discussed home bound status. Pt requested case management refer to a new agency for home care. After discussion, faxed referrals at pt request to [facility]. Case Management d/c poc: [facility] home care pending acceptance Case Management to follow. Date Signed: 12/24/2017 02:25 PM Electronically Signed By:Nanette Lawrence RN Case Management Discharge Plan Note Case Management Discharge Discharge Order Complete? Answers: Yes Patient to Obtain Answers: Independently Medications Transportation Arranged Answers: Family/Friends Faxed Final Orders Answers: Yes Notes: to [facility] home care Agency/Facility Transfer Answers: Yes Report Printed & Faxed to Receiving Agency Discharge Comments Notes: 12/25/2017 Case Management Note Faxed discharge orders to [facility]. Pt to stay with Dr. Wilkins's practice and resume care with remaining practitioners at [facility] as PCP. Per pt, she is followed by [facility] practice as well. Discussed with [place] at [facility]. Provided info on [employer] Whe[employer] project home coming. Friend to transport home. Date Signed: 12/25/2017 04:22 PM Electronically Signed By:Nanette Lawrence RN Intervention Information Intervention Type:Post Acute Communication Date of Service:12/20/2017 05:30 PM Patient Type:Observation Staff Member:ISI Avila, Neli Hours:0.5 Discipline:Online Retailer Severity: Comment: Intervention Type:*BLUE-Signed Date of Service:12/21/2017 02:01 PM Patient Type:Observation Staff Member:Maria Alejandra Melendrez Hours: Discipline: Severity: Comment: Intervention Type:*IM-Signed Date of Service:12/25/2017 02:37 PM Patient Type:Inpatient Staff Member:Maria Alejandra Melendrez Hours: Discipline: Severity: Comment:
[2017-12-25 17:24] VITALS: BP 126/70
--- NOTE | 2017-12-25 17:55 | PCMIDPN ---
Assessment/Plan: Assessment/Plan: * Recurrent left lower extremity cellulitis: Cellulitis localized around left knee continues to improve with decreased erythema and edema. Think can transition to oral antibiotic therapy for completion of treatment. Will change cefazolin to cephalexin 500 mg orally twice daily x5 additional days. Discussed with patient ongoing care for lichenification of feet and need for regular podiatry follow-up. Advised that she not expose her feet to other substances or soaks. Clinical findings and plan discussed with Dr. Cordero today. 12/25/17 17:52 Subjective: Patient complains of diffuse pruritis. Feels like this is worse while on antibiotics. Eager to go home. Objective: Vital Signs Temp Pulse Resp BP Pulse Ox 36.8 C 68 18 126/70 H 93 12/25/17 12:00 12/25/17 17:22 12/25/17 12:00 12/25/17 17:22 12/25/17 12:00 Laboratory Results 12/24/17 03:38 12/25/17 03:54 12/24/17 12/25/17 12/26/17 05:59 05:59 05:59 Intake Total 470 1770 1480 Output Total 1150 2800 1250 Balance -680 -1030 230 Cefazolin # 5 Blood cultures x2 no growth - Physical Exam General Appearance: alert, no apparent distress EENT: No scleral icterus, No thrush Extremities: inflammation (Left knee erythema less prominent with decreased edema; warmth decreased but not fully resolve, nontender, no pain with range of motion of joint) Skin: other (Persistent lichenification over plantar aspect of feet bilaterally although decreased versus time of admit; fissuring between toes remains) ICD10 Worksheet Patient Problems: Problems Problem Status Onset Abscess or cellulitis of foot Acute Transient ischemic attack Active Atrial fibrillation Acute CHF (congestive heart failure) Acute CHF exacerbation Acute Cellulitis Acute Chronic Disease Mgmt/Transitional Care Acute Leg edema Acute Malaise Acute Skin rash Acute Wide-complex tachycardia Acute
[2017-12-26] MEDS ORDERED: THYROID 60 MG TAB PO SCH (07:00)
--- NOTE | 2017-12-27 20:59 | PDDCSUM ---
Discharge Summary Discharge Summary: Date of Admission: 12/20/2017 Date of Discharge: 12/25/2017 Consultants: cardiology, infectious disease Procedures/Studies: none Brief Hospital Course by Diagnosis: 82yo F with recurrent LE cellulitis, chronic venous stasis, permanent atrial fibrillation, mitral valve repair, chronic CHF who presents with worsening LLE erythema consistent with cellulitis in addition to tachycardia. #Atrial fibrillation with RVR: Controlled with uptitration of AV olga blockers and management of infection. Discharged on long-acting diltiazem 180mg daily and carvedilol 12.5mg daily. Her PRN diltiazem was discontinued. She is not anticoagulated per her wishes despite elevated [id number] score; she is aware of the risks of VTE. Her outpatient plan, once infection is cleared, is for ablation and pacemaker placement with Dr Perez. #LLE non-purulent cellulitis: Overlying left knee. No concern for septic joint. ID consulted; she received several days of IV cefazolin and discharged with 5 more days of cephalexin. #Bilateral foot wounds: Significant lichenification and fissuring between toes. Likely portal of entry for recurrent celluiltis. Wound care consulted. Advised to apply atractain lotion BID with regular cleansing. Discussed need for routine podiatry follow up, wearing socks with closed toe shoes, no soaks. #Chronic CHF: Compensated. We continued her ethacrynic acid at 75mg daily. Increased her BB as above. #Chronic hypoxemic respiratory insufficiency: She is on nocturnal oxygen. #CKD, stage 3: She is at her baseline serum creatinine of ~1.2. #Hypothyroidism: Continue thyroid replacement. #Anemia: Chronic, likely chronic disease. No e/o bleeding and H/H at baseline. Follow Up Plan: 1. Once completes antibiotics, follow up with Dr Perez for discussion of PPM? ablation 2. Routine podiatry follow up Medications at Discharge: Please refer to EMR for complete medication list. We have made the following adjustments: started cephalexin 500mg BID for 5 days, increased carvedilol from 6.25->12.5mg BID, discontinued short-acting diltiazem PRN and added long-acting diltiazem 180mg daily. Otherwise, no medication changes were made. Physical Exam: Vitals reviewed and patient examined on day of discharge. She is alert and oriented. She has a regular rate and rhythm with clear lung diaz. She has improved left knee erythema and warmth.
--- NOTE | 2018-01-07 10:04 | ASMTLACE ---
LACE Length of stay for Answers: 4-6 days current admission Acuity / Level of Answers: Yes Care: Did the patient have an inpatient admission? Comorbidities - select Answers: Congestive heart failure all that apply Moderate or severe liver or renal disease Other Notes: A-fib, venous stasis ulcers # of Emergency department Answers: 3-4 visits in the last 6 months Score: 17 Date Signed: 01/07/2018 10:03 AM Electronically Signed By:Maria Alejandra Melendrez
== END 2017-12-25 19:02 | disposition home health service (06) | DRG 603 ==
LOC: INTOOBSV 14:23 → F2W 16:05 → OBSVTOIN 12-21 14:20
PROVIDERS: ADMIT Internal Medicine; ATTEND Internal Medicine
DX: L03.116 Cellulitis of left lower limb (principal); I50.22 Chronic systolic (congestive) heart failure; J96.11 Chronic respiratory failure with hypoxia; E87.1 Hypo-osmolality and hyponatremia; I48.2 Chronic atrial fibrillation; N18.3 Chronic kidney disease, stage 3 (moderate); E03.9 Hypothyroidism, unspecified; D63.8 Anemia in other chronic diseases classified elsewhere; I87.2 Venous insufficiency (chronic) (peripheral); I27.20 Pulmonary hypertension, unspecified; E53.8 Deficiency of other specified B group vitamins; B36.9 Superficial mycosis, unspecified
CPT/HCPCS: 97110-GP; 97116-GP; 97161-GP; 97166-GO; 97535-GO; G0378; G8978-GP-CK; G8979-GP-CI; G8987-GO-CJ; G8988-GO-CI; J0690; J1644; J2550; J3370

== ENCOUNTER → 2018-01-18 | Outpatient (CLI) | payer OTHER, MEDICARE | LOC: BHFA 14:00 | PROVIDERS: ATTEND Internal Medicine Cardiovascular Disease | DX: I48.91 Unspecified atrial fibrillation (principal); I50.9 Heart failure, unspecified ==

== ENCOUNTER → 2018-03-03 | Outpatient (CLI) | payer OTHER, MEDICARE | LOC: FIMAGING 13:29 | PROVIDERS: ATTEND Internal Medicine Nephrology | DX: R14.0 Abdominal distension (gaseous) (principal) ==

== ENCOUNTER → 2018-04-22 | Outpatient (CLI) | payer OTHER, MEDICARE | LOC: BMCIMAGING 12:18 | PROVIDERS: ATTEND Family Medicine | DX: N63.21 Unspecified lump in the left breast, upper outer quadrant (principal); N64.59 Other signs and symptoms in breast ==

== ENCOUNTER 2018-07-06 14:20 | Day surgery (SDC) | payer OTHER, MEDICARE ==
[2018-07-06] MEDS ORDERED: LR 1,000 ML IV ONE (14:56)
--- NOTE | 2018-07-06 15:47 | PDHPUP ---
History & Physical Update H&P update statement: This history and physical update is based on an assessment of the patient which was completed after admission or registration (within 24 hours), but prior to the surgery/procedure. H&P update: H&P reviewed & patient examined, no change in patient's condition since H&P completed
--- NOTE | 2018-07-06 15:50 | POSTOPPROG ---
Post Op Note Date of Operation: 07/06/18 Surgeon: Ziyad Alegria Child Care Associate: Eladia Weston PA-C Anesthesiologist: Dr. Oates Pre-op Diagnosis: Left breast cancer Post-op Diagnosis: same Procedure: Left central lumpectomy Inf/Abcess present in the surg proc area at time of surgery?: No EBL: Minimal Complications: no immediate Specimen(s): left breast mass
[2018-07-06] MEDS ORDERED: LIDOCAINE 1% 300 MG/30 ML SDV ONE (16:07)
[2018-07-06] MEDS ORDERED: BUPIVACAINE/EPI 0.5% 30 ML SDV ONE (16:07)
[2018-07-06] MEDS ORDERED: PROPOFOL/EMULSION 500 MG/50 ML BOTTLE IV ONE (16:59)
[2018-07-06] MEDS ORDERED: ACETAMINOPHEN 500 MG TAB PO PRN (17:14)
[2018-07-06] MEDS ORDERED: HYDROCODONE/APAP 5/325 TAB PO PRN (17:14)
[2018-07-06] MEDS ORDERED: fentaNYL 100 MCG/2 ML INJ IVP PRN (17:14)
[2018-07-06] MEDS ORDERED: NALOXONE HCL 0.4 MG/ML INJ IVP PRN (17:14)
[2018-07-06] MEDS ORDERED: ONDANSETRON 4 MG/2 ML VIAL IVP PRN (17:14)
[2018-07-06] MEDS ORDERED: ALBUTEROL 3 ML DEYVIAL IH PRN (17:14)
--- NOTE | 2018-07-06 17:14 | PDANEPAE ---
ANE History of Present Illness Left Breast Biopsy ANE Past Medical History - Cardiovascular History Hx Hypertension: No Hx Arrhythmias: Yes Hx Chest Pain: No Hx Coronary Artery / Peripheral Vascular Disease: No Hx CHF / Valvular Disease: Yes Hx Palpitations: No Cardiovascular History Comment: chronic A-fib. mitral valve repaired '08- denies C.P. - Pulmonary History Hx COPD: No Hx Asthma/Reactive Airway Disease: No Hx Recent Upper Respiratory Infection: No Hx Oxygen in Use at Home: Yes O2 in Use at Home (L/minute): 4L/NC when sleeping Hx Sleep Apnea: No Sleep Apnea Screening Result - Last Documented: Negative Pulmonary History Comment: SOB w/walking and talking. Uses O2 at night x 10-15 yrs due to heart condition - Neurologic History Hx Cerebrovascular Accident: No Hx Seizures: No Hx Dementia: No - Endocrine History Hx Diabetes: No Endocrine History Comment: hypothyroid- on RX - Renal History Hx Renal Disorders: Yes Renal History Comment: CKD stage 3, due to contrast dye. incontinence - Liver History Hx Hepatic Disorders: No Hepatic History Comment: "healers working on liver and kidneys" - Neurological & Psychiatric Hx Hx Neurological and Psychiatric Disorders: No - Cancer History Hx Cancer: No - Congenital Disorder History Hx Congenital Disorders: No - GI History Hx Gastrointestinal Disorders: Yes Gastrointestinal History Comment: strict diet due to kidney failure. Gluten- free diet. GMO free diet. - Other Health History Other Health History: Eczema- since kidney failure Osteoporosis. sneezing, nasal drip. areas of skin discoloration, darkening. glasses for reading - Chronic Pain History Chronic Pain: No - Surgical History Prior Surgeries: mitral & bicuspid valve repair-2007. bilat hip replacement. bilat cataract extraction w/IOL ANE Review of Systems Review of Systems: - Exercise capacity METS (RN): 3 METS ANE Patient History - Allergies Allergies/Adverse Reactions: amoxicillin Allergy (Verified 07/06/18 14:47) Rash Iodinated Contrast- Oral and IV Dye Allergy (Verified 07/06/18 14:47) "KILLED MY KIDNEYS" Penicillins Allergy (Verified 12/20/17 12:22) Rash SEASONAL Allergy (Uncoded 11/30/17 16:58) SNEEZING, RUNNY NOSE - Home Medications Home Medications: Calcitriol [Calcitriol (*)] WESA 08/31/16 [Last Taken 07/05/18] Adrenal Rebuilder 07/06/18 [Last Taken 07/06/18] Coq-10 07/06/18 [Last Taken 07/05/18] Edecrin 25 MG (*) 07/06/18 [Last Taken 07/06/18] Herbals/Supplements -Info Only 07/06/18 [Last Taken 07/05/18] Krill Oil 07/06/18 [Last Taken 07/05/18] Liothyronine Sodium 07/06/18 [Last Taken 07/06/18] Prednisone 07/06/18 [Last Taken 07/06/18] Probiotic 07/06/18 [Last Taken 07/05/18] Vitamin K 07/06/18 [Last Taken 07/05/18] Wp Thyroid 07/06/18 [Last Taken 07/06/18] - NPO status NPO Since - Liquids (Date): 07/06/18 NPO Since - Liquids (Time): 13:30 NPO Since - Solids (Date): 07/05/18 NPO Since - Solids (Time): 23:00 - Smoking Hx Smoking Status: Never smoked - Family Anes Hx Family Hx Anesthesia Complications: none ANE Labs/Vital Signs - Vital Signs Blood Pressure: 164/73 Heart Rate: 45 Respiratory Rate: 15 O2 Sat (%): 94 Height: 162.56 cm Weight: 54.431 kg ANE Physical Exam - Airway Neck exam: FROM Mallampati Score: Class 2 Mouth exam: normal dental/mouth exam - Pulmonary Pulmonary: clear to auscultation - Cardiovascular Cardiovascular: regular rate and rhythym - ASA Status ASA Status: III ANE Anesthesia Plan Anesthesia Plan: GA with mask
--- NOTE | 2018-07-06 17:55 | POSTANESTH ---
Post Anesthetic Evaluation Cardiovascular Status: Normal, Stable Respiratory Status: Normal, Stable Level of Consciousness/Mental Status: Can Participate in Eval, Alert and Oriented Pain Control: Adequate, Prn Tx Ordered Nausea/Vomiting Control: Adequate, Prn Tx Ordered Complications Possibly Related to Anesthesia: None Noted
--- NOTE | 2018-07-06 18:52 | GOP ---
[f rep st] OPERATIVE REPORT DATE OF OPERATION: 07/06/2018 SURGEON: Ziyad Alegria MD GUM MIXER: Eladia Weston PA-C. ANESTHESIA: MAC. ANESTHESIOLOGIST: Earl Oates DO. PREOPERATIVE DIAGNOSIS: Locally advanced left breast carcinoma. POSTOPERATIVE DIAGNOSIS: Locally advanced left breast carcinoma. PROCEDURE PERFORMED: Left partial mastectomy. FINDINGS: See below. INDICATIONS: 82-year-old female with a locally advanced left breast carcinoma, with full-thickness skin erosion. She is undergoing a partial mastectomy at this time. Risks and benefits were explained including, but not limited to, bleeding, infection, tumor recurrence, and need for additional margin resection. She has requested that lymph node sampling not be undertaken nor clips be left within her breast cavity. All questions were entertained. She desires to proceed. A surgical scheduler is standard, necessary, and customary for the safe performance of this procedure. DESCRIPTION OF PROCEDURE: Monitored anesthesia was started. The left breast was infiltrated with 1% lidocaine with 0.5% Marcaine. The full-thickness tumor was present superior and lateral to the nipple-areolar complex just beneath the axillary tail. The tumor was encroaching along the lateral aspect of the nipple. A large elliptical incision was created full thickness incorporating the nipple-areolar complex with multiple centimeters of normal-appearing skin and fashioned obliquely up toward the axillary tail. This was taken full thickness down to the chest wall. The pectoralis major fascia, as well as portions of pectoralis major muscle were included beneath the tumor itself. This was taken towards the lateral chest wall. Tumor was peeled from medial to lateral off the pectoralis major fascia and onto the serratus anterior muscle. It was tagged for orientation, and sent for permanent specimen processing. Additional margins of the superior and inferior aspect of the cavity were all excised. The skin had been completely skeletonized radially. Satisfactory hemostasis was assured. The defect was elevated off the chest wall and closed in multiple layers with absorbable suture by Dermabond. The patient was taken to Recovery uneventfully. Copy requested to: STEPHANIE KEN Trav #: [id number]
[2018-07-06 19:07] VITALS: BP 144/58
== END 2018-07-06 19:13 | disposition home or self-care (01) ==
LOC: FSGY 14:20
PROVIDERS: ATTEND Surgery
PROC: 0HBU0ZZ Excision of Left Breast, Open Approach (ICD-10-PCS; principal; 2018-07-06 15:30)
DX: C50.312 Malignant neoplasm of lower-inner quadrant of left female breast (principal); N18.3 Chronic kidney disease, stage 3 (moderate); I48.2 Chronic atrial fibrillation; E03.9 Hypothyroidism, unspecified
CPT/HCPCS: J2704

== ENCOUNTER → 2018-08-25 | Outpatient (CLI) | payer OTHER, MEDICARE | LOC: BHFA 15:30 | PROVIDERS: ATTEND Internal Medicine Cardiovascular Disease | DX: I48.91 Unspecified atrial fibrillation (principal) ==

== ENCOUNTER → 2018-09-28 | Outpatient (CLI) | payer OTHER, MEDICARE | LOC: FCPNEURO 23:10 | PROVIDERS: ATTEND Student in an Organized Health Care Education/Training Program | DX: G47.33 Obstructive sleep apnea (adult) (pediatric) (principal) ==